=== PATIENT | male | born 1975 | race African-American/Black ===

== ENCOUNTER 2021-07-28 16:55 | Emergency (ER) | payer MEDICAID, SELFPAY ==
--- NOTE | ~2021-07-28 | XR_ITS ---
XR toe 1st LT min 2V 07/28/2021 20:22 Indication: Left first toe pain. Patient is diabetic. Missing toenail. Procedure: 3 views left first toe Comparison: No prior studies for comparison. Findings: There is moderate soft tissue swelling of the left first toe. There are erosive changes at the tuft. There is soft tissue gas overlying the tuft. No acute fracture is identified. There is mild osteoarthritis of the first MTP and IP joints. Impression: 1: Erosive changes of the tuft of the left first distal phalanx with overlying soft tissue swelling w ith gas. Findings suspicious for osteomyelitis. Reviewed, dictated and finalized at location A. Impression: 1: Erosive changes of the tuft of the left first distal phalanx with overlying soft tissue swelling with gas. Findings suspicious for osteomyelitis.
--- NOTE | ~2021-07-28 | CT_ITS ---
EXAMINATION: CT cervical spine wo con DATE: 07/28/2021 20:07 INDICATION: Neck pain after trauma TECHNIQUE: Computed tomography (CT) of the cervical spine was performed without intravenous contrast. The dose-length product was 322 mGy-cm. Automated exposure control and iterative reconstruction tech nique were employed. COMPARISON: None FINDINGS: Odontoid process within normal limits. Lateral masses are normally aligned. There is degene rative disc disease at C4-5, C5-6 and C6-7 with prominent dorsal osteophytes at C5-6 and C6-7. There is straightening of cervical lordosis, likely due to muscle spasm or patient positioning. There is mu ltilevel uncinate and facet hypertrophy. There is emphysema of the lung apices. No paraspinal soft ti ssue abnormality. IMPRESSION: 1. No acute abnormality of the cervical spine. 2: Moderate cervical spondylosis. Reviewed, dictated and finalized at location A.
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
--- NOTE | ~2021-07-28 | CT_ITS ---
EXAMINATION: CT BRAIN W/O DATE: 07/28/2021 20:06 INDICATION: Headache after trauma TECHNIQUE: Computed tomography (CT) of the head was performed without intravenous contrast. The dose- length product was 605.33 mGy-cm. Automated exposure control and iterative reconstruction technique w ere employed. COMPARISON: No prior studies for comparison. FINDINGS: Normal brain parenchymal volume for age. Normal frankel-white differentiation. No acute intrac ranial hemorrhage, infarction, mass or mass effect. No ventriculomegaly or midline shift. Midline sagittal images demonstrate a normal corpus callosum, c raniovertebral junction and sella turcica. Basilar cisterns are patent. No depressed skull fractures. There is mild mucosal thickening of the frontal sinus. IMPRESSION: 1. No acute intracranial abnormality. Reviewed, dictated and finalized at location A.
[2021-07-28 18:53] VITALS: BP 154/80; PULSE 100; RESP 20; TEMP 36.9; O2SAT 100
--- NOTE | 2021-07-28 20:00 | ED.FALL ---
HPI - Fall General Chief Complaint: Fall Stated Complaint: left side body pain Time Seen by Provider: 07/28/21 19:03 History of Present Illness HPI Narrative: Patient is a 46-year-old male who presents ER status post fall 1 day ago. Reports he believes he fell down 10 stairs. He has been able to ambulate since then. He reports significant pain to his left shoulder where there is swelling. Does not want to perform range of motion with the arm at the shoulder. He is able to perform range of motion at the elbow/wrist and fingers. No numbness or tingling. Patient also has some chronic issues with his left toe and believes he struck his toe when he fell as well. He is not on blood thinners. He has not been taking pain medication at home. Patient has diabetic. He is concerned his sugar may have been low when he fell. Related Data Allergies Allergy/AdvReac Type Severity Reaction Status Date / Time No Known Allergies Allergy Verified 07/28/21 20:26 Review of Systems Review of Systems: All systems reviewed & are unremarkable except as noted in HPI and below Constitutional: Constitutional: Denies chills, Denies fever(s) and Denies weakness ENT: Denies nasal congestion and Denies sore throat Cardiovascular: Cardiovascular: Denies chest pain, Denies rapid heart rate and Denies radiating jaw, neck or arm pain Respiratory: Respiratory: Denies cough and Denies dyspnea Musculoskeletal: Musculoskeletal: Reports arthralgias, Reports joint swelling and Denies muscle cramps Integumentary/Breasts: Skin/Breast: Reports erythema Neurologic: Reports syncope, Denies headache(s), Denies focal weakness and Denies numbness PMFSH Past Medical History Medical History (Updated 07/28/21 @ 23:45 by Cayetano Lozano MD) Diabetes Surgical History Surgical History (Updated 07/28/21 @ 23:41 by Cayetano Lozano MD) No pertinent past surgical history Social History Social History (Updated 07/28/21 @ 23:41 by Cayetano Lozano MD) Substance use: never Exam Narrative: GENERAL: Well-appearing, well-nourished, and in no acute distress. HEAD: Normocephalic, atraumatic. EYES: PERRL and EOMI. NECK: Supple. No midline tenderness of the cervical spine. CHEST: Clear to auscultation. No respiratory distress. HEART: Regular rate and rhythm. Normal peripheral pulses. ABDOMEN: Soft, nontender, nondistended. EXTREMITIES: Left upper extremity at the shoulder appears swollen with decreased range of motion due to pain. Normal range of motion at the elbow/wrist/hand. Left lower extremity the great toe is thickened and callused over the plantar aspect, the toenail is ill-defined and there is some slight redness. There is a lot of cotton from the sock stuck to the toe as well.. No frequent discharge. No foul odor. Normal strength. The great toe is slightly pink compared to the other toes. No crepitus of the left foot or leg. SKIN: Warm, dry, no rash. NEURO: Alert and oriented x3. PSYCH: Normal mood and affect. Course Course Emergency Course: Patient informed of lab and imaging results. I discussed with him the importance of hospitalization and prolonged IV antibiotics. Patient reports he does not want to stay in the hospital and he will come back first thing in the morning to be admitted. I discussed with him the risks of not receiving care which includes loss of life/limb/permanent disability. He is verbalized understanding of this and assures me he will be back in the morning. Discussed patient I have serious concerns since he does not have a PCP and he takes no medications for his diabetes. This is not convinced him to stay. Vital Signs Vital signs: Vital Signs Temperature 98.5 F 07/28/21 18:53 Pulse Rate 100 07/28/21 18:53 Respiratory Rate 20 07/28/21 18:53 Blood Pressure 154/80 H 07/28/21 18:53 Pulse Oximetry 100 07/28/21 18:53 Temperature 98.5 F 07/28/21 18:53 Pulse Rate 100 07/28/21 18:53 Respirato
[2021-07-28] MEDS: MORPHINE SULFATE (*CRX) 4 MG/ML INJ IV PUSH (20:28)
[2021-07-28 21:49] LABS: Basophils Absolute Auto 0.1 K/mm3 (0.0-0.1); Basophils Percent Auto 0.3 % (0.2-1.2); Eosinophils Percent Auto 0.1 % (0-4.4); Hematocrit 42.7 % (42.0-52.0); Hemoglobin 14.5 g/dL (14.0-18.0); Immature Granulocyte Absolute 0.12 K/mm3 (0.00-0.031); Immature Granulocyte Percent A 0.6 % (0-0.5); Lymphocytes Absolute Auto 1.01 K/mm3 (0.9-3.2); Lymphocytes Percent Auto 5.2 % (18.3-44.2); Mean Corpuscular Hemoglobin 28.4 pg (26-34); Mean Corpuscular Volume 83.7 fl (80-100); Mean Platelet Volume 11.5 fl (7.4-10.4); Monocytes Absolute Auto 2.6 K/mm3 (0.1-0.6); Monocytes Percent Auto 13.1 % (2.6-8.5); Neutrophils Absolute Auto 15.7 K/mm3 (1.3-6.7); Neutrophils Percent Auto 80.7 % (45.5-73.1); Platelet Count Result 274 k/mm3 (150-375); Red Cell Distribution Width 13.3 % (11.5-14.5); White Blood Count 19.5 K/mm3 (4.5-10.0)
[2021-07-28 22:20] LABS: Erythrocyte Sedimentation Rate 18 mm/hr (0-20)
[2021-07-28 22:40] LABS: Anion Gap 11 mmol/L (8-16); Blood Urea Nitrogen 27 mg/dL (9-20); CRP 8.6 mg/dL (<1.0); Carbon Dioxide 23 mmol/L (22-30); Chloride 96 mmol/L (98-107); Estimated CRCL calculation 114 ml/min; Estimated Glomerular Filt Rate > 60; Glucose 495 mg/dL (65-110); Potassium 4.9 mmol/L (3.4-5.0); Sodium 130 mmol/L (137-145)
--- NOTE | 2021-07-28 23:15 | PC.NURSE ---
Assuming care of pt.
--- NOTE | 2021-07-28 23:47 | PC.NURSE ---
Pt signing out AMA states he will be back in the morning he doesn't want to stay tonight. PT given risk of refusal such as , worsening condition, loss of limb or disability.
== END 2021-07-28 23:50 | disposition left against medical advice (07) ==
PROVIDERS: Emergency Provider Emergency Medicine
DX: M86.9 Osteomyelitis, unspecified (principal); E11.9 Type 2 diabetes mellitus without complications; M47.812 Spondylosis without myelopathy or radiculopathy, cervical region
CPT/HCPCS: 36415; 70450; 72125; 73030; 73660; 80048; 85025; 85652; 86140; 96374; 99284; J2270

== ENCOUNTER 2021-07-29 12:17 | Inpatient (IN) | payer OTHER, MEDICAID, SELFPAY ==
[2021-07-29] VITALS (13 sets, daily range): BP systolic 123–157; BP diastolic 70–89; PULSE 91–99; RESP 18–21; TEMP 36.4–37.1; O2SAT 93–100; BMI 22.5
--- NOTE | ~2021-07-29 | XR_ITS ---
EXAMINATION: XR lg joint inject/asp w image EXAM DATE: 07/30/2021 13:51 INDICATION: Large joint effusion and bacteremia. Abnormal CT scan, suspected septic arthritis. TECHNIQUE: This procedure was performed by Dr. Abilio Reyes, radiologist. I discussed procedure inclu ding the risks, benefits and alternatives with the patient. Risks discussed included bleeding and inf ection. The patient understood the risks and agreed to proceed. A time-out was performed to verify the patient's name, date of , and procedure. The skin over lying the left shoulder joint was prepped and draped in usual sterile fashion. Anesthetic was admini stered with 3 milliliters 1% lidocaine subcutaneously. A 20 G lumbar puncture needle was advanced un krishna fluoroscopic guidance into the joint. A total of 27 mL of purulent fluid was able to be aspirated from the left shoulder joint. The needle was removed and the entry site was cleaned and dressed. Th ere were no immediate complications. Pulsed dose reduction fluoroscopy was used with fluoroscopic ti me of less than 0.1 minutes. The DAP for this procedure was 0.02 Gycm2. A total of 3 images obtaine d for the exam. The procedure was performed on 07/30/2021. FINDINGS: Real-time fluoroscopy demonstrates the needle in the left shoulder joint. Some metallic shr apnel overlying the scapula. IMPRESSION: Status post left shoulder joint aspiration with removal of 27 mL purulent fluid, sent to lab for analysis. Reviewed, dictated and finalized at location A. IMPRESSION: Status post left shoulder joint aspiration with removal of 27 mL pu rulent fluid, sent to lab for analysis.
--- NOTE | ~2021-07-29 | XR_ITS ---
EXAMINATION: XR foot RT min 3V EXAM DATE: 07/29/2021 13:51 INDICATION: Ulcer Rt Plantar Mid Ball Of Foot/Approx Base Of 2nd Toe . TECHNIQUE: Right foot dorsoplantar, lateral and oblique projections obtained and reviewed. There is no prior study for comparison. FINDINGS: Right metatarsal bones unremarkable. Small calcaneal spur inferiorly. There are no acute fractures or dislocations identified. There is no subcutaneous gas. There is lucency which could co rrespond to the soft tissue ulceration along the volar aspect of the 2nd metatarsal head. There are n o bony erosions identified. There are no radiopaque foreign bodies. There is mild to moderate rig ht 1st MTP primary osteoarthritis. IMPRESSION: 1. Probable soft tissue ulceration. 2. No evidence of right foot osteomyelitis. Reviewed, dictated and finalized at location A.
--- NOTE | ~2021-07-29 | US_ITS ---
EXAMINATION: US right upper quadrant DATE: 08/03/2021 14:23 INDICATION: Elevated liver enzymes TECHNIQUE: Multiple grayscale and Doppler ultrasound images of the abdomen were obtained. COMPARISON: None FINDINGS: The pancreatic bodies normal in appearance. The pancreatic tail is not visualized in the region of t he head of the pancreas is obscured by shadowing gas in the stomach and proximal duodenum. Liver has normal echogenicity and contour, with a smooth surface. No liver lesion identified. No intrahepatic b iliary duct dilation suspected. Portal venous flow was seen in the hepatopetal, normal direction and has normal Doppler waveform. The visualized proximal to mid inferior vena cava is normal. The gallbla dder is normal in appearance. There is no cholelithiasis. The common bile duct measures 3 mm, which is normal. Sonographic Wadsworth sign was reported as negative by the household worker.Right kidney demonstra wil normal contour and axis is seen measuring 14.1 x 5.8 x 5.5 cm with no hydronephrosis. The proxima l aorta measures 2.7 cm in AP diameter. There is dilation of the proximal main portal vein which rica ures up to 18 mm proximal to the liver, tapering to 11 mm in the chris hepatis which is nonspecific b ut could be seen with portal venous hypertension. IMPRESSION: 1. Increased diameter of the main portal vein which is nonspecific but which can be seen with portal venous hypertension. Otherwise normal right upper quadrant ultrasound. Reviewed, dictated and finalized at location A. IMPRESSION: 1. Increased diameter of the main portal vein which is nonspecific but which ca n be seen with portal venous hypertension. Otherwise normal right upper quadran t ultrasound.
--- NOTE | ~2021-07-29 | CT_ITS ---
EXAMINATION: CT shoulder LT w con EXAM DATE: 07/30/2021 11:57 INDICATION: Shoulder injury, fall, bacteremia. TECHNIQUE: Spiral CT shoulder LT w con was performed following intravenous injection of 100 mL Omnipa que 350. Axial, coronal and sagittal images were reviewed. The dose-length product (DLP) for this e xamination was 264.12 mGy-cm. The exposure was tailored according to patient size (auto mA exposure control), and iterative reconstruction (ASIR) was used as additional dose reduction technique. Correl ation is made to shoulder x-ray from 07/28. FINDINGS: There is a large left shoulder joint effusion with distention of the subcoracoid bursa, flu id tracking to the anterior aspect of the scapula. There are multiple foci of gas inside and the join t capsule is enhancing. Appearance is consistent with shoulder joint septic arthritis. There is exten sive edema within the subcutaneous fat of the shoulder and obscuring the fat planes between the muscl es. No erosion of the glenoid or humeral head. There is mild primary osteoarthritis. IMPRESSION: Large left shoulder joint effusion with enhancing capsule and foci of gas, likely septic arthritis. I discussed these findings with Cookie Pineda PA-C at 07/30/2021 12:11 CDT. Diagnostic aspiration in order. Reviewed, dictated and finalized at location A.
[2021-07-29 12:58] LABS: Basophils Absolute Auto 0.1 K/mm3 (0.0-0.1); Basophils Percent Auto 0.2 % (0.2-1.2); Hematocrit 39.3 % (42.0-52.0); Hemoglobin 13.3 g/dL (14.0-18.0); Immature Granulocyte Absolute 0.16 K/mm3 (0.00-0.031); Immature Granulocyte Percent A 0.7 % (0-0.5); Lymphocytes Absolute Auto 1.15 K/mm3 (0.9-3.2); Lymphocytes Percent Auto 5.2 % (18.3-44.2); Mean Corpuscular HGB Conc 33.8 g/dl (32-36); Mean Corpuscular Hemoglobin 28.2 pg (26-34); Mean Corpuscular Volume 83.4 fl (80-100); Mean Platelet Volume 11.3 fl (7.4-10.4); Monocytes Absolute Auto 2.9 K/mm3 (0.1-0.6); Monocytes Percent Auto 13.2 % (2.6-8.5); Neutrophils Percent Auto 80.7 % (45.5-73.1); Platelet Count Result 245 k/mm3 (150-375); Red Blood Count 4.71 M/mm3 (4.6-6.20); Red Cell Distribution Width 13.4 % (11.5-14.5); White Blood Count 22.3 K/mm3 (4.5-10.0)
[2021-07-29 13:13] LABS: Anion Gap 8 mmol/L (8-16); Blood Urea Nitrogen 22 mg/dL (9-20); CRP 8.8 mg/dL (<1.0); Calcium 8.4 mg/dL (8.4-10.2); Carbon Dioxide 26 mmol/L (22-30); Chloride 94 mmol/L (98-107); Estimated CRCL calculation 104 ml/min; Estimated Glomerular Filt Rate > 60; Glucose 551 mg/dL (65-110); Potassium 4.8 mmol/L (3.4-5.0); Sodium 128 mmol/L (137-145)
[2021-07-29 13:25] LABS: Erythrocyte Sedimentation Rate 22 mm/hr (0-20)
[2021-07-29] MEDS: LACTATED RINGERS 1,000 ML 999 ML IV CONT (14:01)
[2021-07-29] MEDS: INSULIN HUMAN REGULAR (*BKC) 100 UNITS/ML IV PUSH (14:39)
--- NOTE | 2021-07-29 15:30 | PM.IMHP ---
H&P: HPI History of Present Illness Date/Time: 07/29/21 15:30 Chief Complaint: Left toe wound. Narrative: This is a 46-year-old male smoker with type 2 diabetes mellitus and diabetic peripheral neuropathy who presented to the emergency department earlier today from home for evaluation of a left toe wound. The patient was seen in the emergency department last evening, 24 hours after he took a fall down approximately 10 steps. At that time he had several imaging studies including an x-ray of his left 1st toe, found to have erosive changes of the tuft of the distal phalanx suspicious for osteomyelitis. Initially the patient was going to be admitted for IV antibiotics however he apparently had some things he needed to take care of and he returned today for admission. On exam he was also noted to have an ulcer on the plantar aspect of the right foot which he states has been there for quite some time. It is occasionally uncomfortable with weight-bearing and typically drains serosanguineous fluid. He has no significant pain in the left 1st toe. He reports occasional cold and hot sweats but he has not felt feverish. No nausea or vomiting. No history of MRSA. Review of Systems Review of Systems: Twelve systems were reviewed. Two nights ago he fell down approximately 10 steps and told me he woke up at the bottom of the staircase, thinking perhaps that he blacked out in the fall. He actually thought that perhaps his glucose had been low, causing him to block out though he does not have a glucometer at home and could not checked. He was seen emergency department last evening and CT of the head and neck were unremarkable. His main complaint is of pain in his left shoulder and x-ray done last evening showed no acute fracture. He continues to have pain in this shoulder with only a small amount of movement. Random glucose today was over 500 and the patient admits that he has not taken his metformin for well over 6 months if not longer. He does not check his glucose at home. Endorses occasional blurry vision, polydipsia, and polyuria. He denies ever having signs or symptoms of alcohol withdrawal. Except as documented, all other systems were reviewed and are negative. FORMERLY [facility], [facility] Past Medical History Medical History (Updated 07/29/21 @ 18:20 by Doris Zhong PA-C) Diabetic peripheral neuropathy Tobacco dependence Type 2 diabetes mellitus Surgical History Surgical History No history of previous surgery Family History Family History Father Diabetes mellitus Social History Social History (Updated 07/29/21 @ 18:18 by Doris Zhong PA-C) Social History: Surrogate decision maker: Silver Fairbanks, friend. CODE STATUS: Full code. Smoking packs per day: 1 Smoking cigarettes per day: 20.0 Years smoked: 20 Smoking pack-years: 20.00 Smoking status: Current every day smoker Tobacco type: cigarettes Alcohol intake: current Drinks per week: 14 Alcohol use details: Two cans of beer a night. Substance use: current Substance use type: marijuana Additional living arrangements comments: The patient lives in [place]. The mother of his child lives in this area and he frequently stays with her. Additional occupation/education comments: Currently unemployed. Meds Home Medications and Allergies Home Medications Medication Instructions Recorded Confirmed Type No Home Medications 07/29/21 07/29/21 History Allergies Allergy/AdvReac Type Severity Reaction Status Date / Time No Known Allergies Allergy Verified 07/29/21 17:51 Vital Signs Vital Signs - 24 hr 07/29/21 12:22 07/29/21 12:26 07/29/21 12:27 Temperature 97.5 F L Pulse Rate 99 Respiratory Rate 20 Blood Pressure 129/78 129/78 Pulse Oximetry 99 100 99 07/29/21 12:30 07/29/21 12:43 07/29/21 12:50 Temperature Pulse
[2021-07-29 16:04] LABS: Glucose Point of Care 409 mg/dl (65-105)
[2021-07-29] MEDS: HYDROcodone/acetaminophen (*CRX) 5-325 MG TABLET 1 TAB PO ×2 (16:39→20:31)
--- NOTE | 2021-07-29 16:45 | ED.SKABFB ---
HPI - Skin/Abscess/Foreign Bdy General Chief complaint: Skin/Abscess/Foreign Body Stated complaint: infection in my bone Time Seen by Provider: 07/29/21 12:37 Source: patient Mode of arrival: ambulatory Limitations: no limitations History of Present Illness HPI narrative: 46-year-old male Here for infected left great toe Basically, see last night's note when he was evaluated in the ED and admission was recommended but the patient left to take care of some things and is now returned for said admission He also had a very high blood sugar last night which is even a little bit higher now He mentions that he has not taken Metformin for at least a week He also notes that he has a large hole in the bottom of his right foot which she did not called anyone's attention yesterday Related Data Home Medications Medication Instructions Recorded Confirmed No Home Medications 07/29/21 07/29/21 Allergies Allergy/AdvReac Type Severity Reaction Status Date / Time No Known Allergies Allergy Verified 07/29/21 12:17 Review of Systems Review of Systems: All systems reviewed & are unremarkable except as noted in HPI and below Constitutional: Constitutional: Reports no additional constitutional complaints, Denies chills, Denies fever(s) and Denies headache(s) ENT: Denies headache(s) and Denies sore throat Cardiovascular: Cardiovascular: Denies chest pain and Denies dyspnea Respiratory: Respiratory: Denies cough and Denies dyspnea Gastrointestinal: Gastrointestinal: Denies diarrhea, Denies nausea and Denies vomiting Musculoskeletal: Musculoskeletal: Reports as per HPI, Denies deformity, Reports arthralgias, Reports joint swelling and Denies numbness Integumentary/Breasts: Skin/Breast: Denies rash and Denies wounds Neurologic: Denies headache(s), Denies focal weakness and Denies numbness PMFSH Past Medical History Medical History Tobacco dependence Type 2 diabetes mellitus Surgical History Surgical History No history of previous surgery Family History Family History Other Diabetes mellitus Social History Social History Social History: The patient lives in [place]. Currently unemployed. He smokes a pack of cigarettes a day. Drinks approximately 2 cans of beer a night. No illicit substance use. He designates his friend, Silver Fairbanks, is his surrogate decision-maker. CODE STATUS: Full code Exam Const: General: cooperative, no acute distress and alert Nutritional Appearance: thin Orientation/consciousness: patient oriented x3 (alert) HENMT: Head: normal to inspection, normocephalic and atraumatic Ears: external ears normal General nose exam: no epistaxis Eyes: Conjunctivae: conjunctivae normal EOM: EOMs intact bilaterally Neck: Neck: normal visual inspection, supple and no JVD Resp: Effort & Inspection: normal respiratory effort and not labored Auscultation: other (BS =) Skin: General skin exam: normal color and no rashes or lesions noted Neuro: General: patient oriented x3 (alert) and moves all extremities Speech: normal speech Extrem: Other: Left great toe and forefoot are tender, swollen, erythematous There is a deep ulcer over probably the second metatarsal head of the right foot 2+ dorsalis pedis pulses bilaterally Psych: Affect: normal affect Course Course Emergency Course: Marked hyperglycemia was treated with fluids and a single dose of insulin Osteo was not suspected in the right foot based upon plain films Discussed with hospitalist for admission for osteo and hyperglycemia Vital Signs Vital signs: Vital Signs Temperature 36.4 C L 07/29/21 12:22 Pulse Rate 99 07/29/21 12:22 Respiratory Rate 20 07/29/21 12:22 Blood Pressure 129/78 07/29/21 12:22
[2021-07-29] MEDS: LACTATED RINGERS 1,000 ML 125 ML IV CONT (17:25)
--- NOTE | 2021-07-29 17:53 | ADMGEN ---
This patient, Celso López, was admitted to Medical Room 344-01. Patient/family oriented to hospital policies and general routines including ID bracelet, bed and alarms, visiting hours, pain management, procedures, bathroom and other care routines, personal items, smoking policy, room service/diet, and visiting hours. Information on how to activate the Rapid Response Team has been discussed. Patient/Family are encouraged to report perceived risks to care and to ask questions if they do not understand what they are told or what they should do.
--- NOTE | 2021-07-29 17:53 | PC.NURSE ---
Patient was previously on 500 mg BID Metformin but has not been on it in around a year
[2021-07-29 18:21] LABS: Lactic Acid Reflex 1.1 mmol/L (0.7-2.1)
[2021-07-29 18:35] LABS: Basophils Absolute Auto 0.1 K/mm3 (0.0-0.1); Basophils Percent Auto 0.2 % (0.2-1.2); Eosinophils Percent Auto 0.1 % (0-4.4); Hemoglobin 12.8 g/dL (14.0-18.0); Immature Granulocyte Percent A 0.9 % (0-0.5); Lymphocytes Absolute Auto 1.52 K/mm3 (0.9-3.2); Lymphocytes Percent Auto 7.2 % (18.3-44.2); Mean Corpuscular HGB Conc 34.6 g/dl (32-36); Mean Corpuscular Hemoglobin 28.1 pg (26-34); Mean Corpuscular Volume 81.3 fl (80-100); Mean Platelet Volume 11.6 fl (7.4-10.4); Monocytes Absolute Auto 2.7 K/mm3 (0.1-0.6); Monocytes Percent Auto 12.9 % (2.6-8.5); Neutrophils Absolute Auto 16.7 K/mm3 (1.3-6.7); Neutrophils Percent Auto 78.7 % (45.5-73.1); Platelet Count Result 268 k/mm3 (150-375); Red Blood Count 4.55 M/mm3 (4.6-6.20); Red Cell Distribution Width 13.4 % (11.5-14.5); White Blood Count 21.2 K/mm3 (4.5-10.0)
[2021-07-29 19:59] LABS: Hemoglobin A1C 10.4 % (<5.7)
[2021-07-29 20:58] LABS: Glucose Point of Care 354 mg/dl (65-105)
[2021-07-30] MEDS: INSULIN GLARGINE (*BKC) 100 UNITS/ML 10 UNITS SUB-Q (00:07)
[2021-07-30] MEDS: HYDROcodone/acetaminophen (*CRX) 5-325 MG TABLET 1 TAB PO ×5 (04:21→23:18)
[2021-07-30 06:00] VITALS: BP 155/83; PULSE 91; RESP 20; TEMP 36.2; O2SAT 99
[2021-07-30 06:31] LABS: Basophils Absolute Auto 0.1 K/mm3 (0.0-0.1); Basophils Percent Auto 0.4 % (0.2-1.2); Eosinophils Percent Auto 0.1 % (0-4.4); Hematocrit 35.8 % (42.0-52.0); Hemoglobin 12.3 g/dL (14.0-18.0); Immature Granulocyte Absolute 0.13 K/mm3 (0.00-0.031); Immature Granulocyte Percent A 0.7 % (0-0.5); Lymphocytes Absolute Auto 1.35 K/mm3 (0.9-3.2); Lymphocytes Percent Auto 7.2 % (18.3-44.2); Mean Corpuscular HGB Conc 34.4 g/dl (32-36); Mean Corpuscular Hemoglobin 28.1 pg (26-34); Mean Corpuscular Volume 81.9 fl (80-100); Mean Platelet Volume 11.7 fl (7.4-10.4); Monocytes Absolute Auto 2.5 K/mm3 (0.1-0.6); Monocytes Percent Auto 13.1 % (2.6-8.5); Neutrophils Absolute Auto 14.8 K/mm3 (1.3-6.7); Neutrophils Percent Auto 78.5 % (45.5-73.1); Platelet Count Result 257 k/mm3 (150-375); Red Blood Count 4.37 M/mm3 (4.6-6.20); Red Cell Distribution Width 13.3 % (11.5-14.5); White Blood Count 18.8 K/mm3 (4.5-10.0)
[2021-07-30 07:46] LABS: Glucose Point of Care 223 mg/dl (65-105)
[2021-07-30] MEDS: ENOXAPARIN 40 MG/0.4 ML SYRINGE SUB-Q (07:58)
[2021-07-30] MEDS: INSULIN ASPART (*BKC) 100 UNITS/ML SUB-Q ×3 (07:59→16:22)
[2021-07-30 09:24] LABS: Anion Gap 6 mmol/L (8-16); Blood Urea Nitrogen 15 mg/dL (9-20); CRP 29.1 mg/dL (<1.0); Calcium 8.6 mg/dL (8.4-10.2); Carbon Dioxide 26 mmol/L (22-30); Chloride 99 mmol/L (98-107); Estimated CRCL calculation 160 ml/min; Estimated Glomerular Filt Rate > 60; Glucose 214 mg/dL (65-110); Potassium 4.2 mmol/L (3.4-5.0); Sodium 131 mmol/L (137-145)
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
[2021-07-30 11:46] LABS: Glucose Point of Care 394 mg/dl (65-105)
[2021-07-30 13:05] LABS: Uric Acid 2.6 mg/dL (3.5-8.5)
[2021-07-30 14:00] VITALS: BP 133/80; PULSE 87; RESP 18; TEMP 37.5; O2SAT 99
--- NOTE | 2021-07-30 14:13 | PM.CNGS ---
Assessment and Plan Assessment and plan (1) Left hallux osteomyelitis: Code(s): M86.9 - Osteomyelitis, unspecified Status: Acute Assessment and Plan: I have reviewed the x-rays and discussed findings with the patient. He does have findings concerning for osteomyelitis of the left 1st toe. I discussed that this may eventually require amputation. Will continue with local wound care at this time and monitor for any improvement in swelling. I discussed that this infection can progress and it might be better to proceed with amputation earlier to avoid any more proximal infection. Will have wound care nurses evaluate patient tomorrow for any other recommendations on local wound care (2) Diabetic ulcer of right foot: Qualifiers: Diabetic foot ulcer location: midfoot Diabetes mellitus type: type 2 Non-pressure ulcer stage: unspecified non-pressure ulcer stage Qualified Code(s): E11.621 - Type 2 diabetes mellitus with foot ulcer; L97.419 - Non-pressure chronic ulcer of right heel and midfoot with unspecified severity Code(s): E11.621 - Type 2 diabetes mellitus with foot ulcer; L97.519 - Non-pressure chronic ulcer of other part of right foot with unspecified severity Status: Acute Assessment and Plan: plantar wound on right foot will likely require some surgical debridement. Will plan for this to be done in the next couple days, but will await decision on left toe treatment. (3) Type 2 diabetes mellitus with hyperglycemia: Qualifiers: Diabetes mellitus assisted insulin use: without assisted use Qualified Code(s): E11.65 - Type 2 diabetes mellitus with hyperglycemia Code(s): E11.65 - Type 2 diabetes mellitus with hyperglycemia Status: Acute Assessment and Plan: discussed the importance of better glucose control to avoid further vascular or infectious complications (4) Tobacco dependence: Code(s): F17.200 - Nicotine dependence, unspecified, uncomplicated Status: Acute (5) Septicemia: Code(s): A41.9 - Sepsis, unspecified organism Status: Acute (6) Effusion of left shoulder joint: Code(s): M25.412 - Effusion, left shoulder Status: Acute History of Present Illness Consult details Consult date: 07/30/21 Reason for consult: other (Left toe right foot diabetic wounds) Requesting physician: Doris Zhong PA-C Narrative: this is a 46-year-old man who presented to the emergency department yesterday with worsening complaints for with foot wounds and shoulder pain from a recent fall. He had actually been to the emergency department on 07/28/2021. He was found to have a very high white blood count and was also noted to have a glucose of 495. A toe x-ray on 07/28 showed erosive changes of the 1st toe consistent with osteomyelitis. He left the emergency department AMA. He then presented back to the emergency department on 07/29 with similar complaints. His white blood count was higher and his glucose was 551. he was then admitted and placed on broad-spectrum IV antibiotics. He is also found to have a large left shoulder joint effusion suspicious for septic arthritis. His blood cultures are coming back positive for Gram-positive cocci in chains. The patient states that his glucose has been poorly controlled lately. He has not been on his normal type 2 diabetes meds. He has also lost a significant amount of weight with the diabetes. He denies any prior history of peripheral vascular disease or claudication. Review of Systems Review of Systems: All systems reviewed & are unremarkable except as noted in HPI and below Constitutional: Constitutional: Denies chills, Denies fever(s) and Reports weight loss Eyes: Eyes: Denies change in vision ENT: Denies hearing loss, Denies neck pain and Denies sore throat Cardiovascular: Cardiovascular: Denies chest pain and Denies dyspnea Respiratory: Respiratory: Denies cough, Denies
[2021-07-30 15:04] LABS: Source Synovial Fluid Synovial fluid
[2021-07-30 15:05] LABS: Appearance Synovial Fluid Turbid (Clear); Color Synovial Fluid Brown (Colorless)
[2021-07-30 15:06] LABS: Lymphocytes Synovial Fluid 1 %; Monocytes Synovial Fluid 2 %; Neutrophils Synovial Fluid 97 % (0-25)
[2021-07-30 15:07] LABS: Crystals Synovial Fluid None Seen (None Seen)
[2021-07-30] MEDS: VANCOMYCIN HCL 1,250 MG in SODIUM CHLORIDE 0.9% IV 250 ML 200 ML IVPB (15:23)
[2021-07-30 16:21] LABS: Glucose Point of Care 394 mg/dl (65-105)
[2021-07-30] MEDS: INSULIN GLARGINE (*BKC) 100 UNITS/ML 15 UNITS SUB-Q (20:13)
[2021-07-30 20:17] LABS: Glucose Point of Care 371 mg/dl (65-105)
[2021-07-30 22:00] VITALS: BP 124/75; PULSE 80; RESP 16; TEMP 37.1; O2SAT 100
[2021-07-31] VITALS (16 sets, daily range): BP systolic 117–190; BP diastolic 72–102; PULSE 75–98; RESP 11–22; TEMP 36.2–37.1; O2SAT 96–100
[2021-07-31] MEDS: HYDROcodone/acetaminophen (*CRX) 5-325 MG TABLET 1 TAB PO ×2 (03:18→07:37)
[2021-07-31] MEDS: VANCOMYCIN HCL 1,250 MG in SODIUM CHLORIDE 0.9% IV 250 ML IVPB (03:19)
[2021-07-31 05:25] LABS: Basophils Absolute Auto 0.1 K/mm3 (0.0-0.1); Basophils Percent Auto 0.5 % (0.2-1.2); Eosinophils Absolute Auto 0.1 K/mm3 (0-0.3); Eosinophils Percent Auto 0.3 % (0-4.4); Hematocrit 35.4 % (42.0-52.0); Immature Granulocyte Absolute 0.13 K/mm3 (0.00-0.031); Immature Granulocyte Percent A 0.9 % (0-0.5); Lymphocytes Absolute Auto 2.02 K/mm3 (0.9-3.2); Lymphocytes Percent Auto 13.3 % (18.3-44.2); Mean Corpuscular HGB Conc 33.9 g/dl (32-36); Mean Corpuscular Hemoglobin 28.5 pg (26-34); Mean Corpuscular Volume 84.1 fl (80-100); Mean Platelet Volume 10.6 fl (7.4-10.4); Monocytes Absolute Auto 2.1 K/mm3 (0.1-0.6); Neutrophils Absolute Auto 10.8 K/mm3 (1.3-6.7); Platelet Count Result 275 k/mm3 (150-375); Red Blood Count 4.21 M/mm3 (4.6-6.20); Red Cell Distribution Width 13.3 % (11.5-14.5); White Blood Count 15.2 K/mm3 (4.5-10.0)
[2021-07-31 06:21] LABS: HIV 1/2 Ab P24 Ag Result Negative (Negative)
[2021-07-31 07:09] LABS: Alanine Aminotransferase 80 U/L (4-50); Albumin Level 3.1 g/dL (3.5-5.1); Alkaline Phosphatase 156 U/L (38-126); Anion Gap 3 mmol/L (8-16); Aspartate Amino Transferase 58 U/L (17-59); Bilirubin,Total 0.8 mg/dL (0.2-1.3); Blood Urea Nitrogen 13 mg/dL (9-20); CRP 29.9 mg/dL (<1.0); Calcium 8.7 mg/dL (8.4-10.2); Carbon Dioxide 32 mmol/L (22-30); Chloride 97 mmol/L (98-107); Estimated CRCL calculation 160 ml/min; Estimated Glomerular Filt Rate > 60; Glucose 217 mg/dL (65-110); Potassium 3.7 mmol/L (3.4-5.0); Sodium 132 mmol/L (137-145)
[2021-07-31 08:08] LABS: Glucose Point of Care 229 mg/dl (65-105)
[2021-07-31] MEDS: INSULIN ASPART (*BKC) 100 UNITS/ML SUB-Q (08:25)
[2021-07-31] MEDS: ENOXAPARIN 40 MG/0.4 ML SYRINGE SUB-Q (08:25)
--- NOTE | 2021-07-31 09:09 | PM.CNOR ---
Assessment and Plan Additional Plan septic left shoulder prob staph aureus as this is growing in his blood 27 cc aspirated by radiology earlier with 67k WBCs cultures on fluid aspirate still pending NPO now - eat bfast at around 7:30. will take to OR this PM for I+D. shoulder ascope and possible placement of drain. History of Present Illness HPI Consult date: 07/31/21 Chief complaint: Left 1st toe osteomyelitis Narrative: 46 yo w/ DM and swollen left shoulder which was aspirated yest and has a presumtive septic shoulder PMFSH Past Medical History Medical History Diabetic peripheral neuropathy Tobacco dependence Type 2 diabetes mellitus Surgical History Surgical History No history of previous surgery Family History Family History Father Diabetes mellitus Social History Social History Social History: Surrogate decision maker: Silver Fairbanks, friend. CODE STATUS: Full code. Smoking packs per day: 1 Smoking cigarettes per day: 20.0 Years smoked: 20 Smoking pack-years: 20.00 Smoking status: Current every day smoker Tobacco type: cigarettes Alcohol intake: current Drinks per week: 14 Alcohol use details: Two cans of beer a night. Substance use: current Substance use type: marijuana Additional living arrangements comments: The patient lives in [place]. The mother of his child lives in this area and he frequently stays with her. Additional occupation/education comments: Currently unemployed. Meds Home Medications and Allergies Home Medications Medication Instructions Recorded Confirmed Type No Home Medications 07/29/21 07/29/21 History Allergies Allergy/AdvReac Type Severity Reaction Status Date / Time No Known Allergies Allergy Verified 07/29/21 17:51 Vital Signs Vital Signs - 24 hr 07/30/21 14:00 07/30/21 22:00 07/31/21 05:29 Temperature 37.5 C 37.1 C 37.1 C Pulse Rate 87 80 80 Respiratory Rate 18 16 16 Blood Pressure 133/80 124/75 117/74 Pulse Oximetry 99 100 98 Exam Extrem: Other: left shoudler swollen and warm to touch pain with any motion NV intact distally aspriation site is C+D Results Labs Result Diagrams: 07/31/21 05:07 07/31/21 05:07 Labs: Abnormal lab results 07/30/21 07/30/21 07/30/21 Range/Units 05:18 11:44 12:34 WBC (4.5-10.0) K/mm3 RBC (4.6-6.20) M/mm3 Hgb (14.0-18.0) g/dL Hct (42.0-52.0) % MPV (7.4-10.4) fl Immature Gran % (Auto) (0-0.5) % Lymph % (Auto) (18.3-44.2) % [place] % (Auto) (2.6-8.5) % [place] # (Auto) (0.1-0.6) K/mm3 Abs Immat Gran (auto) (0.00-0.031) K/mm3 Absolute Neuts (auto) (1.3-6.7) K/mm3 Sodium 131 L (137-145) mmol/L Chloride (98-107) mmol/L Carbon Dioxide (22-30) mmol/L Anion Gap 6 L (8-16) mmol/L Creatinine 0.50 L (0.7-1.3) mg/dL Glucose 214 H (65-110) mg/dL POC Capillary Glucose 394 H (65-105) mg/dl Uric Acid 2.6 L (3.5-8.5) mg/dL ALT (4-50) U/L Alkaline Phosphatase (38-126) U/L C-Reactive Protein 29.1 H (<1.0) mg/dL Albumin (3.5-5.1) g/dL Synovial Appearance (Clear) Synovial RBC (0-0) /uL Synovial Nuc Cells (0-200) /uL Synovial Neutrophils (0-25) % 07/30/21 07/30/21 07/30/21 Range/Units 13:30 16:18 20:09 WBC (4.5-10.0) K/mm3 RBC (4.6-6.20) M/mm3 Hgb (14.0-18.0) g/dL Hct (42.0-52.0) % MPV (7.4-10.4) fl Immature Gran % (Auto) (0-0.5) % Lymph % (Auto) (18.3-44.2) % [place] % (Auto) (2.6-8.5) % [place] # (Auto) (0.1-0.6) K/mm3 Abs Immat Gran (auto) (0.00-0.031) K/mm3 Absolute Neuts (auto) (1.3-6.7) K/mm3 Sodium (137-145) mmol/L Chloride (
[2021-07-31 11:33] LABS: Glucose Point of Care 248 mg/dl (65-105)
--- NOTE | 2021-07-31 12:55 | PC.NURSE ---
To OR per bed, IV LFA. Report given to
--- NOTE | 2021-07-31 13:15 | PM.PNGS ---
Progress Note: A&P Assessment and Plan (1) Left hallux osteomyelitis: Code(s): M86.9 - Osteomyelitis, unspecified Status: Acute Assessment and Plan: Left first toe with findings on x-ray concerning for osteomyelitis. There is no large open wound, but there is a scant amount of purulent drainage that was expressed on the dorsal aspect of the toe today. Discussed treatment options with the patient again today. Could consider proceeding with an I&D of the left great toe prior to considering amputation. He is scheduled to go to the OR today for I&D left shoulder. Continue broad-spectrum IV antibiotics and we will continue with local wound care. If this does not improve over the next few days with more conservative treatment, then we may need to consider amputation sooner. (2) Diabetic ulcer of right foot: Qualifiers: Diabetes mellitus type: type 2 Diabetic foot ulcer location: midfoot Non-pressure ulcer stage: unspecified non-pressure ulcer stage Qualified Code(s): E11.621 - Type 2 diabetes mellitus with foot ulcer; L97.419 - Non-pressure chronic ulcer of right heel and midfoot with unspecified severity Code(s): E11.621 - Type 2 diabetes mellitus with foot ulcer; L97.519 - Non-pressure chronic ulcer of other part of right foot with unspecified severity Status: Acute Assessment and Plan: Plantar wound on the right foot is currently stable. This will likely require some surgical debridement with the large callus around the open wound. Would try to plan for debridement on the right foot ulcer at the time of any surgical intervention to the left foot. See plan above. (3) Septicemia: Code(s): A41.9 - Sepsis, unspecified organism Status: Acute Assessment and Plan: Secondary to osteomyelitis of left great toe versus septic left shoulder. Continue broad-spectrum IV antibiotics. Preliminary blood cx show growth of group B strep. L shoulder aspiration cx pending. See plan above regarding diabetic foot ulcer. (4) Effusion of left shoulder joint: Code(s): M25.412 - Effusion, left shoulder Status: Acute Assessment and Plan: Presumed septic left shoulder. Ortho consulted and recommendations noted. Plan to proceed to the OR for I&D later today. 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 Hgb A1C 10.4. Management per Hospitalist. Additional Plan I have discussed the patient's case and plan of care with Dr. Hanley. Subjective Subjective Date/Time Seen: 07/31/21 10:15 Patient reports: no new complaints and afebrile Interval history: This is a 46 yo uncontrolled diabetic AA male who presented to the hospital with diabetic foot ulcer of the right foot, possible osteomyelitis of the left 1st toe, sepsis, and also found to have a potentially septic left shoulder. He was admitted and started on broad-spectrum IV antibiotics. Blood cultures were drawn and preliminary results show a growth of Group B strep. Chart reviewed. The patient is now seen this morning with the wound care nurse. He has no specific complaints this morning. No acute events overnight. He states he is going to the OR today for surgery on his left shoulder. He reports pain in his left shoulder and feet that is about the same as when he was initially admitted. He cannot recall when he first noticed the wound on his right foot or swelling in his left 1st toe. He feels it has been awhile. He does not have a PCP and denies ever seeing a [employer] Job Retention Specialist in the past. He is currently unemployed. Review of Systems Review of Systems: All systems reviewed & are unremarkable except as noted in HPI
[2021-07-31 13:26] LABS: Glucose Point of Care 238 mg/dl (65-105)
[2021-07-31] MEDS: LACTATED RINGERS 1,000 ML 30 ML IV CONT ×2 (13:33→16:02)
--- NOTE | 2021-07-31 14:02 | WPDANESEPPF ---
Anes - Initial Pre Proc Eval Procedure: Operation Date: 07/31/21 14:00 Proposed Procedures p Incision and Drainage Left Shoulder - Gab Winn MD Date/Time: 07/31/21 14:02 Surgeon: Cookie Pineda PA-C Pre Op Diagnosis: Left 1st toe osteomyelitis Patient Data Age: 46 Gender: M Height: 1.8 m Weight: 73.3 kg Last Vital Signs Temp 37.1 C 07/31/21 13:36 Pulse 76 07/31/21 13:36 Resp 14 07/31/21 13:36 BP 132/81 07/31/21 13:36 Pulse Ox 100 07/31/21 13:36 Allergies Allergy/AdvReac Type Severity Reaction Status Date / Time No Known Allergies Allergy Verified 07/29/21 17:51 Home Medications Medication Instructions Recorded Confirmed Type No Home Medications 07/29/21 07/29/21 History Laboratory Tests 07/30/21 07/30/21 07/30/21 13:30 13:30 16:18 WBC RBC Hgb Hct MCV MCH MCHC RDW Plt Count MPV Immature Gran % (Auto) Neut % (Auto) Lymph % (Auto) [place] % (Auto) Eos % (Auto) Baso % (Auto) Lymph # (Auto) [place] # (Auto) Eos # (Auto) Baso # (Auto) Abs Immat Gran (auto) Absolute Neuts (auto) Absolute Nucleated RBC Nucleated RBC % Sodium Potassium Chloride Carbon Dioxide Anion Gap BUN Creatinine Estim Creat Clear Calc Estimated GFR Glucose POC Capillary Glucose 394 mg/dl H mg/dl (65-105) Calcium Total Bilirubin Direct Bilirubin AST ALT Alkaline Phosphatase C-Reactive Protein Total Protein Albumin Synovial Source Synovial fluid Synovial Color Brown (Colorless) Synovial Appearance Turbid A (Clear) Synovial RBC 25893 /uL H /uL (0-0) Synovial Nuc Cells [id number] /uL H /uL (0-200) Synovial Neutrophils 97 % H % (0-25) Synovial Lymphocytes 1 % % Synovial Monocytes 2 % % Synovial Crystals None seen (None Seen) HIV 1&2 Ab/P24 Ag 4thGn 07/30/21 07/31/21 07/31/21 20:09 05:07 05:07 WBC 15.2 K/mm3 H K/mm3 (4.5-10.0) RBC 4.21 M/mm3 L M/mm3 (4.6-6.20) Hgb 12.0 g/dL L g/dL (14.0-18.0) Hct 35.4 % L % (42.0-52.0) MCV 84.1 fl fl (80-100) MCH 28.5 pg pg (26-34) MCHC 33.9 g/dl g/dl (32-36) RDW 13.3 % % (11.5-14.5) Plt Count 275 k/mm3 k/mm3 (150-375) MPV 10.6 fl H fl (7.4-10.4) Immature Gran % (Auto) 0.9 % H % (0-0.5) Neut % (Auto) 71.0 % % (45.5-73.1) Lymph % (Auto) 13.3 % L % (18.3-44.2) [place] % (Auto) 14.0 % H % (2.6-8.5) Eos % (Auto) 0.3 % % (0-4.4) Baso % (Auto) 0.5 % % (0.2-1.2) Lymph # (Auto) 2.02 K/mm3 K/mm3 (0.9-3.2) [place] # (Auto) 2.1 K/mm3 H K/mm3 (0.1-0.6) Eos # (Auto) 0.1 K/mm3 K/mm3 (0-0.3) Baso # (Auto) 0.1 K/mm3 K/mm3 (0.0-0.1) Abs Immat Gran (auto) 0.13 K/mm3 H K/mm3 (0.00-0.031) Absolute Neuts (auto) 10.8 K/mm3 H K/mm3 (1.3-6.7) Absolute Nucleated RBC 0.0 K/mm3 K/mm3 (0.0-0.012) Nucleated RBC % 0.0 % % (0.0-0.2) Sodium Potassium Chloride Carbon Dioxide Anion Gap BUN Creatinine Estim Creat Clear Calc Estimated GFR Glucose POC Capillary Glucose 371 mg/dl H mg/dl (65-105) Calcium Total Bilirubin Dir
--- NOTE | 2021-07-31 14:02 | WPDHPUPDATE1 ---
History and Physical Update Update Date/Time: 07/31/21 14:02 History and Physical has been reviewed, including an updated exam of the patient. There are NO changes in the patient's condition. Risks, benefits, and alternatives have been discussed and questions answered. Patient agrees to proceed with procedure.
--- NOTE | 2021-07-31 14:06 | WPDINFPN2 ---
Progress Note: A&P Assessment and Plan (1) Septicemia: Code(s): A41.9 - Sepsis, unspecified organism Status: Acute Assessment and Plan: Group B Strep bacteremia with infection, LE source, resulting in septic arthritis L shoulder REC (antibiotic # 3) Amp #1, anticipate ~ 28 days IV therapy. Subjective Date/time seen: 07/31/21 14:06 Objective Data Vital Signs Vital Signs: Vital Signs - 24 hr 07/30/21 22:00 07/31/21 05:29 07/31/21 08:25 Temperature 37.1 C 37.1 C Pulse Rate 80 80 Respiratory Rate 16 16 16 Blood Pressure 124/75 117/74 Pulse Oximetry 100 98 97 07/31/21 13:36 Temperature 37.1 C Pulse Rate 76 Respiratory Rate 14 Blood Pressure 132/81 Pulse Oximetry 100 Intake/Output Intake/Output: Intake & Output 07/28/21 07/29/21 07/30/21 07/31/21 23:59 23:59 23:59 23:59 Intake Total 1350 2180 690 Balance 1350 2180 690 Meds/Results Medications: Active Medications Generic Name Dose Route Start Last Admin Trade Name Freq PRN Reason Stop Dose Admin Acetaminophen 650 mg 07/29/21 16:32 Acetaminophen 325 Mg Tablet PO Q4H PRN Mild Pain (1-3) or Fever Hydrocodone Bitart/Acetaminophen 1 tab 07/29/21 16:32 07/31/21 07:37 Hydrocodone/Acetaminophen (*Crx) 5-325 Mg Tablet PO 1 tab Q4H PRN Administration Moderate Pain (4-6) Dextrose 12.5 gm 07/29/21 22:56 Dextrose 50% 25 Gm/50 Ml Syringe IV PUSH PRN PRN Hypoglycemia Protocol Enoxaparin Sodium 40 mg 07/30/21 09:00 07/31/21 08:25 Enoxaparin 40 Mg/0.4 Ml Syringe SUB-Q 40 mg DAILY FELIPE Administration Fentanyl Citrate 25 mcg 07/31/21 14:03 Fentanyl Citrate Inj (*Crx) 100 Mcg/2 Ml Vial IV PUSH Q2M PRN Pain Glucagon 1 mg 07/29/21 22:56 Glucagon For Inj 1 Mg Vial IM PRN PRN Hypoglycemia Protocol Glucose 15 gm 07/29/21 22:56 Glucose Oral Gel 15 Gm Of Glucse In 37.5 Gm Tube PO PRN PRN Hypoglycemia Protocol Imipenem/Cilastatin Sodium 500 mg in 100 mls @ 300 mls/hr 07/30/21 00:00 07/31/21 12:05 Primaxin 500 Mg/D5w 100 Ml IVPB Infused Q6HR FELIPE Infusion Dextrose 1,000 mls @ 100 mls/hr 07/29/21 22:56 Dextrose 5% 1,000 Ml IVPB PRN PRN Hypoglycemia Protocol Vancomycin HCl 1,250 mg/ 250 mls @ 200 mls/hr 07/30/21 16:00 07/31/21 04:19 Sodium Chloride IVPB Infused Q12H FELIPE Infusion Lactated Ringer's 1,000 mls @ 30 mls/hr 07/31/21 13:30 07/31/21 13:33 Lr - Lactated Ringers Iv IV CONT 30 mls/hr .Q24H FELIPE Administration Lactated Ringer's 1,000 mls @ 30 mls/hr 07/31/21 14:05 Lr - Lactated Ringers Iv IV CONT .Q24H [facility] Insulin Aspart 2 - 5 units 07/30/21 08:00 07/31/21 11:42 Insulin Aspart (*Bkc) 100 Units/Ml SUB-Q Not Given TIDWM [facility] Protocol Insulin Glargine 15 units 07/30/21 21:00 07/30/21 20:13 Insulin Glargine (*Bkc) 100 Units/Ml SUB-Q 15 units HS FELIPE Administration Nicotine 1 patch 07/30/21 09:00 07/31/21 08:26 Nicotine (*Pbkc) 21 Mg Patch TRANSDERM Not Given QAM [facility] Ondansetron HCl 4 mg 07/29/21 16:43 Ondansetron Inj 4 Mg/2 Ml Vial IV PUSH Q4H PRN Nausea Ondansetron HCl 4 mg 07/31/21 14:03 Ondansetron Inj 4 Mg/2 Ml Vial IV PUSH ONCE PRN Nausea Silver Nitrate 1 applic 08/01/21 09:00 Silvergel (Elta) 45 Ml TOPICAL DAILY [facility] Radiology Results: ITS Impressions Foot X-Ray 07/29/21 13:53 IMPRESSION: 1. Probable soft tissue ulceration. 2. No evidence of right foot osteomyelitis. Shoulder CT 07/30/21 12:07 IMPRESSION: Large left shoulder joint effusion with enhancing capsule and foci of gas, likely septic arthritis. I discussed these findings with Cookie Pineda PA-C at 07/30/2021 12:11 CDT. Diagnostic aspiration in order. Joint Aspiration/Injection 07/30/21 14:24 IMPRESSION: Status post left shoulder joint aspiration with removal of 27 mL purulent fluid
[2021-07-31] MEDS: INSULIN HUMAN REGULAR (*BKC) 100 UNITS/ML 6 UNITS SUB-Q (14:11)
[2021-07-31] MEDS: EPINEPHrine HCL INJ 1 MG/ML AMPUL IRRIGATION (15:30)
[2021-07-31] MEDS: ceFAZolin SODIUM 1 GM VIAL 6 GM IRRIGATION (15:40)
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
--- NOTE | 2021-07-31 16:17 | W.PM.PROC2 ---
Procedure Note - Detailed Date of Procedure 07/31/21 Pre-op Diagnosis Left shoulder septic arthritis Post-op Diagnosis same Procedure Performed Left Shoulder Arthroscopy and Irrigation and Debridement Intra-operative cultures Placement of intra-articular drain Surgeon Gab Winn MD Anesthesia general Indications Septic arthritis Findings Purulent shoulder Description of Procedure The patient was identified and brought to the operating room and placed in supine position on the operating room table. This was a beach chair and he was secured in the beach chair all his bony prominences were checked made special concern over the strap that went across his eyebrows that it was not too tight and then he was placed in the beach chair position. He was then sterilely prepped and draped in the usual fashion. The bony landmarks were outlined on the skin. A posterior portal the standard portal was established with an 11 blade scalp L 2 cm inferior and 2 cm long medial to the posterolateral corner of the acromion. The blunt trocar was utilized to place the arthroscopic trocar into the shoulder joint. A diagnostic arthroscopy of the shoulder was performed. A spinal needle was placed into the anterior triangle and then a small incision was made anteriorly and a plastic outflow cannula was placed. The joint was then copiously irrigated with 9 L of lactated Ringer's solution. The last 6 L had Ancef in the irrigation. A surgical time in and time-out had been performed we confirmed this was the correct patient and the correct side the lisa that I had placed in the holding room was present prior to making the incisions. The patient was to receive vancomycin and so this was started and dripped in slowly during the case. His other antibiotics had been delivered up per the routine. Upon entering the shoulder there was about 5-10 cc of purulent fluid that was collected and sent to the lab for pathologic investigation. This was sent for cultures as well. At the end of the procedure a flat Keenan Light drain was placed into the shoulder. This was secured with a 3 0 Prolene stitch. The drain was placed through the anterior portal. Sterile compressive dressings were applied. The posterior portal was closed with a 3-0 simple Prolene stitch. Surgical sling was applied after the dressings had been placed. Patient returned to the recovery room in stable condition. Implants None Estimated Blood Loss 0 Drains Yes Packing No Pathology yes Complications No immediate complications Condition stable Disposition PACU
[2021-07-31] MEDS: fentaNYL CITRATE INJ (*CRX) 100 MCG/2 ML VIAL 25 MCG IV PUSH (16:20)
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
--- NOTE | 2021-07-31 16:32 | SUR.PHASEI ---
1627-UNABLE TO DOCUMENT IN MAR R/T SURGEON IMPROPERLY ADDRESSING ANESTHESIA PACU ORDERS-FENTANYL 25MCG GIVEN IVP AT THIS TIME.
[2021-07-31 17:03] LABS: Glucose Point of Care 159 mg/dl (65-105)
--- NOTE | 2021-07-31 17:03 | SUR.PHASEI ---
1651-FENTANYL 25MCG IVP. 1703-FENTANYL 25MCG IVP.
--- NOTE | 2021-07-31 17:35 | PC.NURSE ---
Returned from OR via bed. Voiding without difficulty.
[2021-07-31] MEDS: AMPICILLIN 2 GM/NS 100 ML 2 GM/100 ML BAG IVPB ×2 (18:01→23:58)
[2021-07-31 18:05] LABS: Glucose Point of Care 168 mg/dl (65-105)
[2021-07-31] MEDS: DOCUSATE SODIUM 100 MG CAPSULE PO (18:21)
[2021-07-31 20:11] LABS: Glucose Point of Care 326 mg/dl (65-105)
[2021-07-31] MEDS: INSULIN GLARGINE (*BKC) 100 UNITS/ML 15 UNITS SUB-Q (20:56)
[2021-08-01] MEDS: HYDROcodone/acetaminophen (*CRX) 5-325 MG TABLET 1 TAB PO (00:01)
[2021-08-01] MEDS: AMPICILLIN 2 GM/NS 100 ML 2 GM/100 ML BAG IVPB ×4 (05:39→23:30)
[2021-08-01 05:41] VITALS: BP 141/74; PULSE 81; RESP 16; TEMP 36.6; O2SAT 98
[2021-08-01 05:49] LABS: Basophils Percent Auto 0.3 % (0.2-1.2); Eosinophils Absolute Auto 0.1 K/mm3 (0-0.3); Eosinophils Percent Auto 0.6 % (0-4.4); Hematocrit 33.5 % (42.0-52.0); Hemoglobin 11.2 g/dL (14.0-18.0); Immature Granulocyte Absolute 0.07 K/mm3 (0.00-0.031); Immature Granulocyte Percent A 0.6 % (0-0.5); Lymphocytes Absolute Auto 1.65 K/mm3 (0.9-3.2); Lymphocytes Percent Auto 13.4 % (18.3-44.2); Mean Corpuscular HGB Conc 33.4 g/dl (32-36); Mean Corpuscular Hemoglobin 28.4 pg (26-34); Mean Platelet Volume 10.7 fl (7.4-10.4); Monocytes Absolute Auto 1.5 K/mm3 (0.1-0.6); Monocytes Percent Auto 12.1 % (2.6-8.5); Platelet Count Result 290 k/mm3 (150-375); Red Blood Count 3.94 M/mm3 (4.6-6.20); Red Cell Distribution Width 13.3 % (11.5-14.5); White Blood Count 12.3 K/mm3 (4.5-10.0)
[2021-08-01 06:06] LABS: Anion Gap 4 mmol/L (8-16); Blood Urea Nitrogen 10 mg/dL (9-20); Calcium 8.3 mg/dL (8.4-10.2); Carbon Dioxide 29 mmol/L (22-30); Chloride 97 mmol/L (98-107); Estimated CRCL calculation 160 ml/min; Estimated Glomerular Filt Rate > 60; Glucose 286 mg/dL (65-110); Magnesium 1.9 mg/dL (1.6-2.3); Potassium 4.4 mmol/L (3.4-5.0); Sodium 130 mmol/L (137-145)
[2021-08-01 07:41] LABS: Glucose Point of Care 216 mg/dl (65-105)
[2021-08-01] MEDS: DOCUSATE SODIUM 100 MG CAPSULE PO (07:41)
[2021-08-01] MEDS: INSULIN ASPART (*BKC) 100 UNITS/ML SUB-Q ×3 (07:41→16:32)
[2021-08-01] MEDS: CELECOXIB 200 MG CAPSULE PO (07:41)
[2021-08-01 08:17] VITALS: BP 134/71; PULSE 86; RESP 16; TEMP 36.8; O2SAT 99
[2021-08-01 08:44] LABS: CRP 24.2 mg/dL (<1.0)
[2021-08-01] MEDS: ENOXAPARIN 40 MG/0.4 ML SYRINGE SUB-Q (10:06)
[2021-08-01] MEDS: SILVERGEL (ELTA) 45 ML 1 APPLIC TOPICAL (11:07)
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
[2021-08-01 11:43] LABS: Glucose Point of Care 302 mg/dl (65-105)
--- NOTE | 2021-08-01 11:51 | PM.PNORT ---
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 issues regarding full thickness cuff tear in the face of infection. will need to defer definitive rx until shoulder is completely cleared of infection. Cont supportive rx will d/c drain tomorrow if drainage diminishes approp. cont OT- spoke with therapist this am sling is prn for comfort Subjective Subjective Date/Time Seen: 08/01/21 11:51 Exam Extrem: Other: Left Shoulder NV intact distally dressing C/D/I Drain with a few cc's now. Serosang. drain total last 24 hours 38cc Moves shoulder with less pain FE to 30 Abd 25 ER 15 IR x body moves arm to manipulate for ADLs without much visible pain Cultures show Group B strep. ID has changed to Ampicillin anticupating 4 weeks IV Objective Data Vital Signs Vital Signs: Vital Signs - 24 hr 07/31/21 13:36 07/31/21 16:02 07/31/21 16:15 Temperature 37.1 C 36.2 C L Pulse Rate 76 88 83 Respiratory Rate 14 22 H 16 Blood Pressure 132/81 167/98 H 172/102 H Pulse Oximetry 100 100 100 07/31/21 16:30 07/31/21 16:45 07/31/21 17:00 Temperature Pulse Rate 75 77 75 Respiratory Rate 12 11 L 12 Blood Pressure 190/99 H 173/93 H 157/97 H Pulse Oximetry 100 98 96 07/31/21 17:15 07/31/21 17:35 07/31/21 18:05 Temperature 36.7 C Pulse Rate 83 82 Respiratory Rate 12 16 18 Blood Pressure 162/90 H 176/87 H Pulse Oximetry 97 99 98 07/31/21 18:07 07/31/21 18:36 07/31/21 19:53 Temperature 37.1 C 36.6 C Pulse Rate 98 87 86 Respiratory Rate 18 18 18 Blood Pressure 180/86 H 170/86 H Pulse Oximetry 98 98 98 07/31/21 19:58 07/31/21 23:57 08/01/21 05:41 Temperature 36.6 C 36.8 C 36.6 C Pulse Rate 92 87 81 Respiratory Rate 18 17 16 Blood Pressure 156/72 H 151/81 H 141/74 H Pulse Oximetry 99 99 98 08/01/21 08:17 Temperature 36.8 C Pulse Rate 86 Respiratory Rate 16 Blood Pressure 134/71 Pulse Oximetry 99 Intake/Output Intake/Output: Intake & Output 07/29/21 07/30/21 07/31/21 08/01/21 23:59 23:59 23:59 23:59 Intake Total 1350 2180 1720 1110 Output Total 20 18 Balance 1350 2180 1700 1092 Meds/Results Medications: Active Medications Generic Name Dose Route Start Last Admin Trade Name Freq PRN Reason Stop Dose Admin Acetaminophen 650 mg 07/29/21 16:32 Acetaminophen 325 Mg Tablet PO Q4H PRN Mild Pain (1-3) or Fever Hydrocodone Bitart/Acetaminophen 1 tab 07/31/21 14:43 08/01/21 00:01 Hydrocodone/Acetaminophen (*Crx) 5-325 Mg Tablet PO 1 tab Q4H PRN Administration Moderate Pain (4-6) Celecoxib 200 mg 08/01/21 08:00 08/01/21 07:41 Celecoxib 200 Mg Capsule PO 200 mg DAILY@0800 [facility] Administration Dextrose 12.5 gm 07/29/21 22:56 Dextrose 50% 25 Gm/50 Ml Syringe IV PUSH PRN PRN Hypoglycemia Protocol Docusate Sodium 100 mg 07/31/21 17:00 08/01/21 07:41 Docusate Sodium 100 Mg Capsule PO 100 mg BID [facility] Administration Enoxaparin Sodium 40 mg 07/30/21 09:00 08/01/21 10:06 Enoxaparin 40 Mg/0.4 Ml Syringe SUB-Q 40 mg DAILY [facility] Administration Glucagon 1 mg 07/29/21 22:56 Glucagon For Inj 1 Mg Vial IM PRN PRN Hypoglycemia Protocol Glucose 15 gm 07/29/21 22:56 Glucose Oral Gel 15 Gm Of Glucse In 37.5 Gm Tube PO PRN PRN Hypoglycemia Protocol Hydralazine HCl 10 mg 07/31/21 18:03 Hydralazine Hcl 20 Mg/Ml Vial IV PUSH Q4H PRN Blood Pressure - High Dextrose 1,000 mls @ 100 mls/hr 07/29/21 22:56 Dextrose 5% 1,000 Ml IVPB PRN PRN Hypoglycemia Protocol Ampicillin Sodium 2 gm in 100 mls @ 200 mls/hr 07/31/21 18:00 08/01/21 11:36 Ampicillin 2 Gm/Ns 100 Ml IVPB Infused Q6HR [facility] Infusion Insulin Aspart 2 - 5 units 07/30/21 08:00 08/01/21 11:44 Insulin Aspart (*Bk) 100 Uni
[2021-08-01 12:17] VITALS: BP 122/67; PULSE 82; RESP 16; TEMP 36.7; O2SAT 100
--- NOTE | 2021-08-01 15:46 | PM.PNGS ---
Progress Note: A&P Assessment and Plan (1) Left hallux osteomyelitis: Code(s): M86.9 - Osteomyelitis, unspecified Status: Acute Assessment and Plan: Left first toe with findings on x-ray concerning for osteomyelitis. No ulceration or significant open wound. We have had multiple conversations with the patient regarding treatment options, and he would like to avoid toe amputation if at all possible. Continue to treat with IV antibiotics per ID. Continue local wound care with silver gel dressing changes. I will add Lac-Hydrin for his dry skin on his feet. WBC is trending down and he is afebrile. Will continue to monitor how he responds to current treatment over the next few days. (2) Diabetic ulcer of right foot: Qualifiers: Diabetes mellitus type: type 2 Diabetic foot ulcer location: midfoot Non-pressure ulcer stage: unspecified non-pressure ulcer stage Qualified Code(s): E11.621 - Type 2 diabetes mellitus with foot ulcer; L97.419 - Non-pressure chronic ulcer of right heel and midfoot with unspecified severity Code(s): E11.621 - Type 2 diabetes mellitus with foot ulcer; L97.519 - Non-pressure chronic ulcer of other part of right foot with unspecified severity Status: Acute Assessment and Plan: Plantar wound on the right foot remains stable. Continue local wound care with silver gel dressing changes for now. If he continues to improve and eventually able to be discharged, then he will need to establish care and follow with a Hotel Security Officer as well as a primary care provider. (3) Septicemia: Code(s): A41.9 - Sepsis, unspecified organism Status: Acute Assessment and Plan: Secondary to above. Continue broad-spectrum IV antibiotics. Preliminary blood cx show growth of group B strep. L shoulder aspiration cx with growth of group B strep. See plan above regarding diabetic foot ulcer. (4) Effusion of left shoulder joint: Code(s): M25.412 - Effusion, left shoulder Status: Acute Assessment and Plan: Septic left shoulder. Ortho following. Underwent left shoulder arthroscopy and irrigation and debridement with intra-operative cultures, and placement of intra-articular drain yesterday. (5) Type 2 diabetes mellitus with hyperglycemia: Qualifiers: Diabetes mellitus shelter insulin use: without terminal worker use Qualified Code(s): E11.65 - Type 2 diabetes mellitus with hyperglycemia Code(s): E11.65 - Type 2 diabetes mellitus with hyperglycemia Status: Acute Assessment and Plan: Glucose improving but still in the 200-300's. Hgb A1C 10.4. Management per Hospitalist. Additional Plan I have discussed the plan of care with Dr. Hanley. Subjective Subjective Date/Time Seen: 08/01/21 14:46 Patient reports: feels better, pain is less (in both the left shoulder and his feet) and afebrile Interval history: Pt seen and examined. Yesterday he had a left shoulder arthroscopy and irrigation and debridement with intra-operative cultures, and placement of intra-articular drain. He reports his pain in the left shoulder and his feet has improved today. He has no new complaints. He is working on discharge planning with care coordination for IV antibiotic course as recommended by ID. Review of Systems Review of Systems: All systems reviewed & are unremarkable except as noted in HPI and below Constitutional: Constitutional: Denies fever(s) Exam Const: General: no acute distress and alert Orientation/consciousness: patient oriented x3 Skin: General skin exam: dry skin and other (Left shoulder dressing clean and dry, drain with serosanguineous drainage) Neuro: General: moves all extremities and no focal motor deficits Extrem: General: capillary refill normal Other: Right plantar foot wound over 2nd to 3rd metatarsal measuring about 1 cm with a thick callus circumferentially around wound. No crepitus. No purulent drainage noted. Exposed wo
[2021-08-01 16:17] VITALS: BP 122/78; PULSE 74; RESP 16; TEMP 36.9; O2SAT 100
[2021-08-01 16:33] LABS: Glucose Point of Care 379 mg/dl (65-105)
[2021-08-01] MEDS: EUCERIN CREAM 120 GM JAR 1 APPLIC TOPICAL (16:33)
[2021-08-01] MEDS: LACTIC ACID 12% LOTION 225 BTL 1 APPLIC TOPICAL (16:33)
[2021-08-01 20:00] VITALS: BP 131/82; PULSE 76; RESP 21; TEMP 36.6; O2SAT 100
[2021-08-01] MEDS: INSULIN GLARGINE (*BKC) 100 UNITS/ML 20 UNITS SUB-Q (20:50)
[2021-08-01 20:55] LABS: Glucose Point of Care 308 mg/dl (65-105)
[2021-08-02] VITALS: BP 156/88; PULSE 78; RESP 21; TEMP 36.4; O2SAT 100
[2021-08-02 04:00] VITALS: BP 131/76; PULSE 75; RESP 21; TEMP 36.2; O2SAT 100
[2021-08-02] MEDS: AMPICILLIN 2 GM/NS 100 ML 2 GM/100 ML BAG IVPB ×4 (05:04→23:49)
[2021-08-02 05:13] LABS: Basophils Absolute Auto 0.1 K/mm3 (0.0-0.1); Basophils Percent Auto 0.4 % (0.2-1.2); Eosinophils Absolute Auto 0.1 K/mm3 (0-0.3); Eosinophils Percent Auto 0.8 % (0-4.4); Hematocrit 32.9 % (42.0-52.0); Immature Granulocyte Percent A 0.8 % (0-0.5); Lymphocytes Absolute Auto 2.04 K/mm3 (0.9-3.2); Mean Corpuscular HGB Conc 33.4 g/dl (32-36); Mean Corpuscular Hemoglobin 27.9 pg (26-34); Mean Corpuscular Volume 83.5 fl (80-100); Mean Platelet Volume 10.3 fl (7.4-10.4); Monocytes Absolute Auto 1.5 K/mm3 (0.1-0.6); Monocytes Percent Auto 12.2 % (2.6-8.5); Neutrophils Absolute Auto 8.2 K/mm3 (1.3-6.7); Neutrophils Percent Auto 68.8 % (45.5-73.1); Platelet Count Result 324 k/mm3 (150-375); Red Blood Count 3.94 M/mm3 (4.6-6.20); Red Cell Distribution Width 13.1 % (11.5-14.5)
[2021-08-02 05:38] LABS: Alanine Aminotransferase 84 U/L (4-50); Alkaline Phosphatase 161 U/L (38-126); Anion Gap 5 mmol/L (8-16); Aspartate Amino Transferase 66 U/L (17-59); Bilirubin,Total 0.6 mg/dL (0.2-1.3); Blood Urea Nitrogen 10 mg/dL (9-20); Calcium 8.5 mg/dL (8.4-10.2); Carbon Dioxide 28 mmol/L (22-30); Chloride 98 mmol/L (98-107); Estimated CRCL calculation 160 ml/min; Estimated Glomerular Filt Rate > 60; Glucose 233 mg/dL (65-110); Magnesium 1.8 mg/dL (1.6-2.3); Potassium 4.3 mmol/L (3.4-5.0); Sodium 131 mmol/L (137-145)
[2021-08-02 07:20] LABS: Hepatitis B Surface Antigen Negative (Negative)
[2021-08-02 07:25] LABS: HAV RESULT Negative (Negative); Hepatitis B Core IgM Result Negative (Negative)
[2021-08-02 07:37] LABS: Hepatitis C Virus Antibody Negative (Negative)
[2021-08-02 08:01] LABS: Glucose Point of Care 264 mg/dl (65-105)
[2021-08-02] MEDS: INSULIN ASPART (*BKC) 100 UNITS/ML SUB-Q ×5 (08:09→17:04)
[2021-08-02] MEDS: ENOXAPARIN 40 MG/0.4 ML SYRINGE SUB-Q (08:14)
[2021-08-02] MEDS: HYDROcodone/acetaminophen (*CRX) 5-325 MG TABLET 1 TAB PO ×3 (08:14→23:49)
[2021-08-02] MEDS: EUCERIN CREAM 120 GM JAR 1 APPLIC TOPICAL ×2 (08:15→08:16)
[2021-08-02] MEDS: CELECOXIB 200 MG CAPSULE PO (08:15)
[2021-08-02] MEDS: LACTIC ACID 12% LOTION 225 BTL 1 APPLIC TOPICAL (08:16)
[2021-08-02] MEDS: SILVERGEL (ELTA) 45 ML 1 APPLIC TOPICAL (08:17)
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
[2021-08-02 11:37] LABS: Glucose Point of Care 314 mg/dl (65-105)
[2021-08-02 14:55] VITALS: BP 113/67; PULSE 66; RESP 18; TEMP 36.1; O2SAT 99
[2021-08-02 16:24] LABS: Glucose Point of Care 211 mg/dl (65-105)
--- NOTE | 2021-08-02 17:51 | PM.PNORT ---
Progress Note: A&P Additional Plan Clincally improving. Drain removed encouraged passive and active ROM will follow clinically response to cont IV ATBs PIC line planned for AM. Subjective Subjective Date/Time Seen: 08/02/21 17:51 Exam Extrem: Other: Left Shoulder NV intact About 15 cc out all day. Pain is diminished but still moderate WBC down No fever, no malaise Nv intact distallly encouraged ROM. mod pain with gentle ROM in bed. Sling for comfort but encouraged ROM of shoulder passive and active. Drain easily d/teresita min serous drainage from renee site. Objective Data Vital Signs Vital Signs: Vital Signs - 24 hr 08/01/21 20:00 08/02/21 00:00 08/02/21 04:00 Temperature 36.6 C 36.4 C 36.2 C L Pulse Rate 76 78 75 Respiratory Rate 21 H 21 H 21 H Blood Pressure 131/82 156/88 H 131/76 Pulse Oximetry 100 100 100 08/02/21 14:55 Temperature 36.1 C L Pulse Rate 66 Respiratory Rate 18 Blood Pressure 113/67 Pulse Oximetry 99 Intake/Output Intake/Output: Intake & Output 07/30/21 07/31/21 08/01/21 08/02/21 23:59 23:59 23:59 23:59 Intake Total 2180 1720 1690 1080 Output Total 20 18 15 Balance 2180 1700 1672 1065 Meds/Results Medications: Active Medications Generic Name Dose Route Start Last Admin Trade Name Freq PRN Reason Stop Dose Admin Acetaminophen 650 mg 07/29/21 16:32 Acetaminophen 325 Mg Tablet PO Q4H PRN Mild Pain (1-3) or Fever Hydrocodone Bitart/Acetaminophen 1 tab 07/31/21 14:43 08/02/21 08:14 Hydrocodone/Acetaminophen (*Crx) 5-325 Mg Tablet PO 1 tab Q4H PRN Administration Moderate Pain (4-6) Celecoxib 200 mg 08/01/21 08:00 08/02/21 08:15 Celecoxib 200 Mg Capsule PO 200 mg DAILY@0800 [facility] Administration Dextrose 12.5 gm 07/29/21 22:56 Dextrose 50% 25 Gm/50 Ml Syringe IV PUSH PRN PRN Hypoglycemia Protocol Docusate Sodium 100 mg 07/31/21 17:00 08/02/21 17:05 Docusate Sodium 100 Mg Capsule PO Not Given BID [facility] Enoxaparin Sodium 40 mg 07/30/21 09:00 08/02/21 08:14 Enoxaparin 40 Mg/0.4 Ml Syringe SUB-Q 40 mg DAILY [facility] Administration Glucagon 1 mg 07/29/21 22:56 Glucagon For Inj 1 Mg Vial IM PRN PRN Hypoglycemia Protocol Glucose 15 gm 07/29/21 22:56 Glucose Oral Gel 15 Gm Of Glucse In 37.5 Gm Tube PO PRN PRN Hypoglycemia Protocol Hydralazine HCl 10 mg 07/31/21 18:03 Hydralazine Hcl 20 Mg/Ml Vial IV PUSH Q4H PRN Blood Pressure - High Dextrose 1,000 mls @ 100 mls/hr 07/29/21 22:56 Dextrose 5% 1,000 Ml IVPB PRN PRN Hypoglycemia Protocol Ampicillin Sodium 2 gm in 100 mls @ 200 mls/hr 07/31/21 18:00 08/02/21 17:05 Ampicillin 2 Gm/Ns 100 Ml IVPB 200 mls/hr Q6HR [facility] Administration Insulin Aspart 4 units 08/02/21 12:00 08/02/21 17:04 Insulin Aspart (*Bkc) 100 Units/Ml SUB-Q 4 units TIDWM [facility]EL[facility] Administration Insulin Aspart 4 - 8 units 08/02/21 12:00 08/02/21 17:04 Insulin Aspart (*Bkc) 100 Units/Ml SUB-Q 4 units TIDWM [facility] Administration Protocol Insulin Glargine 30 units 08/02/21 21:00 Insulin Glargine (*Bkc) 100 Units/Ml SUB-Q HS [facility] Lactic Acid 1 applic 08/01/21 16:05 08/02/21 08:16 Lactic Acid 12% Lotion 225 Btl TOPICAL 1 applic QAM [facility] Administration Lidocaine HCl 5 ml 08/03/21 06:00 Lidocaine Hcl 1% Pf Inj 5 Ml Vial INFILTRATE 08/03/21 06:01 ONCE ONE Magnesium Hydroxide 30 ml 07/31/21 14:31 Magnesium Hydroxide Susp 30 Ml Udc PO BID PRN Constipation Morphine Sulfate 3 mg 07/31/21 14:36 Morphine Sulfate (*Crx) 4 Mg/Ml Inj IV PUSH Q3H PRN Pain Rated 7-10 Multi-Ingred Cream/Lotion/Oil/Oint 1 applic 08/02/21 09:00 08/02/21 08:15 Eucerin Cream 120 Gm Jar TOPICAL 1 applic DAILY [facility] Administration Multi-Ingred Cream/Lotion/Oil/Oint 1 applic 08/01/21 16:05 08/02/21 08:16 Eucerin Cream 120 Gm Jar TOPICA
[2021-08-02 19:51] VITALS: BP 122/77; PULSE 70; RESP 17; TEMP 36.7; O2SAT 100
[2021-08-02 19:56] LABS: Glucose Point of Care 191 mg/dl (65-105)
[2021-08-02 20:06] VITALS: O2SAT 99
[2021-08-02] MEDS: INSULIN GLARGINE (*BKC) 100 UNITS/ML 30 UNITS SUB-Q (20:17)
[2021-08-03 05:35] VITALS: BP 136/70; PULSE 76; RESP 14; TEMP 36.6; O2SAT 100
[2021-08-03] MEDS: AMPICILLIN 2 GM/NS 100 ML 2 GM/100 ML BAG IVPB ×3 (05:36→16:53)
[2021-08-03 06:23] LABS: Basophils Absolute Auto 0.1 K/mm3 (0.0-0.1); Basophils Percent Auto 0.6 % (0.2-1.2); Eosinophils Absolute Auto 0.1 K/mm3 (0-0.3); Eosinophils Percent Auto 0.4 % (0-4.4); Hematocrit 33.7 % (42.0-52.0); Hemoglobin 11.4 g/dL (14.0-18.0); Immature Granulocyte Absolute 0.13 K/mm3 (0.00-0.031); Immature Granulocyte Percent A 0.9 % (0-0.5); Lymphocytes Absolute Auto 2.33 K/mm3 (0.9-3.2); Lymphocytes Percent Auto 16.6 % (18.3-44.2); Mean Corpuscular HGB Conc 33.8 g/dl (32-36); Mean Corpuscular Hemoglobin 28.1 pg (26-34); Mean Platelet Volume 10.7 fl (7.4-10.4); Monocytes Absolute Auto 1.7 K/mm3 (0.1-0.6); Monocytes Percent Auto 12.3 % (2.6-8.5); Neutrophils Absolute Auto 9.7 K/mm3 (1.3-6.7); Neutrophils Percent Auto 69.2 % (45.5-73.1); Platelet Count Result 408 k/mm3 (150-375); Red Blood Count 4.06 M/mm3 (4.6-6.20); Red Cell Distribution Width 13.2 % (11.5-14.5)
[2021-08-03 06:37] LABS: Alanine Aminotransferase 109 U/L (4-50); Albumin Level 2.8 g/dL (3.5-5.1); Alkaline Phosphatase 183 U/L (38-126); Anion Gap 7 mmol/L (8-16); Aspartate Amino Transferase 81 U/L (17-59); Bilirubin,Total 0.4 mg/dL (0.2-1.3); Blood Urea Nitrogen 10 mg/dL (9-20); Calcium 8.8 mg/dL (8.4-10.2); Carbon Dioxide 28 mmol/L (22-30); Chloride 100 mmol/L (98-107); Estimated CRCL calculation 160 ml/min; Estimated Glomerular Filt Rate > 60; Glucose 70 mg/dL (65-110); Magnesium 1.9 mg/dL (1.6-2.3); Potassium 4.3 mmol/L (3.4-5.0); Sodium 135 mmol/L (137-145)
[2021-08-03] MEDS: ENOXAPARIN 40 MG/0.4 ML SYRINGE SUB-Q (08:01)
[2021-08-03] MEDS: CELECOXIB 200 MG CAPSULE PO (08:01)
[2021-08-03] MEDS: INSULIN ASPART (*BKC) 100 UNITS/ML SUB-Q ×3 (08:03→16:51)
[2021-08-03 08:06] LABS: Glucose Point of Care 73 mg/dl (65-105)
--- NOTE | 2021-08-03 08:19 | PM.PNORT ---
Progress Note: A&P Additional Plan Continue IV antibiotics as recommended by Infectious Disease. I should see the patient in my office within 1 week of discharge. continue OT range of motion and gentle strengthening. Subjective Subjective Date/Time Seen: 08/03/21 08:19 Post Op day: 3 Interval history: His left shoulder is less tender today. He is to receive a PICC line this morning. He is anticipating discharge today. Exam Extrem: Other: Left shoulder still minimally warm to palpation. Gentle motion was much less tender today. Neurovascularly intact distally with good capillary refill. His dressing is clean and dry. Minimal drainage from the anterior portal and drain site with just serosanguineous drainage. Objective Data Vital Signs Vital Signs: Vital Signs - 24 hr 08/02/21 14:55 08/02/21 19:51 08/02/21 20:06 Temperature 36.1 C L 36.7 C Pulse Rate 66 70 Respiratory Rate 18 17 Blood Pressure 113/67 122/77 Pulse Oximetry 99 100 99 08/03/21 05:35 Temperature 36.6 C Pulse Rate 76 Respiratory Rate 14 Blood Pressure 136/70 Pulse Oximetry 100 Intake/Output Intake/Output: Intake & Output 07/31/21 08/01/21 08/02/21 08/03/21 23:59 23:59 23:59 23:59 Intake Total 1720 1690 1540 350 Output Total 20 18 15 Balance 1700 1672 1525 350 Meds/Results Medications: Active Medications Generic Name Dose Route Start Last Admin Trade Name Freq PRN Reason Stop Dose Admin Acetaminophen 650 mg 07/29/21 16:32 Acetaminophen 325 Mg Tablet PO Q4H PRN Mild Pain (1-3) or Fever Hydrocodone Bitart/Acetaminophen 1 tab 07/31/21 14:43 08/02/21 23:49 Hydrocodone/Acetaminophen (*Crx) 5-325 Mg Tablet PO 1 tab Q4H PRN Administration Moderate Pain (4-6) Celecoxib 200 mg 08/01/21 08:00 08/03/21 08:01 Celecoxib 200 Mg Capsule PO 200 mg DAILY@0800 [facility] Administration Dextrose 12.5 gm 07/29/21 22:56 Dextrose 50% 25 Gm/50 Ml Syringe IV PUSH PRN PRN Hypoglycemia Protocol Docusate Sodium 100 mg 07/31/21 17:00 08/03/21 08:01 Docusate Sodium 100 Mg Capsule PO Not Given BID [facility] Enoxaparin Sodium 40 mg 07/30/21 09:00 08/03/21 08:01 Enoxaparin 40 Mg/0.4 Ml Syringe SUB-Q 40 mg DAILY [facility] Administration Gabapentin 100 mg 08/03/21 09:00 Gabapentin 100 Mg Capsule PO TID [facility] Glucagon 1 mg 07/29/21 22:56 Glucagon For Inj 1 Mg Vial IM PRN PRN Hypoglycemia Protocol Glucose 15 gm 07/29/21 22:56 Glucose Oral Gel 15 Gm Of Glucse In 37.5 Gm Tube PO PRN PRN Hypoglycemia Protocol Hydralazine HCl 10 mg 07/31/21 18:03 Hydralazine Hcl 20 Mg/Ml Vial IV PUSH Q4H PRN Blood Pressure - High Dextrose 1,000 mls @ 100 mls/hr 07/29/21 22:56 Dextrose 5% 1,000 Ml IVPB PRN PRN Hypoglycemia Protocol Ampicillin Sodium 2 gm in 100 mls @ 200 mls/hr 07/31/21 18:00 08/03/21 06:06 Ampicillin 2 Gm/Ns 100 Ml IVPB Infused Q6HR [facility] Infusion Insulin Aspart 4 units 08/02/21 12:00 08/03/21 08:03 Insulin Aspart (*Bkc) 100 Units/Ml SUB-Q 4 units TIDWM [facility] Administration Insulin Aspart 4 - 8 units 08/02/21 12:00 08/03/21 08:03 Insulin Aspart (*Bkc) 100 Units/Ml SUB-Q Not Given TIDWM [facility] Protocol Insulin Glargine 30 units 08/02/21 21:00 08/02/21 20:17 Insulin Glargine (*Bkc) 100 Units/Ml SUB-Q 30 units HS [facility] Administration Lactic Acid 1 applic 08/01/21 16:05 08/02/21 08:16 Lactic Acid 12% Lotion 225 Btl TOPICAL 1 applic QAM [facility] Administration Magnesium Hydroxide 30 ml 07/31/21 14:31 Magnesium Hydroxide Susp 30 Ml Udc PO BID PRN Constipation Morphine Sulfate 3 mg 07/31/21 14:36 Morphine Sulfate (*Crx) 4 Mg/Ml Inj IV PUSH Q3H PRN Pain Rated 7-10 Multi-Ingred Cream/Lotion/Oil/Oint 1 applic 08/02/21 09:00 08/02/21 08:15 Eucerin Cream 120 Gm Jar TOPICAL 1 applic DAILY [facility] Administ
[2021-08-03] MEDS: LIDOCAINE HCL 1% PF INJ 5 ML VIAL INFILTRATE (08:50)
[2021-08-03 09:29] LABS: CRP 13.3 mg/dL (<1.0)
[2021-08-03] MEDS: GABAPENTIN 100 MG CAPSULE PO ×2 (10:27→16:49)
[2021-08-03] MEDS: EUCERIN CREAM 120 GM JAR 1 APPLIC TOPICAL (10:28)
[2021-08-03] MEDS: SILVERGEL (ELTA) 45 ML 1 APPLIC TOPICAL (10:28)
[2021-08-03] MEDS: LACTIC ACID 12% LOTION 225 BTL 1 APPLIC TOPICAL (10:28)
[2021-08-03 11:47] LABS: Glucose Point of Care 157 mg/dl (65-105)
[2021-08-03] MEDS: CENTRAL LINE FLUSH 10 ML IV PUSH ×2 (12:13→20:38)
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
[2021-08-03] MEDS: glipiZIDE 5 MG TABLET PO (14:33)
[2021-08-03] MEDS: SODIUM CHLORIDE 0.9% IV 1,000 ML 75 ML IV CONT (14:33)
[2021-08-03 15:06] VITALS: BP 158/81; PULSE 71; RESP 16; TEMP 36.1; O2SAT 100
[2021-08-03 16:35] LABS: Glucose Point of Care 224 mg/dl (65-105)
[2021-08-03] MEDS: metFORMIN HCL 500 MG TABLET PO (16:49)
[2021-08-03] MEDS: INSULIN GLARGINE (*BKC) 100 UNITS/ML 30 UNITS SUB-Q (20:35)
[2021-08-03 20:37] VITALS: BP 158/76; PULSE 76; RESP 18; TEMP 36.8; O2SAT 100
[2021-08-03 20:52] LABS: Glucose Point of Care 203 mg/dl (65-105)
[2021-08-03] MEDS: HYDROcodone/acetaminophen (*CRX) 5-325 MG TABLET 1 TAB PO (20:54)
[2021-08-04] MEDS: AMPICILLIN 2 GM/NS 100 ML 2 GM/100 ML BAG IVPB ×3 (00:14→11:16)
[2021-08-04] MEDS: HYDROcodone/acetaminophen (*CRX) 5-325 MG TABLET 1 TAB PO (04:57)
[2021-08-04] MEDS: SODIUM CHLORIDE 0.9% IV 1,000 ML 75 ML IV CONT (04:58)
[2021-08-04] MEDS: CENTRAL LINE FLUSH 10 ML IV PUSH (05:00)
[2021-08-04] MEDS: glipiZIDE 5 MG TABLET PO (05:01)
[2021-08-04 05:13] LABS: Basophils Absolute Auto 0.1 K/mm3 (0.0-0.1); Basophils Percent Auto 0.6 % (0.2-1.2); Eosinophils Absolute Auto 0.1 K/mm3 (0-0.3); Eosinophils Percent Auto 0.9 % (0-4.4); Hematocrit 33.3 % (42.0-52.0); Hemoglobin 10.9 g/dL (14.0-18.0); Immature Granulocyte Absolute 0.16 K/mm3 (0.00-0.031); Immature Granulocyte Percent A 1.4 % (0-0.5); Lymphocytes Absolute Auto 2.02 K/mm3 (0.9-3.2); Lymphocytes Percent Auto 17.2 % (18.3-44.2); Mean Corpuscular HGB Conc 32.7 g/dl (32-36); Mean Corpuscular Hemoglobin 27.9 pg (26-34); Mean Corpuscular Volume 85.2 fl (80-100); Mean Platelet Volume 9.5 fl (7.4-10.4); Monocytes Absolute Auto 1.4 K/mm3 (0.1-0.6); Monocytes Percent Auto 12.3 % (2.6-8.5); Neutrophils Percent Auto 67.6 % (45.5-73.1); Platelet Count Result 396 k/mm3 (150-375); Red Blood Count 3.91 M/mm3 (4.6-6.20); Red Cell Distribution Width 13.5 % (11.5-14.5); White Blood Count 11.7 K/mm3 (4.5-10.0)
[2021-08-04 05:25] LABS: Alanine Aminotransferase 110 U/L (4-50); Alkaline Phosphatase 186 U/L (38-126); Anion Gap 3 mmol/L (8-16); Aspartate Amino Transferase 85 U/L (17-59); Bilirubin,Total 0.4 mg/dL (0.2-1.3); Blood Urea Nitrogen 10 mg/dL (9-20); Calcium 8.5 mg/dL (8.4-10.2); Carbon Dioxide 29 mmol/L (22-30); Chloride 102 mmol/L (98-107); Estimated CRCL calculation 160 ml/min; Estimated Glomerular Filt Rate > 60; Glucose 98 mg/dL (65-110); Magnesium 1.9 mg/dL (1.6-2.3); Sodium 134 mmol/L (137-145)
[2021-08-04 05:26] LABS: Lactic Acid Reflex 0.8 mmol/L (0.7-2.1)
[2021-08-04 05:33] VITALS: BP 150/80; PULSE 76; RESP 17; TEMP 36.3; O2SAT 100
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
[2021-08-04 07:46] LABS: Lactate Dehydrogenase 388 U/L (313-618)
[2021-08-04 07:54] LABS: Glucose Point of Care 92 mg/dl (65-105)
--- NOTE | 2021-08-04 07:54 | PM.PNORT ---
Progress Note: A&P Additional Plan POD# 4 septic arthritis left shoulder s/p I+D OK for D/C to SNF for IV ATBs F/U with [facility] within 10 days of d/c OT/PT to see for continued passive and active ROM adv as tolerated. Subjective Subjective Date/Time Seen: 08/04/21 07:54 Post Op day: 4 Principal diagnosis: Left Shoulder septic arthritis Exam Extrem: Other: Left Shoulder Dressing c/d/i FE with assist to 60 (much Improved) ER to 40 using more naturally Min warmth no redness swelling decreasing NV intact Objective Data Vital Signs Vital Signs: Vital Signs - 24 hr 08/03/21 15:06 08/03/21 20:37 08/04/21 05:33 Temperature 36.1 C L 36.8 C 36.3 C L Pulse Rate 71 76 76 Respiratory Rate 16 18 17 Blood Pressure 158/81 H 158/76 H 150/80 H Pulse Oximetry 100 100 100 Intake/Output Intake/Output: Intake & Output 08/01/21 08/02/21 08/03/21 08/04/21 23:59 23:59 23:59 23:59 Intake Total 1690 1540 1750 1400 Output Total 18 15 900 Balance 1672 1525 1750 500 Meds/Results Medications: Active Medications Generic Name Dose Route Start Last Admin Trade Name Freq PRN Reason Stop Dose Admin Acetaminophen 650 mg 07/29/21 16:32 Acetaminophen 325 Mg Tablet PO Q4H PRN Mild Pain (1-3) or Fever Hydrocodone Bitart/Acetaminophen 1 tab 07/31/21 14:43 08/04/21 04:57 Hydrocodone/Acetaminophen (*Crx) 5-325 Mg Tablet PO 1 tab Q4H PRN Administration Moderate Pain (4-6) Celecoxib 200 mg 08/01/21 08:00 08/03/21 08:01 Celecoxib 200 Mg Capsule PO 200 mg DAILY@0800 FELIPE Administration Dextrose 12.5 gm 07/29/21 22:56 Dextrose 50% 25 Gm/50 Ml Syringe IV PUSH PRN PRN Hypoglycemia Protocol Docusate Sodium 100 mg 07/31/21 17:00 08/03/21 16:50 Docusate Sodium 100 Mg Capsule PO Not Given BID [facility] Enoxaparin Sodium 40 mg 07/30/21 09:00 08/03/21 08:01 Enoxaparin 40 Mg/0.4 Ml Syringe SUB-Q 40 mg DAILY FELIPE Administration Gabapentin 100 mg 08/03/21 09:00 08/03/21 16:49 Gabapentin 100 Mg Capsule PO 100 mg TID FELIPE Administration Glipizide 2.5 mg 08/05/21 06:30 Glipizide 2.5 Mg Tablet PO DAILY@0630 FELIPE Glucagon 1 mg 07/29/21 22:56 Glucagon For Inj 1 Mg Vial IM PRN PRN Hypoglycemia Protocol Glucose 15 gm 07/29/21 22:56 Glucose Oral Gel 15 Gm Of Glucse In 37.5 Gm Tube PO PRN PRN Hypoglycemia Protocol Hydralazine HCl 10 mg 07/31/21 18:03 Hydralazine Hcl 20 Mg/Ml Vial IV PUSH Q4H PRN Blood Pressure - High Dextrose 1,000 mls @ 100 mls/hr 07/29/21 22:56 Dextrose 5% 1,000 Ml IVPB PRN PRN Hypoglycemia Protocol Ampicillin Sodium 2 gm in 100 mls @ 200 mls/hr 07/31/21 18:00 08/04/21 05:00 Ampicillin 2 Gm/Ns 100 Ml IVPB 200 mls/hr Q6HR FELIPE Administration Sodium Chloride 1,000 mls @ 75 mls/hr 08/03/21 13:40 08/04/21 04:58 Normal Saline Iv IV CONT 75 mls/hr .[id number] FELIPE Administration Insulin Aspart 4 units 08/02/21 12:00 08/03/21 16:51 Insulin Aspart (*Bkc) 100 Units/Ml SUB-Q 4 units TIDWM FELIPE Administration Insulin Aspart 4 - 8 units 08/02/21 12:00 08/03/21 16:51 Insulin Aspart (*Bkc) 100 Units/Ml SUB-Q 4 units TIDWM FELIPE Administration Protocol Insulin Glargine 30 units 08/02/21 21:00 08/03/21 20:35 Insulin Glargine (*Bkc) 100 Units/Ml SUB-Q 30 units HS FELIPE Administration Lactic Acid 1 applic 08/01/21 16:05 08/03/21 10:28 Lactic Acid 12% Lotion 225 Btl TOPICAL 1 applic QAM FELIPE Administration Lisinopril 10 mg 08/04/21 09:00 Lisinopril 10 Mg Tablet PO DAILY [facility] Magnesium Hydroxide 30 ml 07/31/21 14:31 Magnesium Hydroxide Susp 30 Ml Udc PO BID PRN Constipation Metformin HCl 500 mg 08/03/21 17:00 08/03/21 16:49 Metformin Hcl 500 Mg Tablet PO 500 mg BIDWM FELIPE Administration Morphine Sulfate 3 mg 07/31/21 14:36 Morphine Sulfate (*Crx) 4 Mg/Ml Inj IV PU
[2021-08-04] MEDS: metFORMIN HCL 500 MG TABLET PO (09:07)
[2021-08-04] MEDS: CELECOXIB 200 MG CAPSULE PO (09:07)
[2021-08-04] MEDS: ENOXAPARIN 40 MG/0.4 ML SYRINGE SUB-Q (09:07)
[2021-08-04] MEDS: GABAPENTIN 100 MG CAPSULE PO (09:08)
[2021-08-04] MEDS: lisinopriL 10 MG TABLET PO (09:08)
[2021-08-04] MEDS: LACTIC ACID 12% LOTION 225 BTL 1 APPLIC TOPICAL (09:11)
[2021-08-04] MEDS: SILVERGEL (ELTA) 45 ML 1 APPLIC TOPICAL (09:11)
[2021-08-04] MEDS: EUCERIN CREAM 120 GM JAR 1 APPLIC TOPICAL ×2 (09:13)
[2021-08-04 11:59] LABS: Glucose Point of Care 152 mg/dl (65-105)
== END 2021-08-04 12:16 | DRG 720 ==
LOC: ANHED 16:51 → ANH3MED 17:05
PROVIDERS: Physician Assistant; Specialist; Admitting Provider Internal Medicine; Emergency Provider Emergency Medicine; Visit Provider Nurse Practitioner
PROC: 0R9 Upper Joints, Drainage (ICD-10-PCS; CPT 29805; principal; 2021-07-31 14:00)
DX: A41.9 Sepsis, unspecified organism (principal); E11.69 Type 2 diabetes mellitus with other specified complication; M86.172 Other acute osteomyelitis, left ankle and foot; B95.1 Streptococcus, group B, as the cause of diseases classified elsewhere; M00.212 Other streptococcal arthritis, left shoulder; E11.65 Type 2 diabetes mellitus with hyperglycemia; E11.621 Type 2 diabetes mellitus with foot ulcer; L97.419 Non-pressure chronic ulcer of right heel and midfoot with unspecified severity; L97.519 Non-pressure chronic ulcer of other part of right foot with unspecified severity; E11.42 Type 2 diabetes mellitus with diabetic polyneuropathy; E87.1 Hypo-osmolality and hyponatremia; I10 Essential (primary) hypertension; W10.8XXA Fall (on) (from) other stairs and steps, initial encounter; F17.210 Nicotine dependence, cigarettes, uncomplicated
CPT/HCPCS: 20610; 36415; 36569; 73201; 73630; 76705; 77002; 80048; 80053; 80074; 80076; 82948; 83036; 83605; 83615; 83735; 84550; 85025; 85652; 86140; 86703; 87040; 87070; 87075; 87077; 87186; 87205; 89051; 89060; 96361; 96374; 97110; 97165; 99285; A4565; A9270; C1751; G0432; J0171; J0290; J0330; J0690; J0743; J1650; J1815; J2250; J2270; J2405; J2704; J3010; J3301; J3370; J7030; J7050; J7120; Q9967

== ENCOUNTER 2021-09-12 15:55 | Emergency (ER) | payer BC, SELFPAY ==
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
--- NOTE | 2021-09-12 15:58 | ECG_ITS ---
Measurements Intervals Ashley Rate: 79 P: 52 VA: 140 QRS: 50 QRSD: 89 T: 57 QT: 356 QTc: 410 Interpretive Statements SINUS RHYTHM ATRIAL PREMATURE COMPLEX BORDERLINE ECG Electronically Signed On 09-12-2021 16:18:35 MANAGER ENROLLMENT by Earl Gallagher D.O.
[2021-09-12 16:00] VITALS: BP 118/82; PULSE 80; RESP 16; TEMP 36.7; O2SAT 100
[2021-09-12 16:24] LABS: Basophils Absolute Auto 0.1 K/mm3 (0.0-0.1); Basophils Percent Auto 0.8 % (0.2-1.2); Eosinophils Absolute Auto 0.1 K/mm3 (0-0.3); Hematocrit 38.7 % (42.0-52.0); Hemoglobin 12.9 g/dL (14.0-18.0); Immature Granulocyte Percent A 0.8 % (0-0.5); Lymphocytes Absolute Auto 3.49 K/mm3 (0.9-3.2); Lymphocytes Percent Auto 29.5 % (18.3-44.2); Mean Corpuscular HGB Conc 33.3 g/dl (32-36); Mean Corpuscular Hemoglobin 27.4 pg (26-34); Mean Corpuscular Volume 82.2 fl (80-100); Mean Platelet Volume 10.8 fl (7.4-10.4); Monocytes Absolute Auto 1.1 K/mm3 (0.1-0.6); Neutrophils Percent Auto 58.9 % (45.5-73.1); Platelet Count Result 300 k/mm3 (150-375); Red Blood Count 4.71 M/mm3 (4.6-6.20); Red Cell Distribution Width 13.5 % (11.5-14.5); White Blood Count 11.8 K/mm3 (4.5-10.0)
[2021-09-12 16:35] LABS: Alanine Aminotransferase 14 U/L (4-50); Albumin Level 4.2 g/dL (3.5-5.1); Alkaline Phosphatase 119 U/L (38-126); Anion Gap 7 mmol/L (8-16); Aspartate Amino Transferase 17 U/L (17-59); Bilirubin,Total 0.3 mg/dL (0.2-1.3); Blood Urea Nitrogen 9 mg/dL (9-20); Calcium 9.2 mg/dL (8.4-10.2); Carbon Dioxide 27 mmol/L (22-30); Chloride 102 mmol/L (98-107); Estimated CRCL calculation 139 ml/min; Estimated Glomerular Filt Rate > 60; Glucose 176 mg/dL (65-110); Lipase 41 U/L (23-300); Potassium 3.9 mmol/L (3.4-5.0); Sodium 136 mmol/L (137-145)
[2021-09-12 16:36] LABS: INR 0.9
[2021-09-12 16:37] LABS: Partial Thromboplastin Time 26.5 SECONDS (22.3-36.8)
[2021-09-12 16:46] LABS: Troponin I < 0.012 ng/mL (0.000-0.034)
[2021-09-12 18:08] VITALS: BP 128/81; PULSE 72; PULSE 75; RESP 16; O2SAT 99
[2021-09-12] MEDS: ASPIRIN 81 MG CHEWABLE TABLET 324 MG PO (18:25)
[2021-09-12 18:44] VITALS: BP 130/85; PULSE 76; RESP 23; O2SAT 100
[2021-09-12 19:21] LABS: Troponin I < 0.012 ng/mL (0.000-0.034)
[2021-09-12 19:27] LABS: CRP < 0.5 mg/dL (<1.0)
--- NOTE | 2021-09-12 19:48 | ED.GENADULT ---
HPI - General Adult General Chief complaint: Chest Pain Stated complaint: chest pain Time Seen by Provider: 09/12/21 18:07 Source: patient Mode of arrival: ambulatory Limitations: no limitations History of Present Illness HPI narrative: 46-year-old male Here for several reasons He was recently hospitalized here and then went to assisted living for an additional 24 days of IV antibiotics for treatment of a diabetic foot ulcer and a left shoulder joint infection Completed this treatment a bit over 10 days ago Patient notes that he continues to have pain in the shoulder and in his feet In addition since the PICC line was removed he complains that he has had some discomfort in his arm and occasional chest pains Pains are not triggered by exertion nor the accompanied by any other associated symptoms and are generally brief in duration No cough or fever He was supposed to be followed up by Ortho 10 days after the conclusion of his treatment but has not been yet, and also it looks like he was supposed to follow-up with podiatry but does not necessarily look like he was given the name of a glass tinter to see Related Data Allergies Allergy/AdvReac Type Severity Reaction Status Date / Time No Known Allergies Allergy Verified 08/03/21 11:52 Review of Systems Review of Systems: All systems reviewed & are unremarkable except as noted in HPI and below Constitutional: Constitutional: Reports no additional constitutional complaints, Denies chills, Denies fever(s) and Denies headache(s) Eyes: Eyes: Reports no additional eye complaints and Denies change in vision ENT: Denies headache(s) and Denies sore throat Cardiovascular: Cardiovascular: Reports chest pain, Denies rapid heart rate, Denies radiating jaw, neck or arm pain and Denies dyspnea Respiratory: Respiratory: Denies cough and Denies dyspnea Gastrointestinal: Gastrointestinal: Denies abdominal pain, Denies diarrhea, Denies nausea and Denies vomiting Genitourinary: Genitourinary: Denies dysuria and Denies urinary frequency Musculoskeletal: Musculoskeletal: Reports myalgias, Denies deformity, Reports arthralgias, Denies joint swelling and Denies numbness Integumentary/Breasts: Skin/Breast: Denies erythema, Denies rash and Denies wounds Neurologic: Denies headache(s), Denies focal weakness and Denies numbness Psychiatric: Psychiatric: Reports no additional psychiatric complaints Endocrine: Endocrine: Reports no additional endocrine complaints Hematologic/Lymphatic: Hematologic/Lymphatic: Reports no additional hematologic/lymphatic complaints Allergic/Immunologic: Allergic/Immunologic: Reports no additional allergic/immunologic complaints PMFSH Past Medical History Medical History Diabetic peripheral neuropathy Tobacco dependence Type 2 diabetes mellitus Surgical History Surgical History No history of previous surgery Family History Family History Father Diabetes mellitus Social History Social History Social History: Surrogate decision maker: Silver Magdi, friend. CODE STATUS: Full code. Smoking packs per day: 1 Smoking cigarettes per day: 20.0 Years smoked: 20 Smoking pack-years: 20.00 Smoking status: Current every day smoker Tobacco type: cigarettes Alcohol intake: current Drinks per week: 14 Alcohol use details: Two cans of beer a night. Substance use: current Substance use type: marijuana Additional living arrangements comments: The patient lives in [place]. The mother of his child lives in this area and he frequently stays with her. Additional occupation/education comments: Currently unemployed. Exam Const: General: cooperative, no acute distress and alert Orientation/consciousness: patient lilly
[2021-09-12 19:49] LABS: Erythrocyte Sedimentation Rate 23 mm/hr (0-20)
[2021-09-12 20:09] VITALS: BP 138/86; PULSE 70; RESP 18; O2SAT 100
== END 2021-09-12 20:11 | disposition home or self-care (01) ==
PROVIDERS: Emergency Medicine; Emergency Provider Emergency Medicine; PCP Emergency Medicine
DX: M19.012 Primary osteoarthritis, left shoulder (principal); R07.9 Chest pain, unspecified; L84 Corns and callosities
CPT/HCPCS: 36415; 71046; 80053; 83690; 84484; 85025; 85610; 85652; 85730; 86140; 93005; 99284; A9270

== ENCOUNTER 2022-02-26 23:20 | Inpatient (IN) | payer MEDICAID, SELFPAY ==
--- NOTE | ~2022-02-26 | MR_ITS ---
EXAMINATION: MR foot RT wo/w con DATE: 02/27/2022 13:45 INDICATION: Right foot diabetic infection. TECHNIQUE: Magnetic resonance imaging (MRI) of the right foot was performed without and with 14 mL Mu ltiHance intravenous contrast. COMPARISON: CT 02/27/2022, radiographs 02/27/2022 FINDINGS: There is dorsiflexion of the second-fifth metatarsophalangeal joints and flexion of the int erphalangeal joints. There is soft tissue swelling and soft tissue gas dorsal to the fourth and fifth metatarsals. There is nonenhancement of the soft tissues in this area measuring 5.6 x 1.1 x 8.3 cm. There is bone marrow edema characterized by increased T2-weighted signal intensity and decreased T1-w eighted signal intensity involving the head and diaphysis of fifth middle tarsal and fifth proximal p halanx. There is an old united fracture of anterior process of calcaneus. There is mild osteoarthriti s of first metatarsophalangeal joint and many of the midfoot joints. Lisfranc ligament is normal. The musculature demonstrates widespread mild fatty atrophy and increased T2-weighted signal intensity, c onsistent with subacute on chronic degeneration. IMPRESSION: 1. Osteomyelitis involving the fifth metatarsal and fifth proximal phalanx. 2. Soft tissue necrosis in the dorsal lateral forefoot measuring 5.6 x 1.1 x 8.3 cm. Reviewed, dictated and finalized at location A. IMPRESSION: 1. Osteomyelitis involving the fifth metatarsal and fifth proximal phalanx. 2. Soft tissue necrosis in the dorsal lateral forefoot measuring 5.6 x 1.1 x 8. 3 cm.
--- NOTE | ~2022-02-26 | XR_ITS ---
XR foot RT min 3V 02/27/2022 00:26 Indication: Right foot pain. Diabetic foot ulcer. Procedure: 4 views right foot Comparison: 07/29/2021 Findings: There is soft tissue gas overlying the fourth and fifth metatarsals. No focal erosive mcknight e is identified no acute fracture or traumatic malalignment. Lisfranc joint intact. There is mild seema yarticular osteoarthritis of the first metatarsal phalangeal joint. Impression: 1: No acute bone or joint abnormality. 2: Moderate soft tissue gas overlying the fourth and fifth metatarsals. If there is concern for under lying osteomyelitis, consider correlation with MRI. Reviewed, dictated and finalized at location A. Impression: 1: No acute bone or joint abnormality. 2: Moderate soft tissue gas overlying the fourth and fifth metatarsals. If ther e is concern for underlying osteomyelitis, consider correlation with MRI.
--- NOTE | ~2022-02-26 | CT_ITS ---
EXAMINATION: CT foot RT wo con DATE: 02/27/2022 01:26 INDICATION: Evaluate for osteomyelitis. Diabetic foot ulcer. TECHNIQUE: Computed tomography (CT) of the right foot was performed without intravenous contrast. The dose-length product was 708.47 mGy-cm. Automated exposure control and iterative reconstruction techn ique were employed. COMPARISON: None FINDINGS: No focal osteolytic or blastic lesions are identified in the right foot. No significant per iosteal reaction. There is prominent soft tissue emphysema along the anterior and lateral aspects of the foot, consistent with cellulitis. There is moderate soft tissue swelling associated with the emph ysema. No acute fracture or traumatic malalignment. IMPRESSION: 1. Moderate soft tissue swelling with associated emphysema involving the anterior lateral foot, consi stent with cellulitis. No evidence for osteomyelitis. Consider correlation with MRI with contrast. Reviewed, dictated and finalized at location A. IMPRESSION: 1. Moderate soft tissue swelling with associated emphysema involving the anteri or lateral foot, consistent with cellulitis. No evidence for osteomyelitis. 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
[2022-02-26 23:22] VITALS: BP 143/66; PULSE 105; RESP 18; TEMP 37.4; O2SAT 99
--- NOTE | 2022-02-26 23:38 | ED.WOUNDLAC ---
HPI - Wound/Laceration General Chief Complaint: Wound/Laceration Stated Complaint: diabetic foot wound Time Seen by Provider: 02/26/22 23:26 History of Present Illness HPI narrative: 46-year-old male presents to the emergency room for evaluation of the right foot pain. Patient states he noticed his right foot becoming red and swollen and painful over the course of the last week. Patient also states a malodorous draining wound to the outside of his foot at the base of his fifth toe. Patient states that he is a diabetic, but is not under the care of any physician. Patient states that he has been taking metformin that was prescribed to him over 6 months ago. Patient does have a history of osteomyelitis and diabetic foot. Related Data Allergies Allergy/AdvReac Type Severity Reaction Status Date / Time No Known Allergies Allergy Verified 08/03/21 11:52 Review of Systems Review of Systems: CONSTITUTIONAL: Denies fever, chills, or sweats. EYES: Denies visual changes, redness, or discharge. ENT: Denies rhinorrhea, congestion, sore throat, or otalgia. CARDIOVASCULAR: Denies chest pain, palpitations, or edema. RESPIRATORY: Denies cough or dyspnea. GASTROINTESTINAL: Denies abdominal pain, nausea, vomiting, or diarrhea. GENITOURINARY: Denies dysuria or hematuria. SKIN: Reports open wound to the right foot MUSCULOSKELETAL: Reports right foot pain NEUROLOGIC: Denies headache, numbness, dizziness, or weakness. PSYCHIATRIC: Denies anxiety or depression. [facility] Past Medical History Medical History Diabetic peripheral neuropathy Tobacco dependence Type 2 diabetes mellitus Surgical History Surgical History No history of previous surgery Family History Family History Father Diabetes mellitus Social History Social History Social History: Surrogate decision maker: Silver Fairbanks, friend. CODE STATUS: Full code. Smoking packs per day: 1 Smoking cigarettes per day: 20.0 Years smoked: 20 Smoking pack-years: 20.00 Smoking status: Current every day smoker Tobacco type: cigarettes Alcohol intake: current Drinks per week: 14 Alcohol use details: Two cans of beer a night. Substance use: current Substance use type: marijuana Additional living arrangements comments: The patient lives in [place]. The mother of his child lives in this area and he frequently stays with her. Additional occupation/education comments: Currently unemployed. Exam Narrative: GENERAL: Well-appearing, well-nourished, and in no acute distress. HEAD: Normocephalic, atraumatic. EYES: PERRLA and EOMI. ENT: Nares clear, no rhinorrhea or epistaxis. Mucous membranes moist. Oropharynx without tonsillar hypertrophy exudate or other lesions. Bilateral TMs pearly frankel nonbulging NECK: Supple. No adenopathy or masses. No carotid bruits or JVD CHEST: Clear to auscultation. No respiratory distress. No wheezes rales or rhonchi HEART: Regular rate and rhythm. No murmur heard. Normal peripheral pulses. ABDOMEN: Soft, nontender, nondistended, normal active bowel sounds. EXTREMITIES: Normal range of motion. No edema. SKIN: Right foot: Erythema and soft tissue swelling to the dorsum of the foot. Open wound to the lateral aspect of the fifth digit, with purulent drainage that extends into the subcutaneous tissue. No bone is grossly visible or palpable with a cotton tip probe NEURO: No focal deficits. Alert and oriented x3. PSYCH: Normal mood and affect. Course Vital Signs Vital signs: Vital Signs Temperature 37.4 C 02/26/22 23:22 Pulse Rate 105 H 02/26/22 23:22 Respiratory Rate 18 02/26/22 23:22 Blood Pressure 143/66 H 02/26/22 23:22 Pulse Oximetry 99 02/26/22 23:22 Oxygen Delivery Room Air 02/26/22 23:2
[2022-02-27] VITALS (24 sets, daily range): BP systolic 108–156; BP diastolic 57–86; PULSE 69–88; RESP 12–20; TEMP 36–36.6; O2SAT 96–100
[2022-02-27] MEDS: SODIUM CHLORIDE 0.9% IV 1,000 ML 150 ML IV CONT (00:04)
[2022-02-27] MEDS: ONDANSETRON INJ 4 MG/2 ML VIAL IV PUSH (00:04)
[2022-02-27] MEDS: MORPHINE SULFATE (*CRX) 4 MG/ML INJ IV PUSH ×3 (00:05→10:30)
[2022-02-27 00:27] LABS: INR 1.1; Prothrombin Time 13.5 Seconds (11.1-14.7)
[2022-02-27 00:27] LABS: Basophils Absolute Auto 0.1 K/mm3 (0.0-0.1); Basophils Percent Auto 0.4 % (0.2-1.2); Hematocrit 36.3 % (42.0-52.0); Immature Granulocyte Absolute 0.26 K/mm3 (0.00-0.031); Immature Granulocyte Percent A 1.3 % (0-0.5); Lymphocytes Absolute Auto 1.63 K/mm3 (0.9-3.2); Lymphocytes Percent Auto 7.9 % (18.3-44.2); Mean Corpuscular HGB Conc 33.1 g/dl (32-36); Mean Corpuscular Hemoglobin 27.9 pg (26-34); Mean Corpuscular Volume 84.4 fl (80-100); Mean Platelet Volume 11.2 fl (7.4-10.4); Monocytes Absolute Auto 2.2 K/mm3 (0.1-0.6); Monocytes Percent Auto 10.5 % (2.6-8.5); Neutrophils Absolute Auto 16.6 K/mm3 (1.3-6.7); Neutrophils Percent Auto 79.9 % (45.5-73.1); Platelet Count Result 254 k/mm3 (150-375); Red Cell Distribution Width 13.2 % (11.5-14.5); White Blood Count 20.7 K/mm3 (4.5-10.0)
[2022-02-27 00:28] LABS: Partial Thromboplastin Time 38.6 SECONDS (22.3-36.8)
[2022-02-27 00:30] LABS: Lactic Acid Reflex 1.3 mmol/L (0.7-2.0)
[2022-02-27 00:32] LABS: Hemoglobin A1C 9.5 % (<5.7)
[2022-02-27 00:33] LABS: Alanine Aminotransferase 18 U/L (6-50); Albumin Level 3.6 g/dL (3.5-5.1); Alkaline Phosphatase 143 U/L (38-126); Anion Gap 10 mmol/L (8-16); Aspartate Amino Transferase 28 U/L (17-59); Bilirubin,Total 1.1 mg/dL (0.2-1.3); Blood Urea Nitrogen 14 mg/dL (9-20); CRP 8.9 mg/dL (<1.0); Calcium 8.3 mg/dL (8.4-10.2); Carbon Dioxide 23 mmol/L (22-30); Chloride 97 mmol/L (98-107); Estimated CRCL calculation 102 ml/min; Estimated Glomerular Filt Rate > 60; Glucose 239 mg/dL (65-110); Sodium 130 mmol/L (137-145)
[2022-02-27 00:55] LABS: Erythrocyte Sedimentation Rate 55 mm/hr (0-20)
--- NOTE | 2022-02-27 01:23 | PC.NURSE ---
IVF previously running at 150cc/hr opened wide for fluid bolus per order.
--- NOTE | 2022-02-27 02:03 | PC.NURSE ---
Awaiting pharmacy to acknowledge antibiotics prior to administration. Msg left with pharmacy
[2022-02-27 02:09] LABS: SARS-CoV-2 RNA PCR Negative
[2022-02-27 02:38] LABS: Appearance Urine Clear (Clear); Bilirubin Urine 1+ (Negative); Blood Urine Negative (Negative); Color Urine Yellow (Yellow); Glucose Urine UA 3+ mg/dL (Negative); Ketones Urine 3+ mg/dL (Negative); Leukocyte Esterase Ur Negative LEU/UL (Negative); Nitrate Urine Negative (Negative); Protein Urine 2+ mg/dL (Negative); Specific Grav Ur 1.025 (1.001-1.035)
[2022-02-27 02:41] LABS: Bacteria Urine Trace /hpf; Mucus Urine Rare /lpf; Squamous Epithelial Cell Urine Few /hpf (Few)
[2022-02-27 02:45] LABS: Add Urine Microscopic? YES
[2022-02-27] MEDS: SODIUM CHLORIDE 0.9% IV 1,000 ML 125 ML IV CONT ×3 (03:09→17:35)
--- NOTE | 2022-02-27 03:55 | ADMGEN ---
This patient, Celso López, was admitted to Medical Room 346-01. Patient/family oriented to hospital policies and general routines including ID bracelet, bed and alarms, visiting hours, pain management, procedures, bathroom and other care routines, personal items, smoking policy, room service/diet, and visiting hours. Information on how to activate the Rapid Response Team has been discussed. Patient/Family are encouraged to report perceived risks to care and to ask questions if they do not understand what they are told or what they should do.
[2022-02-27 07:42] LABS: Glucose Point of Care 251 mg/dl (65-105)
[2022-02-27] MEDS: INSULIN ASPART (*BKC) 100 UNITS/ML SUB-Q ×2 (08:31→17:35)
--- NOTE | 2022-02-27 09:04 | PM.IMHP ---
H&P: HPI History of Present Illness Date/Time: 02/27/22 09:04 Patient is a 46-year-old male with past medical history of diabetes and osteomyelitis, not currently under the care of the primary care physician, who presents to our care for right foot pain. Admission labs were notable for WBC of 20.7, CRP 8.9, glucose of 239, hemoglobin A1c of 9.5, and UA with protein, glucose ketones. Blood, urine, and wound cultures were all collected in the ER. Right foot CT showed cellulitis with no evidence for osteomyelitis. Patient started on Primaxin and vancomycin in the ER. Patient reports he does not follow with podiatry. He has a history of osteomyelitis of the left great toe, which does not have any concern for recurrence at this time. Patient does deny chest pain, shortness a breath, fevers, chills, calf pain, claudication. He states the right foot pain became worse over the course several days. 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 He did not believe he had insurance or would be able to afford diabetic medications, however, care coordination found he does have [place] medicaid. <Melanie Salas PA-C - Last Filed: 02/27/22 14:45> Chief Complaint: Right foot pain <Melanie Salas PA-C - Last Filed: 02/27/22 14:45> Review of Systems Review of Systems: All systems reviewed & are unremarkable except as noted in HPI and below <Melanie Salas PA-C - Last Filed: 02/27/22 14:45> [facility] Past Medical History Medical History: Medical History Diabetic peripheral neuropathy History of osteomyelitis Left hallux osteomyelitis in July 2021 treated with IV antibiotics Tobacco dependence Type 2 diabetes mellitus <Melanie Salas PA-C - Last Filed: 02/27/22 14:45> Surgical History Surgical History: Surgical History History of shoulder surgery Septic shoulder in July 2021 <Melanie Salas PA-C - Last Filed: 02/27/22 14:45> Family History Family History: Family History Father Diabetes mellitus Mother Diabetes mellitus <eMlanie Salas PA-C - Last Filed: 02/27/22 14:45> Social History Social History: Social History Social History: Surrogate decision maker: Silver Fairbanks, friend. CODE STATUS: Full code. Smoking packs per day: 1 Smoking cigarettes per day: 20.0 Years smoked: 20 Smoking pack-years: 20.00 Smoking status: Current every day smoker Tobacco type: cigarettes Alcohol intake: current Drinks per week: 4 Alcohol use details: Two cans of beer a night. Substance use: current Substance use type: marijuana Additional living arrangements comments: The patient lives in [place]. The mother of his child lives in this area and he frequently stays with her. Additional occupation/education comments: Currently unemployed. Spiritual care concerns: No <Melanie Salas PA-C - Last Filed: 02/27/22 14:45> Comments Patient has [place] medicaid but was unaware that he had any health insurance. <Melanie Salas PA-C - Last Filed: 02/27/22 14:45> Meds Home Medications and Allergies Home medications: Home Medications Medication Instructions Recorded Confirmed Type glipizide 5 mg tablet 2.5 mg PO DAILY@0630 30 days #15 08/04/21 02/27/22 Rx tabs metformin 500 mg tablet 1,000 mg PO BIDWMEAL 02/27/22 02/27/22 History <Melanie Salas PA-C - Last Filed: 02/27/22 14:45> Allergies/Adverse reactions: Allergies Allergy/AdvReac Type Severity Reaction Status Date / Time No Known Allergies Allergy Verified 02/27/22 15:24 <Melanie Salas PA-C - Last Filed: 02/27/22 14:45> Vital Signs Vital Signs - 24 hr 02/26/22 23:22 02/27/22 00:16 02/27/22 00:17 Temperature 99.3 F Pul
[2022-02-27 09:42] LABS: Basophils Absolute Auto 0.1 K/mm3 (0.0-0.1); Basophils Percent Auto 0.4 % (0.2-1.2); Eosinophils Absolute Auto 0.1 K/mm3 (0-0.3); Eosinophils Percent Auto 0.3 % (0-4.4); Immature Granulocyte Absolute 0.15 K/mm3 (0.00-0.031); Immature Granulocyte Percent A 0.8 % (0-0.5); Lymphocytes Absolute Auto 1.56 K/mm3 (0.9-3.2); Lymphocytes Percent Auto 8.3 % (18.3-44.2); Mean Corpuscular HGB Conc 32.4 g/dl (32-36); Mean Corpuscular Hemoglobin 27.6 pg (26-34); Mean Corpuscular Volume 85.4 fl (80-100); Mean Platelet Volume 10.6 fl (7.4-10.4); Monocytes Absolute Auto 2.1 K/mm3 (0.1-0.6); Monocytes Percent Auto 11.3 % (2.6-8.5); Neutrophils Absolute Auto 14.9 K/mm3 (1.3-6.7); Neutrophils Percent Auto 78.9 % (45.5-73.1); Platelet Count Result 240 k/mm3 (150-375); Red Blood Count 3.98 M/mm3 (4.6-6.20); Red Cell Distribution Width 13.2 % (11.5-14.5); White Blood Count 18.8 K/mm3 (4.5-10.0)
--- NOTE | 2022-02-27 09:56 | PM.CNGS ---
Assessment and Plan Assessment and plan (1) Diabetic infection of right foot: Code(s): E11.628 - Type 2 diabetes mellitus with other skin complications; L08.9 - Local infection of the skin and subcutaneous tissue, unspecified Status: Acute Assessment and Plan: The patient presents with an infected diabetic foot ulcer on the lateral aspect of the right foot extending over at least the 4th and 5th metatarsal. Plain films and CT do not show any evidence of osteomyelitis. Wound cultures pending. Will order an MRI with contrast of the right foot to further evaluate for possible osteomyelitis. I will also make him NPO for now in case of the need for surgery later today. If there is no evidence of osteomyelitis on MRI, then he will at least need surgical debridement of the right foot ulcer. If there is evidence of osteomyelitis on MRI, then we may need to consider other surgical options, such as an amputation. Continue the IV Primaxin and Vancomycin. Will await MRI results. (2) Leukocytosis: Code(s): D72.829 - Elevated white blood cell count, unspecified Status: Acute Assessment and Plan: Likely secondary to above. Continue IV antibiotics, monitor labs, see plan above regarding the right foot infection. (3) Uncontrolled type II diabetes mellitus: Code(s): E11.65 - Type 2 diabetes mellitus with hyperglycemia Status: Acute Assessment and Plan: Glucose in the 200's on admission and hemoglobin A1C 9.5. Management per Hospitalist. (4) Diabetic peripheral neuropathy: Code(s): E11.42 - Type 2 diabetes mellitus with diabetic polyneuropathy Status: Acute (5) Tobacco dependence: Code(s): F17.200 - Nicotine dependence, unspecified, uncomplicated Status: Acute Assessment and Plan: Encouraged cessation. Additional Plan I have discussed the patient's case and plan of care with Dr. Hanley. Thank you for allowing us to see the patient in consultation and we will continue to follow along with you. History of Present Illness Consult details Consult date: 02/27/22 Reason for consult: other (Right diabetic foot infection) Requesting physician: David Elder APRN Narrative: This is a 46-year-old male with a history of type 2 diabetes mellitus and peripheral neuropathy, who presented to the ER with complaints of right foot swelling, pain, and redness. The patient was previously seen by our service in July of 2021 for left hallux osteomyelitis and sepsis. He was discharged to a [facility] facility in [place] and reportedly completed 6 weeks of IV antibiotics. He states he improved and was back to baseline after the antibiotics, and was sent back home where he lives alone. He reports that the left foot and right foot wounds healed and are now callused. He now reports noticing an open right foot wound on the lateral aspect of his foot for the past week. He reports that he then developed redness, swelling, and pain of the right foot over the past few days. The open wound also began draining over the past few days. He denies fever or chills. 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 He was concerned he could have been exposed to some chemicals at work that went into his shoes causing the changes in his foot, and decided to come in for further evaluation to the ER. He was found to have a right diabetic foot infection. His labs showed a WBC count of 20,700, CRP 8.9, glucose 239, and hemoglobin A1C 9.5. Right foot x-ray showed moderate soft tissue gas overlying the 4th and 5th metatarsals, but no bone or joint abnormality. Right foot CT showed moderate soft tissue swelling with associated emphysema involving the anterior lateral foot, consistent with cellulitis. No evidence of osteomyelitis. Recommended MRI with contrast. Wound and blood cultures were obtained. The patient was admitted to the [facility]
[2022-02-27 09:58] LABS: Alanine Aminotransferase 15 U/L (6-50); Albumin Level 3.1 g/dL (3.5-5.1); Alkaline Phosphatase 110 U/L (38-126); Anion Gap 3 mmol/L (8-16); Aspartate Amino Transferase 20 U/L (17-59); Bilirubin,Total 0.9 mg/dL (0.2-1.3); Blood Urea Nitrogen 11 mg/dL (9-20); Calcium 8.1 mg/dL (8.4-10.2); Carbon Dioxide 27 mmol/L (22-30); Chloride 102 mmol/L (98-107); Estimated CRCL calculation 102 ml/min; Estimated Glomerular Filt Rate > 60; Glucose 349 mg/dL (65-110); Potassium 4.2 mmol/L (3.4-5.0); Sodium 132 mmol/L (137-145)
[2022-02-27 11:48] LABS: Glucose Point of Care 269 mg/dl (65-105)
--- NOTE | 2022-02-27 15:00 | WPDHPUPDATE1 ---
History and Physical Update Update Date/Time: 02/27/22 15:00 History and Physical has been reviewed, including an updated exam of the patient. There are NO changes in the patient's condition. Risks, benefits, and alternatives have been discussed and questions answered. Patient agrees to proceed with procedure.
--- NOTE | 2022-02-27 15:19 | WPDANESEPPF ---
Anes - Initial Pre Proc Eval Procedure: Operation Date: 02/27/22 15:00 Proposed Procedures p Incision and Drainage Right Foot Wound - Ciro Hanley DO Date/Time: 02/27/22 15:19 Surgeon: Melanie Salas PA-C Pre Op Diagnosis: diabetic wound infection Patient Data Age: 46 Gender: M Height: 1.8 m Weight: 72 kg Last Vital Signs Temp 36.2 C L 02/27/22 14:00 Pulse 75 02/27/22 14:00 Resp 18 02/27/22 14:00 BP 150/77 H 02/27/22 14:00 Pulse Ox 100 02/27/22 14:00 O2 Del Method Room Air 02/26/22 23:22 Allergies Allergy/AdvReac Type Severity Reaction Status Date / Time No Known Allergies Allergy Verified 08/03/21 11:52 Home Medications Medication Instructions Recorded Confirmed Type glipizide 5 mg tablet 2.5 mg PO DAILY@0630 30 days #15 08/04/21 02/27/22 Rx tabs metformin 500 mg tablet 1,000 mg PO BIDWMEAL 02/27/22 02/27/22 History Laboratory Tests 02/26/22 02/26/22 02/26/22 23:54 23:54 23:54 WBC 20.7 K/mm3 H K/mm3 (4.5-10.0) RBC 4.30 M/mm3 L M/mm3 (4.6-6.20) Hgb 12.0 g/dL L g/dL (14.0-18.0) Hct 36.3 % L % (42.0-52.0) MCV 84.4 fl fl (80-100) MCH 27.9 pg pg (26-34) MCHC 33.1 g/dl g/dl (32-36) RDW 13.2 % % (11.5-14.5) Plt Count 254 k/mm3 k/mm3 (150-375) MPV 11.2 fl H fl (7.4-10.4) Immature Gran % (Auto) 1.3 % H % (0-0.5) Neut % (Auto) 79.9 % H % (45.5-73.1) Lymph % (Auto) 7.9 % L % (18.3-44.2) Isabela % (Auto) 10.5 % H % (2.6-8.5) Eos % (Auto) 0.0 % % (0-4.4) Baso % (Auto) 0.4 % % (0.2-1.2) Lymph # (Auto) 1.63 K/mm3 K/mm3 (0.9-3.2) Isabela # (Auto) 2.2 K/mm3 H K/mm3 (0.1-0.6) Eos # (Auto) 0.0 K/mm3 K/mm3 (0-0.3) Baso # (Auto) 0.1 K/mm3 K/mm3 (0.0-0.1) Abs Immat Gran (auto) 0.26 K/mm3 H K/mm3 (0.00-0.031) Absolute Neuts (auto) 16.6 K/mm3 H K/mm3 (1.3-6.7) Absolute Nucleated RBC 0.0 K/mm3 K/mm3 (0.0-0.012) Nucleated RBC % 0.0 % % (0.0-0.2) ESR PT INR APTT Sodium 130 mmol/L L mmol/L (137-145) Potassium 4.0 mmol/L mmol/L (3.4-5.0) Chloride 97 mmol/L L mmol/L (98-107) Carbon Dioxide 23 mmol/L mmol/L (22-30) Anion Gap 10 mmol/L mmol/L (8-16) BUN 14 mg/dL D mg/dL (9-20) Creatinine 0.80 mg/dL mg/dL (0.7-1.3) Estim Creat Clear Calc 102 ml/min ml/min Estimated GFR > 60 (59 - ) Glucose 239 mg/dL H mg/dL (65-110) POC Capillary Glucose Hemoglobin A1c 9.5 % H % (<5.7) Lactic Acid Calcium 8.3 mg/dL L mg/dL (8.4-10.2) Total Bilirubin 1.1 mg/dL mg/dL (0.2-1.3) AST 28 U/L U/L (17-59) ALT 18 U/L U/L (6-50) Alkaline Phosphatase 143 U/L H U/L (38-126) C-Reactive Protein 8.9 mg/dL H mg/dL (<1.0) Total Protein 7.0 g/dL g/dL (6.3-8.2) Albumin 3.6 g/dL g/dL (3.5-5.1) Urine Color Urine Appearance Urine pH Ur Specific [place] Urine Protein Urine Glucose (UA) Urine Ketones Ur Blood (Man) Urine Nitrate Urine Bilirubin Urine Urobilinogen Leukocyte Esterase Rfl Urine RBC Urine WBC Ur Squamous Epith Cells Urine Bacteria Urine Mucus SARS-CoV-2 RNA (RT-PCR) 02/26/22 02/26/22 02/26/22 23:54 23:55 23:55 WBC RBC Hgb Hct MCV MCH MCHC RDW Plt Count MPV Immature Gran % (Auto) N
[2022-02-27] MEDS: LACTATED RINGERS 1,000 ML 30 ML IV CONT (15:25)
--- NOTE | 2022-02-27 15:55 | P.OP_ITS ---
Procedure Note - Detailed Date of Procedure 02/27/22 Pre-op Diagnosis diabetic right foot infection Post-op Diagnosis Same Procedure Performed 1. Incision and drainage of right foot abscess 2. Sharp excisional debridement of right foot necrotizing soft tissue infection including skin, subcutaneous fat, and muscle measuring 4 cm x 5 cm Surgeon Ciro Hanley, DO Anesthesia General and Local (0.5% bupivacaine) Indications This is a 46-year-old man who presented with a right foot infection. He is a poorly controlled diabetic and has had previous foot wounds and infections. He has had a wound on the lateral aspect of his right foot that started several days ago and has extended onto the dorsal surface more medially. There is foul- smelling purulence drainage coming from an opening on the wound. Discussions were made with the patient about treatment options and decision was made to proceed with incision and drainage of right foot wound. Findings Incision and drainage was performed. Upon opening the wound there was a significant amount of purulence fluid tunneling under the skin from the right 5th metatarsal head medially to about the 3rd metatarsal head. The skin overlying this area appeared necrotic. The skin was excised using a 15 blade scalpel back to healthy appearing tissue. There was also some necrotic tissue underlying the skin including subcutaneous fat and muscle. All the necrotic tissue was debrided away. There did appear to be visible tendon within the wound bed, but no exposed bone was identified. The wound was then cultured with a culture swab and then irrigated with sterile saline. The wound was packed with Betadine-soaked Kerlix gauze followed by sterile dressing. Description of Procedure Procedure as well as risks, benefits, and alternatives were discussed with the patient. Written consent was obtained and placed in chart prior to procedure. Patient was brought back to surgical suite. He was placed supine on operating table. Time-out was done to confirm patient and procedure. He was then intubated by anesthesia department. His right foot area was prepped and draped in sterile fashion using Betadine prep. 0.5% bupivacaine was infiltrated locally around the foot wound. A 15 blade scalpel was then used to make an incision directly over the open wound on the lateral aspect of the right 5th metatarsal head. The incision was then carried medially where the infection was tracking. The skin overlying the surface appeared necrotic and required excision. The necrotic tissue was debrided back to healthy appearing tissue. The total debridement area measured about 4 cm x 5 cm and included skin, subcutaneous fat, and muscle. The underlying tendon appeared intact. The wound was then cultured with a culture swab. The wound was irrigated with sterile saline. A Betadine-soaked 3 in Kerlix gauze was packed within the wound followed by fluffed gauze, ABD pad, and a 4 in Kerlix wrap. The patient was then awakened from anesthesia, extubated, and transferred to recovery. Estimated Blood Loss 5 Packing Yes (3 in Betadine-soaked Kerlix gauze) Complications No immediate complications Condition Stable Disposition Floor [facility] Billing Surgery - Charge Forward: Surgery Billing
[2022-02-27 16:23] LABS: Glucose Point of Care 228 mg/dl (65-105)
--- NOTE | 2022-02-27 16:23 | SUR.PHASEI ---
1623- Call to Dr. Parada patient's blood glucose 228 at 1620 check. No new orders at this time.
[2022-02-27 17:22] LABS: Glucose Point of Care 269 mg/dl (65-105)
[2022-02-27] MEDS: HYDROcodone/acetaminophen (*CRX) 7.5-325 MG TABLET 1 TAB PO (20:20)
[2022-02-27] MEDS: INSULIN GLARGINE (*BKC) 100 UNITS/ML 11 UNITS SUB-Q (21:01)
[2022-02-27 21:02] LABS: Glucose Point of Care 291 mg/dl (65-105)
[2022-02-28] MEDS: SODIUM CHLORIDE 0.9% IV 1,000 ML 125 ML IV CONT ×2 (01:34→09:03)
[2022-02-28] MEDS: HYDROcodone/acetaminophen (*CRX) 7.5-325 MG TABLET 1 TAB PO ×3 (02:13→19:04)
[2022-02-28 02:28] VITALS: BP 121/73; PULSE 72; RESP 18; TEMP 37.2; O2SAT 99
[2022-02-28 05:53] LABS: Basophils Absolute Auto 0.1 K/mm3 (0.0-0.1); Basophils Percent Auto 0.5 % (0.2-1.2); Eosinophils Absolute Auto 0.1 K/mm3 (0-0.3); Eosinophils Percent Auto 0.7 % (0-4.4); Hematocrit 31.9 % (42.0-52.0); Hemoglobin 10.5 g/dL (14.0-18.0); Immature Granulocyte Absolute 0.11 K/mm3 (0.00-0.031); Immature Granulocyte Percent A 0.8 % (0-0.5); Lymphocytes Absolute Auto 1.84 K/mm3 (0.9-3.2); Lymphocytes Percent Auto 14.1 % (18.3-44.2); Mean Corpuscular HGB Conc 32.9 g/dl (32-36); Mean Corpuscular Hemoglobin 27.9 pg (26-34); Mean Corpuscular Volume 84.6 fl (80-100); Mean Platelet Volume 10.7 fl (7.4-10.4); Monocytes Absolute Auto 1.5 K/mm3 (0.1-0.6); Monocytes Percent Auto 11.2 % (2.6-8.5); Neutrophils Absolute Auto 9.5 K/mm3 (1.3-6.7); Neutrophils Percent Auto 72.7 % (45.5-73.1); Platelet Count Result 257 k/mm3 (150-375); Red Blood Count 3.77 M/mm3 (4.6-6.20); Red Cell Distribution Width 13.3 % (11.5-14.5)
[2022-02-28 06:01] VITALS: BP 124/64; PULSE 64; RESP 18; TEMP 36.8; O2SAT 100
[2022-02-28 06:11] LABS: Alanine Aminotransferase 19 U/L (6-50); Alkaline Phosphatase 119 U/L (38-126); Anion Gap 2 mmol/L (8-16); Aspartate Amino Transferase 35 U/L (17-59); Bilirubin,Total 0.3 mg/dL (0.2-1.3); Blood Urea Nitrogen 11 mg/dL (9-20); Calcium 8.1 mg/dL (8.4-10.2); Carbon Dioxide 27 mmol/L (22-30); Chloride 104 mmol/L (98-107); Estimated CRCL calculation 116 ml/min; Estimated Glomerular Filt Rate > 60; Glucose 274 mg/dL (65-110); Potassium 4.3 mmol/L (3.4-5.0); Sodium 133 mmol/L (137-145)
[2022-02-28 07:50] LABS: Glucose Point of Care 234 mg/dl (65-105)
[2022-02-28] MEDS: INSULIN ASPART (*BKC) 100 UNITS/ML SUB-Q ×4 (09:11→18:54)
--- NOTE | 2022-02-28 11:00 | PM.IMPN ---
Progress Note: A&P Assessment and Plan (1) Osteomyelitis of foot, right, acute: Code(s): M86.171 - Other acute osteomyelitis, right ankle and foot Status: Acute Assessment and Plan: CT showing cellulitis of the right foot without osteomyelitis surgery has been consulted wound Care will be consulted wound cultures pending, prior cultures showed Group B Strep. Diabetic control Pain control. MRI of foot showed osteomyelitis of the 5th metatarsal and 5th proximal phalanx Patient made NPO Surgery is recommending patient getting amputation, which is R BKA Continue IV antibiotics. 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 (2) Diabetic ulcer of right foot: Qualifiers: Diabetes mellitus type: type 2 Diabetic foot ulcer location: midfoot Non-pressure ulcer stage: unspecified non-pressure ulcer stage Qualified Code(s): E11.621 - Type 2 diabetes mellitus with foot ulcer; L97.419 - Non-pressure chronic ulcer of right heel and midfoot with unspecified severity Code(s): E11.621 - Type 2 diabetes mellitus with foot ulcer; L97.519 - Non-pressure chronic ulcer of other part of right foot with unspecified severity Status: Deleted Assessment and Plan: WBC [address] showing cellulitis of the right foot without osteomyelitis surgery has been consulted wound Care will be consulted wound cultures pending, prior cultures showed Group B Strep. Diabetic control Pain control. MRI of foot showed osteomyelitis of the 5th metatarsal and 5th proximal phalanx Patient made NPO. Surgery is recommending patient getting amputation Continue IV antibiotics. (3) Leukocytosis: Code(s): D72.829 - Elevated white blood cell count, unspecified Status: Acute Assessment and Plan: Diabetic foot ulcer likely source. ESR/CRP elevated. Lactic acid 1.4. Vital signs stable at this time. Urine, blood, wound cultures taken, pending. Empiric vancomycin & Primaxin started, will continue pending culture and sensitivities. Repeat a.m. labs. Continue IVF at this time. (4) Uncontrolled type II diabetes mellitus: Code(s): E11.65 - Type 2 diabetes mellitus with hyperglycemia Status: Acute Assessment and Plan: Current glucose 274 A1c on admission is 9.5. Hold patient's home medications, likely these are in appropriate dosages as patient is not being actively managed. Increase basal insulin 15 units moderate dose sliding scale insulin Accu-Cheks, diabetic diet. Added 5 units with meals (5) Hyponatremia: Code(s): E87.1 - Hypo-osmolality and hyponatremia Status: Acute Assessment and Plan: Current Na 133 seems to be stable Continue gentle IV fluid resuscitation, continue to trend. Patient asymptomatic at this time. (6) Tobacco dependence: Code(s): F17.200 - Nicotine dependence, unspecified, uncomplicated Status: Acute Assessment and Plan: Encouraged smoking cessation. Will offer nicotine patch during his stay. Time Spent With Patient Time with patient: Greater than 35 minutes Subjective Date/time seen: 02/28/22 11:00 Interval history: 02/28/22 1100 Patient was lying in bed his foot was draining a purulent drainage. Patient rates his pain about a 7/10. Patient stated that he is very frustrated because he has been doing everything that he needs to do and does understand why he is having this infection issue. 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 He denies any chest pain, shortness of breath, nausea, vomiting, diarrhea, constipation, weakness or fatigue. Talked to the patient about the prosthodontist/educator which I said that he probably needs to see. Start patient on Lantus for further control. 02/27/22? 09:04 Patient is a 46-year-old male with past medical history of diabetes and osteomyelitis, not currently
--- NOTE | 2022-02-28 11:00 | P.PNIM_ITS ---
Progress Note: A&P Assessment and Plan (1) Osteomyelitis of foot, right, acute: Code(s): M86.171 - Other acute osteomyelitis, right ankle and foot Status: Acute Assessment and Plan: * CT showing cellulitis of the right foot without osteomyelitis * surgery has been consulted * wound Care will be consulted * wound cultures pending, prior cultures showed Group B Strep. * Diabetic control * Pain control. * MRI of foot showed osteomyelitis of the 5th metatarsal and 5th proximal phalanx * Patient made NPO * Surgery is recommending patient getting amputation, which is R BKA * Continue IV antibiotics. * Will need probable intermediate accountant antibiotics (2) Diabetic ulcer of right foot: Qualifiers: Diabetes mellitus type: type 2 Diabetic foot ulcer location: midfoot Non-pressure ulcer stage: unspecified non-pressure ulcer stage Qualified Code(s): E11.621 - Type 2 diabetes mellitus with foot ulcer; L97.419 - Non- pressure chronic ulcer of right heel and midfoot with unspecified severity Code(s): E11.621 - Type 2 diabetes mellitus with foot ulcer; L97.519 - Non-pressure chronic ulcer of other part of right foot with unspecified severity Status: Deleted Assessment and Plan: * WBC 20 on admission * CT showing cellulitis of the right foot without osteomyelitis * surgery has been consulted * wound Care will be consulted * wound cultures pending, prior cultures showed Group B Strep. * Diabetic control * Pain control. * MRI of foot showed osteomyelitis of the 5th metatarsal and 5th proximal phalanx * Patient made NPO. * Surgery is recommending patient getting amputation * Continue IV antibiotics. (3) Leukocytosis: Code(s): D72.829 - Elevated white blood cell count, unspecified Status: Acute Assessment and Plan: Diabetic foot ulcer likely source. ESR/CRP elevated. Lactic acid 1.4. Vital signs stable at this time. Urine, blood, wound cultures taken, pending. Empiric vancomycin & Primaxin started, will continue pending culture and sensiti vities. Repeat a.m. labs. Continue IVF at this time. (4) Uncontrolled type II diabetes mellitus: Code(s): E11.65 - Type 2 diabetes mellitus with hyperglycemia Status: Acute Assessment and Plan: * Current glucose 274 * A1c on admission is 9.5. * Hold patient's home medications, likely these are in appropriate dosages as patient is not being actively managed. * Increase basal insulin 15 units * moderate dose sliding scale insulin * Accu-Cheks, diabetic diet. * Added 5 units with meals (5) Hyponatremia: Code(s): E87.1 - Hypo-osmolality and hyponatremia Status: Acute Assessment and Plan: * Current Na 133 * seems to be stable * Continue gentle IV fluid resuscitation, continue to trend. Patient asymptomatic at this time. (6) Tobacco dependence: Code(s): F17.200 - Nicotine dependence, unspecified, uncomplicated Status: Acute Assessment and Plan: * Encouraged smoking cessation. Will offer nicotine patch during his stay. Time Spent With Patient Time with patient: Greater than 35 minutes Subjective Date/time seen: 02/28/22 11:00 Interval history: 02/28/22 1100 Patient was lying in bed his foot was draining a purulent drainage. Patient rates his pain about a 7/10. Patient stated that he is very frustrated because he has been doing everything that he needs to do and does understand why he is having thi
[2022-02-28 11:38] LABS: Glucose Point of Care 323 mg/dl (65-105)
[2022-02-28 11:39] VITALS: BP 128/67; PULSE 68; RESP 18; TEMP 37.2; O2SAT 100
--- NOTE | 2022-02-28 14:23 | PM.PNGS ---
Progress Note: A&P Assessment and Plan (1) Diabetic infection of right foot: Code(s): E11.628 - Type 2 diabetes mellitus with other skin complications; L08.9 - Local infection of the skin and subcutaneous tissue, unspecified Status: Acute Assessment and Plan: wound was assessed today, and infection continues along the proximal forefoot. This appears to be an aggressive soft tissue infection extending to at least the right 5th metatarsal bone. MRI confirms osteomyelitis involved. I had an extensive discussion with patient about the severity of this infection and the difficulty of healing long-term. This does not appear to be treatable with local wound care or even a transmetatarsal amputation. Below-knee amputation appears the only reasonable option to help control this infection and allow for healing. Especially with his poorly controlled diabetes and history of prior foot infections, any attempt at limb salvage will likely result in future infections and ultimately require amputation. I have recommended proceeding with right below-knee amputation. This will allow adequate healing for patient to eventually proceed with rehab and below-knee prosthesis. He still needs better control of his glucose to allow for healing. Will consult primary special educator to help with long-term treatment of his diabetes. Have continued to reiterate the importance of glucose control and smoking cessation. (2) Osteomyelitis of foot, right, acute: Code(s): M86.171 - Other acute osteomyelitis, right ankle and foot Status: Acute (3) Uncontrolled type II diabetes mellitus: Code(s): E11.65 - Type 2 diabetes mellitus with hyperglycemia Status: Acute (4) Tobacco dependence: Code(s): F17.200 - Nicotine dependence, unspecified, uncomplicated Status: Acute Subjective Subjective Date/Time Seen: 02/28/22 14:23 Interval history: Patient seen and at bedside with wound care nurse. Dressing removed, and wound carefully inspected. Patient's pain is controlled. Denies fevers. Swelling is somewhat improved. Exam Extrem: Other: Right foot wound with continued purulence drainage and proximal spread. Necrotic tissue remains within the wound bed. Involved skin includes dorsum of foot across distal 3 metatarsals and also extending along lateral 5th metatarsal and plantar surface. Objective Data Vital Signs Vital Signs: Vital Signs - 24 hr 02/27/22 15:26 02/27/22 15:53 02/27/22 16:05 Temperature 36.6 C 36.1 C L Pulse Rate 69 75 88 Respiratory Rate 18 12 14 Blood Pressure 156/86 H 134/84 118/72 Pulse Oximetry 99 100 100 Oxygen Delivery Room Air Simple Face Mask Simple Face Mask Oxygen Flow Rate 8 8 02/27/22 16:10 02/27/22 16:15 02/27/22 16:25 Temperature 36.4 C L Pulse Rate 83 80 78 Respiratory Rate 18 18 18 Blood Pressure 134/86 133/81 129/83 Pulse Oximetry 100 100 99 Oxygen Delivery Simple Face Mask Room Air Room Air Oxygen Flow Rate 8 02/27/22 16:35 02/27/22 16:50 02/27/22 18:23 Temperature Pulse Rate 75 69 Respiratory Rate 19 18 Blood Pressure 130/82 119/75 Pulse Oximetry 99 99 100 Oxygen Delivery Room Air Room Air Room Air Oxygen Flow Rate 02/27/22 17:05 02/27/22 17:20 02/27/22 17:50 Temperature 36.4 C L 36.4 C 36.6 C Pulse Rate 78 71 74 Respiratory Rate 20 20 18 Blood Pressure 137/84 129/79 132/78 Pulse Oximetry 99 100 100 Oxygen Delivery Oxygen Flow Rate 02/27/22 18:50 02/27/22 20:21 02/27/22 22:01 Temperature 36.6 C 36.5 C Pulse Rate 71 78 Respiratory Rate 20 18 Blood Pressure 136/82 114/69 Pulse Oximetry 100 100 96 Oxygen Delivery Room Air Oxygen Flow Rate 02/28/22 02:28 02/28/22 06:01 02/28/22 11:12 Temperature 37.2 C 36.8 C Pulse Rate 72 64 Respiratory Rate 18 18 Blood Pressure 121/73 124/64 Pulse Oximetry 99 100 Oxygen Delivery Room Air Oxygen Flow Rate 02/28/22 11:39 Temperature 37.2 C Pulse Rate 68
[2022-02-28 15:47] LABS: Vancomycin Trough 5.3 ug/mL (10.0-20.0)
[2022-02-28 16:37] LABS: Glucose Point of Care 287 mg/dl (65-105)
[2022-02-28 20:28] VITALS: BP 128/77; PULSE 83; RESP 18; TEMP 36.6; O2SAT 100
[2022-02-28] MEDS: SODIUM CHLORIDE 0.9% IV 1,000 ML 75 ML IV CONT (20:34)
[2022-02-28] MEDS: INSULIN GLARGINE (*BKC) 100 UNITS/ML 15 UNITS SUB-Q (20:41)
[2022-02-28 20:52] LABS: Glucose Point of Care 162 mg/dl (65-105)
[2022-03-01] VITALS (18 sets, daily range): BP systolic 135–199; BP diastolic 80–107; PULSE 68–96; RESP 12–18; TEMP 36.4–37.8; O2SAT 96–100
[2022-03-01] MEDS: HYDROcodone/acetaminophen (*CRX) 7.5-325 MG TABLET 1 TAB PO (05:11)
[2022-03-01 06:00] LABS: Basophils Absolute Auto 0.1 K/mm3 (0.0-0.1); Basophils Percent Auto 0.7 % (0.2-1.2); Eosinophils Absolute Auto 0.1 K/mm3 (0-0.3); Eosinophils Percent Auto 0.8 % (0-4.4); Hematocrit 33.3 % (42.0-52.0); Immature Granulocyte Absolute 0.11 K/mm3 (0.00-0.031); Immature Granulocyte Percent A 0.9 % (0-0.5); Lymphocytes Absolute Auto 2.08 K/mm3 (0.9-3.2); Lymphocytes Percent Auto 17.6 % (18.3-44.2); Mean Corpuscular Hemoglobin 27.6 pg (26-34); Mean Corpuscular Volume 83.7 fl (80-100); Mean Platelet Volume 10.9 fl (7.4-10.4); Monocytes Absolute Auto 1.3 K/mm3 (0.1-0.6); Monocytes Percent Auto 11.2 % (2.6-8.5); Neutrophils Absolute Auto 8.2 K/mm3 (1.3-6.7); Neutrophils Percent Auto 68.8 % (45.5-73.1); Platelet Count Result 287 k/mm3 (150-375); Red Blood Count 3.98 M/mm3 (4.6-6.20); Red Cell Distribution Width 13.2 % (11.5-14.5); White Blood Count 11.9 K/mm3 (4.5-10.0)
[2022-03-01 06:27] LABS: Alanine Aminotransferase 27 U/L (6-50); Albumin Level 2.9 g/dL (3.5-5.1); Alkaline Phosphatase 121 U/L (38-126); Anion Gap 4 mmol/L (8-16); Aspartate Amino Transferase 34 U/L (17-59); Bilirubin,Total 0.2 mg/dL (0.2-1.3); Blood Urea Nitrogen 9 mg/dL (9-20); Carbon Dioxide 27 mmol/L (22-30); Chloride 101 mmol/L (98-107); Estimated CRCL calculation 157 ml/min; Estimated Glomerular Filt Rate > 60; Glucose 231 mg/dL (65-110); Potassium 3.9 mmol/L (3.4-5.0); Sodium 132 mmol/L (137-145)
[2022-03-01 07:21] LABS: Glucose Point of Care 250 mg/dl (65-105)
--- NOTE | 2022-03-01 08:15 | P.PNIM_ITS ---
Progress Note: A&P Assessment and Plan (1) Osteomyelitis of foot, right, acute: Code(s): M86.171 - Other acute osteomyelitis, right ankle and foot Status: Acute Assessment and Plan: * CT showing cellulitis of the right foot without osteomyelitis * surgery has been consulted * wound Care will be consulted * wound cultures pending, prior cultures showed Group B Strep. * Diabetic control * Pain control. * MRI of foot showed osteomyelitis of the 5th metatarsal and 5th proximal phalanx * Patient made NPO * BKA scheduled for today of the right lower extremity * Continue IV antibiotics. * Will need probable [facility] antibiotics (2) Diabetic ulcer of right foot: Qualifiers: Diabetes mellitus type: type 2 Diabetic foot ulcer location: midfoot Non-pressure ulcer stage: unspecified non-pressure ulcer stage Qualified Code(s): E11.621 - Type 2 diabetes mellitus with foot ulcer; L97.419 - Non- pressure chronic ulcer of right heel and midfoot with unspecified severity Code(s): E11.621 - Type 2 diabetes mellitus with foot ulcer; L97.519 - Non-pressure chronic ulcer of other part of right foot with unspecified severity Status: Deleted Assessment and Plan: * WBC 20 on admission, WBC trending down and is currently 11.9 * CT showing cellulitis of the right foot without osteomyelitis * surgery has been consulted * wound Care will be consulted * wound cultures pending, prior cultures showed Group B Strep. * Diabetic control * Pain control. * MRI of foot showed osteomyelitis of the 5th metatarsal and 5th proximal phalanx * Patient made NPO. * BKA scheduled for today * Continue IV antibiotics. (3) Leukocytosis: Code(s): D72.829 - Elevated white blood cell count, unspecified Status: Acute Assessment and Plan: * Diabetic foot ulcer likely source. * ESR/CRP elevated. * Lactic acid 1.4. * Vital signs stable at this time. * Urine no growth, blood NGTD, * wound cultures grew group B strept * Continue vancomycin & Primaxin * Repeat a.m. labs * Continue IVF at this time. (4) Uncontrolled type II diabetes mellitus: Code(s): E11.65 - Type 2 diabetes mellitus with hyperglycemia Status: Acute Assessment and Plan: * Current glucose 231 * A1c on admission is 9.5. * Hold patient's home medications, likely these are in appropriate dosages as patient is not being actively managed. * Increase basal insulin 15 units and to BID * moderate dose sliding scale insulin * Accu-Cheks, diabetic diet. * Added 5 units with meals * special educator consulted (5) Hyponatremia: Code(s): E87.1 - Hypo-osmolality and hyponatremia Status: Acute Assessment and Plan: * Current Na 132 * seems to be stable * Continue gentle IV fluid resuscitation, continue to trend (6) Tobacco dependence: Code(s): F17.200 - Nicotine dependence, unspecified, uncomplicated Status: Acute Assessment and Plan: * Encouraged smoking cessation. Will offer nicotine patch during his stay. Time Spent With Patient Time with patient: Greater than 35 minutes Subjective Date/time seen: 03/01/22 08:15 Interval history: 03/01/22 0815 Patient was not all the way awake today. He stated that he is feeling ok and has no complaints. He was mostly concerned about getting a diet post procedure. He also denies any chest pain, shortness of breath, n
--- NOTE | 2022-03-01 08:15 | PM.IMPN ---
Progress Note: A&P Assessment and Plan (1) Osteomyelitis of foot, right, acute: Code(s): M86.171 - Other acute osteomyelitis, right ankle and foot Status: Acute Assessment and Plan: CT showing cellulitis of the right foot without osteomyelitis surgery has been consulted wound Care will be consulted wound cultures pending, prior cultures showed Group B Strep. Diabetic control Pain control. MRI of foot showed osteomyelitis of the 5th metatarsal and 5th proximal phalanx Patient made NPO BKA scheduled for today of the right lower extremity Continue IV antibiotics. Will need probable terminal supervisor antibiotics (2) Diabetic ulcer of right foot: Qualifiers: Diabetes mellitus type: type 2 Diabetic foot ulcer location: midfoot Non-pressure ulcer stage: unspecified non-pressure ulcer stage Qualified Code(s): E11.621 - Type 2 diabetes mellitus with foot ulcer; L97.419 - Non-pressure chronic ulcer of right heel and midfoot with unspecified severity Code(s): E11.621 - Type 2 diabetes mellitus with foot ulcer; L97.519 - Non-pressure chronic ulcer of other part of right foot with unspecified severity Status: Deleted Assessment and Plan: WBC 20 on admission, WBC trending down and is currently 11.9 CT showing cellulitis of the right foot without osteomyelitis surgery has been consulted wound Care will be consulted wound cultures pending, prior cultures showed Group B Strep. Diabetic control Pain control. MRI of foot showed osteomyelitis of the 5th metatarsal and 5th proximal phalanx Patient made NPO. BKA scheduled for today Continue IV antibiotics. (3) Leukocytosis: Code(s): D72.829 - Elevated white blood cell count, unspecified Status: Acute Assessment and Plan: Diabetic foot ulcer likely source. ESR/CRP elevated. Lactic acid 1.4. Vital signs stable at this time. Urine no growth, blood NGTD, wound cultures grew group B strept Continue vancomycin & Primaxin Repeat a.m. labs Continue IVF at this time. (4) Uncontrolled type II diabetes mellitus: Code(s): E11.65 - Type 2 diabetes mellitus with hyperglycemia Status: Acute Assessment and Plan: Current glucose 231 A1c on admission is 9.5. Hold patient's home medications, likely these are in appropriate dosages as patient is not being actively managed. Increase basal insulin 15 units and to BID moderate dose sliding scale insulin Accu-Cheks, diabetic diet. Added 5 units with meals clinical systems educator consulted (5) Hyponatremia: Code(s): E87.1 - Hypo-osmolality and hyponatremia Status: Acute Assessment and Plan: Current Na 132 seems to be stable Continue gentle IV fluid resuscitation, continue to trend (6) Tobacco dependence: Code(s): F17.200 - Nicotine dependence, unspecified, uncomplicated Status: Acute Assessment and Plan: Encouraged smoking cessation. Will offer nicotine patch during his stay. Time Spent With Patient Time with patient: Greater than 35 minutes Subjective Date/time seen: 03/01/22 08:15 Interval history: 03/01/22 0815 Patient was not all the way awake today. He stated that he is feeling ok and has no complaints. He was mostly concerned about getting a diet post procedure. He also denies any chest pain, shortness of breath, nausea, vomiting, diarrhea, constipation, weakness or fatigue. His foot has pain, however, he did state that it is well controlled with pain medications. Not sure if he is mentally prepared for this change. He stated that he was going to do what he had to do. Glucose is still relatively elevated. increased Lantus to BID. 02/28/22 1100 Patient was lying in bed his foot was draining a purulent drainage. Patient rates his pain about a 7/10. Patient stated that he is very frustrated because he has been doing ev
[2022-03-01 09:57] LABS: Glucose Point of Care 214 mg/dl (65-105)
--- NOTE | 2022-03-01 10:01 | P.PNAN_ITS ---
Anes - Eval Final PreProcedure Day of Procedure 03/01/22 10:01 Patient weight: normal Heart: regular rate and rhythm Lungs: clear to auscultation Airway: Mallampati scale class II Neurological: alert and oriented Last oral intake: >/= 8 hours ASA classification: III Emergent: no Anesthetic plan: proceed Anesthesia type and monitoring: general ETT and standard monitoring Results Review: All pre-operative results and documents have been reviewed as part of the pre- operative evaluation. Informed Consent: The patient's anesthetic plan and its attendant risks and benefits were discussed with the patient/family/POA. Questions were solicited and answers provided to the satisfaction of the patient/family/POA.
--- NOTE | 2022-03-01 10:19 | WPDHPUPDATE1 ---
History and Physical Update Update Date/Time: 03/01/22 10:19 History and Physical has been reviewed, including an updated exam of the patient. There are NO changes in the patient's condition. Risks, benefits, and alternatives have been discussed and questions answered. Patient agrees to proceed with procedure.
[2022-03-01] MEDS: LACTATED RINGERS 1,000 ML 30 ML IV CONT (12:12)
--- NOTE | 2022-03-01 12:14 | W.PM.PROC2 ---
Procedure Note - Detailed Date of Procedure 03/01/22 Pre-op Diagnosis Right foot diabetic wound infection, right foot osteomyelitis Post-op Diagnosis Same Procedure Performed Right below-knee amputation Surgeon Ciro Hanley DO Child Development Consultant Radha Rivera NP Anesthesia General Indications This is a 46-year-old man who presented with a right foot infection. He has a history of poorly controlled diabetes and had noticed a foot wound over the past several days. He was found to have an aggressive soft tissue necrotizing infection and was also found to have evidence of osteomyelitis. This was extending proximally on his foot including the metatarsals and skin proximally toward the ankle. There did not appear to be any way to perform just a partial amputation and have any chance of healing, therefore discussions were made with the patient about proceeding with below-knee amputation. Findings Right below-knee amputation was performed. The right foot appeared to have a necrotizing soft tissue infection and evidence of osteomyelitis on MRI. Description of Procedure Procedure as well as risks, benefits, and alternatives were discussed with the patient. Written consent was obtained and placed in chart prior to procedure. Patient was brought back to surgical suite. He was placed supine on operating table. Time-out was done to confirm patient and procedure. He was then intubated by the anesthesia department. His right leg was prepped and draped in sterile fashion using Betadine prep around the foot and chlorhexidine prep around the remainder of the lower leg. Tourniquet was used to help limit blood loss. Once the tourniquet was inflated, I then proceeded with the incision on the right leg. The incision was carried down through the skin and fascia all the way down to the muscle and periosteum. The periosteum of the tibia was cleared and the tibia was cleared from the muscle in surrounding attachments for about 3 cm proximal to the skin incision. The tibia was then transected using a bone saw. The front edge of the tibia was then also angled to prevent pressure necrosis on the stump. I then cleared the attachments in periosteum around the fibula and the fibula was cut with a bone saw about 1 cm proximal to the tibial transection point. The remaining muscle and fascia attachments were the transected using a 10 blade scalpel and the below-knee amputation was completely removed and sent to the lab for pathology. The vessels were then ligated using 0 Vicryl [id number] sutures. The tourniquet was then deflated and any other bleeding vessels were identified and ligated with 0 Vicryl [id number] sutures or with electrocautery. Hemostasis appeared adequate. The fascia was then reapproximated over the muscle using 0 Vicryl simple interrupted sutures. This appeared to adequately approximate the fascia and muscle over the stump. The skin edges were then reapproximated using 3-0 Prolene vertical mattress interrupted sutures. Bacitracin ointment was applied followed by Xeroform gauze, fluff gauze, ABD pad, Kerlix wrap, and double Oc wrap. A knee immobilizer was then also placed. The patient was then awakened from anesthesia, extubated, and transferred to recovery. Estimated Blood Loss 50 Urine Output 450 Pathology Yes (Right below-knee amputation) Condition Stable Disposition Floor [facility] Billing Surgery - Charge Forward: Surgery Billing
[2022-03-01] MEDS: HYDROmorphone HCL INJ (*CRX) 1 MG/ML SYR 0.25 MG IV PUSH ×13 (12:22→13:35)
[2022-03-01 12:32] LABS: Glucose Point of Care 188 mg/dl (65-105)
[2022-03-01] MEDS: LABETALOL HCL INJ 100 MG/20 ML VIAL 10 MG IV PUSH ×2 (12:46→13:03)
--- NOTE | 2022-03-01 13:44 | SUR.PHASEI ---
1340 DR LANIER AWARE OF BP 179/102 & HR 70- NO ADDITIONAL ORDERS TO TREAT AT THIS TIME. STATES PT CAN BE DISCHARGED FROM PACU & RETURN TO RM 346.
--- NOTE | 2022-03-01 14:10 | PC.NURSE ---
Patient returned from OR per bed 03/01/22 1410.
[2022-03-01] MEDS: oxyCODONE/ACETAMINOPHEN (*CRX) 5-325 MG TABLET 2 TABLET PO ×2 (14:29→20:46)
[2022-03-01 14:42] LABS: Glucose Point of Care 216 mg/dl (65-105)
[2022-03-01] MEDS: hydrALAZINE HCL 20 MG/ML VIAL 10 MG IV PUSH (16:27)
[2022-03-01] MEDS: HYDROmorphone HCL INJ (*CRX) 1 MG/ML SYR IV PUSH ×2 (16:28→23:08)
[2022-03-01 16:36] LABS: Glucose Point of Care 207 mg/dl (65-105)
[2022-03-01] MEDS: INSULIN ASPART (*BKC) 100 UNITS/ML SUB-Q ×2 (17:37→17:38)
[2022-03-01] MEDS: INSULIN GLARGINE (*BKC) 100 UNITS/ML 15 UNITS SUB-Q (17:42)
[2022-03-01] MEDS: HYDROmorphone HCL INJ (*CRX) 1 MG/ML SYR 2 MG IV PUSH (18:52)
[2022-03-01 20:27] LABS: Glucose Point of Care 163 mg/dl (65-105)
[2022-03-01] MEDS: SODIUM CHLORIDE 0.9% IV 1,000 ML 75 ML IV CONT (20:47)
[2022-03-02 00:11] VITALS: BP 166/86; PULSE 100; RESP 16; TEMP 36.9; O2SAT 100
[2022-03-02 04:11] VITALS: BP 158/86; PULSE 86; RESP 16; TEMP 36.6; O2SAT 97
[2022-03-02 04:25] LABS: Basophils Absolute Auto 0.1 K/mm3 (0.0-0.1); Basophils Percent Auto 0.6 % (0.2-1.2); Eosinophils Percent Auto 0.1 % (0-4.4); Hematocrit 38.3 % (42.0-52.0); Hemoglobin 13.3 g/dL (14.0-18.0); Immature Granulocyte Absolute 0.12 K/mm3 (0.00-0.031); Immature Granulocyte Percent A 0.7 % (0-0.5); Lymphocytes Absolute Auto 1.38 K/mm3 (0.9-3.2); Lymphocytes Percent Auto 7.8 % (18.3-44.2); Mean Corpuscular HGB Conc 34.7 g/dl (32-36); Mean Corpuscular Volume 80.6 fl (80-100); Mean Platelet Volume 10.2 fl (7.4-10.4); Monocytes Absolute Auto 1.8 K/mm3 (0.1-0.6); Monocytes Percent Auto 10.1 % (2.6-8.5); Neutrophils Absolute Auto 14.3 K/mm3 (1.3-6.7); Neutrophils Percent Auto 80.7 % (45.5-73.1); Platelet Count Result 379 k/mm3 (150-375); Red Blood Count 4.75 M/mm3 (4.6-6.20); Red Cell Distribution Width 12.8 % (11.5-14.5); White Blood Count 17.7 K/mm3 (4.5-10.0)
[2022-03-02 04:39] LABS: Alanine Aminotransferase 29 U/L (6-50); Albumin Level 3.4 g/dL (3.5-5.1); Alkaline Phosphatase 151 U/L (38-126); Anion Gap 6 mmol/L (8-16); Aspartate Amino Transferase 41 U/L (17-59); Bilirubin,Total 0.5 mg/dL (0.2-1.3); Blood Urea Nitrogen 4 mg/dL (9-20); Calcium 8.6 mg/dL (8.4-10.2); Carbon Dioxide 29 mmol/L (22-30); Chloride 96 mmol/L (98-107); Estimated CRCL calculation 157 ml/min; Estimated Glomerular Filt Rate > 60; Glucose 220 mg/dL (65-110); Potassium 4.1 mmol/L (3.4-5.0); Sodium 131 mmol/L (137-145)
[2022-03-02] MEDS: oxyCODONE/ACETAMINOPHEN (*CRX) 5-325 MG TABLET 2 TABLET PO ×4 (06:24→23:05)
[2022-03-02 07:43] LABS: Glucose Point of Care 269 mg/dl (65-105)
[2022-03-02 07:50] VITALS: BP 163/88; PULSE 80; RESP 18; TEMP 36.7; O2SAT 99
--- NOTE | 2022-03-02 08:15 | P.PNIM_ITS ---
Progress Note: A&P Assessment and Plan (1) Osteomyelitis of foot, right, acute: Code(s): M86.171 - Other acute osteomyelitis, right ankle and foot Status: Acute Assessment and Plan: * CT showing cellulitis of the right foot without osteomyelitis * surgery has been consulted * wound Care will be consulted * wound cultures pending, prior cultures showed Group B Strep. * Diabetic control * Pain control. * MRI of foot showed osteomyelitis of the 5th metatarsal and 5th proximal phalanx * Patient made NPO * BKA performed 03/01/22 * Continue IV antibiotics. * Will need probable intermediate manager antibiotics * Continue pain control (2) Leukocytosis: Code(s): D72.829 - Elevated white blood cell count, unspecified Status: Acute Assessment and Plan: * Diabetic foot ulcer likely source. * Currently 17.7 which is likely reactive to the BKA * ESR/CRP elevated. * Lactic acid 1.4. * Vital signs stable at this time. * Urine no growth, blood NGTD, * wound cultures grew group B strept and Prevotella species * Continue vancomycin & Primaxin * Repeat a.m. labs * Continue IVF at this time. (3) Uncontrolled type II diabetes mellitus: Code(s): E11.65 - Type 2 diabetes mellitus with hyperglycemia Status: Acute Assessment and Plan: * Current glucose 220 * A1c on admission is 9.5. * Hold patient's home medications, likely these are in appropriate dosages as patient is not being actively managed. * Increase basal insulin 25 units and to BID * moderate dose sliding scale insulin * Accu-Cheks, diabetic diet. * Increase 8 units with meals * primary special educator consulted (4) Hypertension: Code(s): I10 - Essential (primary) hypertension Status: Acute Assessment and Plan: * BP is running a bit high 163/88 * Most likely related to pain * Pain medications on board * Continue to trend BP * Adjust therapy as indicated * Added hydralazine 10mg IV Q8 with parameters (5) Hyponatremia: Code(s): E87.1 - Hypo-osmolality and hyponatremia Status: Acute Assessment and Plan: * Current Na 131 * seems to be stable * Continue gentle IV fluid resuscitation, continue to trend (6) Tobacco dependence: Code(s): F17.200 - Nicotine dependence, unspecified, uncomplicated Status: Acute Assessment and Plan: * Encouraged smoking cessation. Will offer nicotine patch during his stay. Time Spent With Patient Time with patient: Greater than 35 minutes Subjective Date/time seen: 03/02/22 08:15 Interval history: 03/01/22 0815 Patient was not all the way awake today. He stated that he is feeling ok and has no complaints. He was mostly concerned about getting a diet post procedure. He also denies any chest pain, shortness of breath, nausea, vomiting, diarrhea, constipation, weakness or fatigue. His foot has pain, however, he did state that it is well controlled with pain medications. Not sure if he is mentally prepared for this change. He stated that he was going to do what he had to do. Glucose is still relatively elevated. increased Lantus to BID. 02/28/22 1100 Patient was lying in bed his foot was draining a purulent drainage. Patient ra wil his pain about a 7/10. Patient stated that he is very frustrated because he has been doing everything that he needs to do and does understand why he is having this infection issue. Patient does wo
--- NOTE | 2022-03-02 08:15 | PM.IMPN ---
Progress Note: A&P Assessment and Plan (1) Osteomyelitis of foot, right, acute: Code(s): M86.171 - Other acute osteomyelitis, right ankle and foot Status: Acute Assessment and Plan: CT showing cellulitis of the right foot without osteomyelitis surgery has been consulted wound Care will be consulted wound cultures pending, prior cultures showed Group B Strep. Diabetic control Pain control. MRI of foot showed osteomyelitis of the 5th metatarsal and 5th proximal phalanx Patient made NPO BKA performed 03/01/22 Continue IV antibiotics. Will need probable group home antibiotics Continue pain control (2) Leukocytosis: Code(s): D72.829 - Elevated white blood cell count, unspecified Status: Acute Assessment and Plan: Diabetic foot ulcer likely source. Currently 17.7 which is likely reactive to the BKA ESR/CRP elevated. Lactic acid 1.4. Vital signs stable at this time. Urine no growth, blood NGTD, wound cultures grew group B strept and Prevotella species Continue vancomycin & Primaxin Repeat a.m. labs Continue IVF at this time. (3) Uncontrolled type II diabetes mellitus: Code(s): E11.65 - Type 2 diabetes mellitus with hyperglycemia Status: Acute Assessment and Plan: Current glucose 220 A1c on admission is 9.5. Hold patient's home medications, likely these are in appropriate dosages as patient is not being actively managed. Increase basal insulin 25 units and to BID moderate dose sliding scale insulin Accu-Cheks, diabetic diet. Increase 8 units with meals puppy walker consulted (4) Hypertension: Code(s): I10 - Essential (primary) hypertension Status: Acute Assessment and Plan: BP is running a bit high 163/88 Most likely related to pain Pain medications on board Continue to trend BP Adjust therapy as indicated Added hydralazine 10mg IV Q8 with parameters (5) Hyponatremia: Code(s): E87.1 - Hypo-osmolality and hyponatremia Status: Acute Assessment and Plan: Current Na 131 seems to be stable Continue gentle IV fluid resuscitation, continue to trend (6) Tobacco dependence: Code(s): F17.200 - Nicotine dependence, unspecified, uncomplicated Status: Acute Assessment and Plan: Encouraged smoking cessation. Will offer nicotine patch during his stay. Time Spent With Patient Time with patient: Greater than 35 minutes Subjective Date/time seen: 03/02/22 08:15 Interval history: 03/01/22 0815 Patient was not all the way awake today. He stated that he is feeling ok and has no complaints. He was mostly concerned about getting a diet post procedure. He also denies any chest pain, shortness of breath, nausea, vomiting, diarrhea, constipation, weakness or fatigue. His foot has pain, however, he did state that it is well controlled with pain medications. Not sure if he is mentally prepared for this change. He stated that he was going to do what he had to do. Glucose is still relatively elevated. increased Lantus to BID. 02/28/22 1100 Patient was lying in bed his foot was draining a purulent drainage. Patient rates his pain about a 7/10. Patient stated that he is very frustrated because he has been doing everything that he needs to do and does understand why he is having this infection issue. 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 He denies any chest pain, shortness of breath, nausea, vomiting, diarrhea, constipation, weakness or fatigue. Talked to the patient about the sub prior which I said that he probably needs to see. Start patient on Lantus for further control. 02/27/22? 09:04 Patient is a 46-year-old male with past medical history of diabetes and osteomyelitis, not currently under the care of the primary care physician, who presents to our care
[2022-03-02] MEDS: HYDROmorphone HCL INJ (*CRX) 1 MG/ML SYR IV PUSH (08:52)
[2022-03-02] MEDS: INSULIN ASPART (*BKC) 100 UNITS/ML SUB-Q ×3 (08:53→12:07)
[2022-03-02] MEDS: ENOXAPARIN 40 MG/0.4 ML SYRINGE SUB-Q (08:58)
[2022-03-02] MEDS: INSULIN GLARGINE (*BKC) 100 UNITS/ML 15 UNITS SUB-Q (08:58)
--- NOTE | 2022-03-02 09:11 | WPDANESPN ---
Anes - Prog Note Post-Op Date/Time: 03/02/22 09:11 Vital Signs: Last Vital Signs Temp 36.6 C 03/02/22 04:11 Pulse 86 03/02/22 04:11 Resp 16 03/02/22 04:11 BP 158/86 H 03/02/22 04:11 Pulse Ox 97 03/02/22 04:11 O2 Del Method Room Air 03/01/22 23:10 O2 Flow Rate 6 03/01/22 12:40 Pain Score (VAS): 0 I/O: Intake & Output 03/01/22 03/02/22 03/02/22 23:59 07:59 15:59 Intake Total 1540 450 Output Total 550 2550 Balance 990 -2100 Laboratory Tests 03/02/22 04:14 03/02/22 04:14 03/01/22 03/01/22 03/01/22 09:55 12:28 14:34 WBC RBC Hgb Hct MCV MCH MCHC RDW Plt Count MPV Immature Gran % (Auto) Neut % (Auto) Lymph % (Auto) [place] % (Auto) Eos % (Auto) Baso % (Auto) Lymph # (Auto) [place] # (Auto) Eos # (Auto) Baso # (Auto) Abs Immat Gran (auto) Absolute Neuts (auto) Absolute Nucleated RBC Nucleated RBC % Sodium Potassium Chloride Carbon Dioxide Anion Gap BUN Creatinine Estim Creat Clear Calc Estimated GFR Glucose POC Capillary Glucose 214 H 188 H 216 H Calcium Total Bilirubin AST ALT Alkaline Phosphatase Total Protein Albumin Vancomycin Trough 03/01/22 03/01/22 03/02/22 16:31 20:03 04:14 WBC 17.7 H RBC 4.75 Hgb 13.3 L Hct 38.3 L MCV 80.6 MCH 28.0 MCHC 34.7 RDW 12.8 Plt Count 379 H MPV 10.2 Immature Gran % (Auto) 0.7 H Neut % (Auto) 80.7 H Lymph % (Auto) 7.8 L [place] % (Auto) 10.1 H Eos % (Auto) 0.1 Baso % (Auto) 0.6 Lymph # (Auto) 1.38 [place] # (Auto) 1.8 H Eos # (Auto) 0.0 Baso # (Auto) 0.1 Abs Immat Gran (auto) 0.12 H Absolute Neuts (auto) 14.3 H Absolute Nucleated RBC 0.0 Nucleated RBC % 0.0 Sodium Potassium Chloride Carbon Dioxide Anion Gap BUN Creatinine Estim Creat Clear Calc Estimated GFR Glucose POC Capillary Glucose 207 H 163 H Calcium Total Bilirubin AST ALT Alkaline Phosphatase Total Protein Albumin Vancomycin Trough 03/02/22 03/02/22 03/02/22 04:14 04:14 07:38 WBC RBC Hgb Hct MCV MCH MCHC RDW Plt Count MPV Immature Gran % (Auto) Neut % (Auto) Lymph % (Auto) [place] % (Auto) Eos % (Auto) Baso % (Auto) Lymph # (Auto) [place] # (Auto) Eos # (Auto) Baso # (Auto) Abs Immat Gran (auto) Absolute Neuts (auto) Absolute Nucleated RBC Nucleated RBC % Sodium 131 L Potassium 4.1 Chloride 96 L Carbon Dioxide 29 Anion Gap 6 L BUN 4 L D Creatinine 0.50 L Estim Creat Clear Calc 157 Estimated GFR > 60 Glucose 220 H POC Capillary Glucose 269 H Calcium 8.6 Total Bilirubin 0.5 AST 41 ALT 29 Alkaline Phosphatase 151 H Total Protein 8.0 Albumin 3.4 L Vancomycin Trough 7.0 L Microbiology 02/27/22 15:47 Foot Right Anaerobic Culture - Preliminary 02/27/22 15:47 Foot Right Aerobic Culture - Preliminary Group B Streptococcus isolated 02/26/22 23:54 Foot Right Wound Culture - Final Group B Streptococcus isolated Patient Feedback: Patient satisfied with anesthetic care.
[2022-03-02 11:32] LABS: Glucose Point of Care 230 mg/dl (65-105)
--- NOTE | 2022-03-02 11:49 | PM.PNGS ---
Progress Note: A&P Assessment and Plan (1) Diabetic infection of right foot: Code(s): E11.628 - Type 2 diabetes mellitus with other skin complications; L08.9 - Local infection of the skin and subcutaneous tissue, unspecified Status: Acute Assessment and Plan: s/p Right BKA 03/01/22 Continue working on pain control and PT/OT Will plan to remove dressing in 1-2 days to look at incision Elevate RLE while in bed Home once surgically/medically stable and discharge therapy arrangements have been made. (2) Osteomyelitis of foot, right, acute: Code(s): M86.171 - Other acute osteomyelitis, right ankle and foot Status: Acute (3) Uncontrolled type II diabetes mellitus: Code(s): E11.65 - Type 2 diabetes mellitus with hyperglycemia Status: Acute (4) Tobacco dependence: Code(s): F17.200 - Nicotine dependence, unspecified, uncomplicated Status: Acute Subjective Subjective Date/Time Seen: 03/02/22 11:49 Interval history: Patient had a lot of pain overnight but says it's a little better today. No other complaints. Exam Extrem: Other: Right BKA dressing dry. Leg in knee immobilizer. Objective Data Vital Signs Vital Signs: Vital Signs - 24 hr 03/01/22 12:12 03/01/22 12:25 03/01/22 12:46 Temperature 36.4 C L Pulse Rate 96 90 79 Respiratory Rate 14 14 Blood Pressure 184/106 H 194/107 H Pulse Oximetry 100 100 Oxygen Delivery Simple Face Mask Simple Face Mask Oxygen Flow Rate 6 6 03/01/22 12:55 03/01/22 13:10 03/01/22 12:40 Temperature Pulse Rate 72 72 79 Respiratory Rate 14 12 14 Blood Pressure 192/103 H 188/104 H 194/104 H Pulse Oximetry 100 96 100 Oxygen Delivery Room Air Room Air Simple Face Mask Oxygen Flow Rate 6 03/01/22 13:25 03/01/22 13:40 03/01/22 13:55 Temperature Pulse Rate 75 69 70 Respiratory Rate 14 12 12 Blood Pressure 167/98 H 177/99 H 168/96 H Pulse Oximetry 98 97 98 Oxygen Delivery Room Air Room Air Room Air Oxygen Flow Rate 03/01/22 14:10 03/01/22 14:25 03/01/22 14:55 Temperature 36.9 C 37.8 C H 36.9 C Pulse Rate 71 70 68 Respiratory Rate 16 16 16 Blood Pressure 188/100 H 190/101 H 191/101 H Pulse Oximetry 100 100 100 Oxygen Delivery Oxygen Flow Rate 03/01/22 15:59 03/01/22 17:34 03/01/22 20:00 Temperature 36.9 C 37.1 C Pulse Rate 68 85 Respiratory Rate 16 18 Blood Pressure 199/104 H 182/97 H 158/93 H Pulse Oximetry 100 100 Oxygen Delivery Oxygen Flow Rate 03/02/22 00:11 03/02/22 04:11 03/01/22 23:10 Temperature 36.9 C 36.6 C Pulse Rate 100 86 Respiratory Rate 16 16 Blood Pressure 166/86 H 158/86 H Pulse Oximetry 100 97 97 Oxygen Delivery Room Air Oxygen Flow Rate 03/02/22 07:50 Temperature 36.7 C Pulse Rate 80 Respiratory Rate 18 Blood Pressure 163/88 H Pulse Oximetry 99 Oxygen Delivery Oxygen Flow Rate Intake/Output Intake/Output: Intake & Output 02/27/22 02/28/22 03/01/22 03/02/22 23:59 23:59 23:59 23:59 Intake Total 4520 5410 3740 450 Output Total 600 2450 2550 Balance 4520 4810 1290 -2100 Meds/Results Medications: Active Medications Generic Name Dose Route Start Last Admin Trade Name Humphreyq PRN Reason Stop Dose Admin Acetaminophen 650 mg 02/27/22 16:56 Acetaminophen 325 Mg Tablet PO Q6H PRN Mild Pain (1-3) or Fever Dextrose 12.5 gm 02/27/22 02:48 Dextrose 50% 25 Gm/50 Ml Syringe IV PUSH PRN PRN Hypoglycemia Protocol Enoxaparin Sodium 40 mg 03/02/22 09:00 03/02/22 08:58 Enoxaparin 40 Mg/0.4 Ml Syringe SUB-Q 40 mg DAILY FELIPE Administration Glucagon 1 mg 02/27/22 02:48 Glucagon For Inj 1 Mg Vial IM PRN PRN Hypoglycemia Protocol Glucose 15 gm 02/27/22 02:48 Glucose Oral Gel 15 Gm Of Glucse In 37.5 Gm Tube PO PRN PRN Hypoglycemia Protocol Hydralazine HCl 10 mg 03/01/22 14:26 03/01/22 16:27 Hydralazine Hcl 20 Mg/Ml Vial IV PUSH
[2022-03-02 11:50] VITALS: BP 159/89; PULSE 86; RESP 18; TEMP 36.8; O2SAT 99
[2022-03-02] MEDS: INSULIN ASPART (*BKC) 100 UNITS/ML 8 UNITS SUB-Q (12:06)
[2022-03-02] MEDS: SODIUM CHLORIDE 0.9% IV 1,000 ML 75 ML IV CONT (12:11)
--- NOTE | 2022-03-02 14:52 | PCOTNOTE ---
Attempted OT evaluation. Patient refused any/all activity at this time, stating he is in pain and doesn't feel like it. Will continue to attempt.
[2022-03-02 15:50] VITALS: BP 148/74; PULSE 86; RESP 16; TEMP 36.6; O2SAT 100
[2022-03-02 16:22] LABS: Glucose Point of Care 72 mg/dl (65-105)
[2022-03-02 20:10] VITALS: BP 159/93; PULSE 80; RESP 18; TEMP 37.2; O2SAT 100
[2022-03-02 20:24] LABS: Glucose Point of Care 237 mg/dl (65-105)
[2022-03-02] MEDS: INSULIN GLARGINE (*BKC) 100 UNITS/ML 25 UNITS SUB-Q (20:59)
[2022-03-03] MEDS: SODIUM CHLORIDE 0.9% IV 1,000 ML 75 ML IV CONT (01:44)
[2022-03-03] MEDS: oxyCODONE/ACETAMINOPHEN (*CRX) 5-325 MG TABLET 2 TABLET PO ×5 (04:19→23:29)
[2022-03-03 05:23] LABS: Basophils Absolute Auto 0.1 K/mm3 (0.0-0.1); Basophils Percent Auto 0.5 % (0.2-1.2); Eosinophils Absolute Auto 0.1 K/mm3 (0-0.3); Eosinophils Percent Auto 0.6 % (0-4.4); Hematocrit 37.7 % (42.0-52.0); Hemoglobin 12.3 g/dL (14.0-18.0); Immature Granulocyte Absolute 0.16 K/mm3 (0.00-0.031); Immature Granulocyte Percent A 1.1 % (0-0.5); Lymphocytes Absolute Auto 2.01 K/mm3 (0.9-3.2); Lymphocytes Percent Auto 13.7 % (18.3-44.2); Mean Corpuscular HGB Conc 32.6 g/dl (32-36); Mean Corpuscular Hemoglobin 27.3 pg (26-34); Mean Corpuscular Volume 83.6 fl (80-100); Mean Platelet Volume 9.9 fl (7.4-10.4); Monocytes Percent Auto 13.8 % (2.6-8.5); Neutrophils Absolute Auto 10.3 K/mm3 (1.3-6.7); Neutrophils Percent Auto 70.3 % (45.5-73.1); Platelet Count Result 367 k/mm3 (150-375); Red Blood Count 4.51 M/mm3 (4.6-6.20); Red Cell Distribution Width 13.2 % (11.5-14.5); White Blood Count 14.7 K/mm3 (4.5-10.0)
[2022-03-03 05:36] VITALS: BP 162/89; PULSE 72; RESP 18; O2SAT 100
[2022-03-03 05:37] LABS: Alanine Aminotransferase 26 U/L (6-50); Albumin Level 3.1 g/dL (3.5-5.1); Alkaline Phosphatase 168 U/L (38-126); Anion Gap 5 mmol/L (8-16); Aspartate Amino Transferase 50 U/L (17-59); Bilirubin,Total 0.4 mg/dL (0.2-1.3); Blood Urea Nitrogen 6 mg/dL (9-20); Calcium 8.2 mg/dL (8.4-10.2); Carbon Dioxide 28 mmol/L (22-30); Chloride 99 mmol/L (98-107); Estimated CRCL calculation 133 ml/min; Estimated Glomerular Filt Rate > 60; Glucose 207 mg/dL (65-110); Potassium 4.4 mmol/L (3.4-5.0); Sodium 132 mmol/L (137-145)
[2022-03-03 05:41] VITALS: TEMP 37.1
[2022-03-03] MEDS: hydrALAZINE HCL 20 MG/ML VIAL 10 MG IV PUSH (05:41)
[2022-03-03 07:35] LABS: Glucose Point of Care 253 mg/dl (65-105)
[2022-03-03] MEDS: INSULIN ASPART (*BKC) 100 UNITS/ML 8 UNITS SUB-Q ×2 (08:53→12:04)
[2022-03-03] MEDS: INSULIN GLARGINE (*BKC) 100 UNITS/ML 25 UNITS SUB-Q ×2 (08:56→21:11)
[2022-03-03] MEDS: ENOXAPARIN 40 MG/0.4 ML SYRINGE SUB-Q (08:56)
--- NOTE | 2022-03-03 09:00 | P.PNIM_ITS ---
Progress Note: A&P Assessment and Plan (1) Osteomyelitis of foot, right, acute: Code(s): M86.171 - Other acute osteomyelitis, right ankle and foot Status: Acute Assessment and Plan: * CT showing cellulitis of the right foot without osteomyelitis * surgery is on the case * wound Care will be consulted * wound cultures grew prevotella species and Group B streptococcus * Diabetic control * Pain control. * MRI of foot showed osteomyelitis of the 5th metatarsal and 5th proximal phalanx * Diet advanced * BKA performed 03/01/22 * IV antibiotics continued pramaxin and vancomycin * Will need probable buttermilk drier operator IV antibiotics * Continue pain control (2) Uncontrolled type II diabetes mellitus: Code(s): E11.65 - Type 2 diabetes mellitus with hyperglycemia Status: Acute Assessment and Plan: * Current glucose 207 * A1c on admission is 9.5. * Hold patient's home medications, likely these are in appropriate dosages as patient is not being actively managed. * Increase basal insulin 25 units and to BID * moderate dose sliding scale insulin, change to high dose sliding scale * Accu-Cheks, diabetic diet. * Increase 8 units with meals * consumer educator consulted (3) Hypertension: Code(s): I10 - Essential (primary) hypertension Status: Acute Assessment and Plan: * BP is running a bit high 162/89 * Add amlodipine 5mg PO daily * Most likely related to pain * Pain medications on board * Continue to trend BP * Adjust therapy as indicated * Added hydralazine 10mg IV Q8 with parameters (4) Hyponatremia: Code(s): E87.1 - Hypo-osmolality and hyponatremia Status: Acute Assessment and Plan: * Current Na 132 * seems to be stable * Continue gentle IV fluid resuscitation, continue to trend (5) Tobacco dependence: Code(s): F17.200 - Nicotine dependence, unspecified, uncomplicated Status: Acute Assessment and Plan: * Encouraged smoking cessation. Will offer nicotine patch during his stay. Time Spent With Patient Time with patient: Greater than 35 minutes Subjective Date/time seen: 03/03/22 09:00 Interval history: 03/03/22 09 Patient stated that he is doing okay today. His big complaint is pain. He says his pain is up there about a 9/10 however he does state the pain medicine is effective in working. He denies any chest pain, shortness is breath, nausea, vomiting, diarrhea, constipation, weakness or fatigue. 03/02/22 0815 patient seems to be doing okay today.? He does have a lot of pain however he denies any chest pain, shortness of breath, nausea, vomiting, diarrhea, constipation, weakness or fatigue.? He did say that the pain medicine is working.? I think most of his hypertension is from the pain. 03/01/22 0815 Patient was not all the way awake today. He stated that he is feeling ok and has no complaints. He was mostly concerned about getting a diet post procedure. He also denies any chest pain, shortness of breath, nausea, vomiting, diarrhea, constipation, weakness or fatigue. His foot has pain, however, he did state that it is well controlled with pain medications. Not sure if he is mentally prepared for this change. He stated that he was going to do what he had to do. Glucose is still relatively elevated. increased Lantus to BID. 02/28/22 1100 Patient was lying in bed his foot was draining a purulent drainage. Patient rates his pain about a 7
--- NOTE | 2022-03-03 09:00 | PM.IMPN ---
Progress Note: A&P Assessment and Plan (1) Osteomyelitis of foot, right, acute: Code(s): M86.171 - Other acute osteomyelitis, right ankle and foot Status: Acute Assessment and Plan: CT showing cellulitis of the right foot without osteomyelitis surgery is on the case wound Care will be consulted wound cultures grew prevotella species and Group B streptococcus Diabetic control Pain control. MRI of foot showed osteomyelitis of the 5th metatarsal and 5th proximal phalanx Diet advanced BKA performed 03/01/22 IV antibiotics continued pramaxin and vancomycin Will need probable termite helper IV antibiotics Continue pain control (2) Uncontrolled type II diabetes mellitus: Code(s): E11.65 - Type 2 diabetes mellitus with hyperglycemia Status: Acute Assessment and Plan: Current glucose 207 A1c on admission is 9.5. Hold patient's home medications, likely these are in appropriate dosages as patient is not being actively managed. Increase basal insulin 25 units and to BID moderate dose sliding scale insulin, change to high dose sliding scale Accu-Cheks, diabetic diet. Increase 8 units with meals coding educator consulted (3) Hypertension: Code(s): I10 - Essential (primary) hypertension Status: Acute Assessment and Plan: BP is running a bit high 162/89 Add amlodipine 5mg PO daily Most likely related to pain Pain medications on board Continue to trend BP Adjust therapy as indicated Added hydralazine 10mg IV Q8 with parameters (4) Hyponatremia: Code(s): E87.1 - Hypo-osmolality and hyponatremia Status: Acute Assessment and Plan: Current Na 132 seems to be stable Continue gentle IV fluid resuscitation, continue to trend (5) Tobacco dependence: Code(s): F17.200 - Nicotine dependence, unspecified, uncomplicated Status: Acute Assessment and Plan: Encouraged smoking cessation. Will offer nicotine patch during his stay. Time Spent With Patient Time with patient: Greater than 35 minutes Subjective Date/time seen: 03/03/22 09:00 Interval history: 03/03/22 0900 Patient stated that he is doing okay today. His big complaint is pain. He says his pain is up there about a 9/10 however he does state the pain medicine is effective in working. He denies any chest pain, shortness is breath, nausea, vomiting, diarrhea, constipation, weakness or fatigue. 03/02/22 0815 patient seems to be doing okay today.? He does have a lot of pain however he denies any chest pain, shortness of breath, nausea, vomiting, diarrhea, constipation, weakness or fatigue.? He did say that the pain medicine is working.? I think most of his hypertension is from the pain. 03/01/22 0815 Patient was not all the way awake today. He stated that he is feeling ok and has no complaints. He was mostly concerned about getting a diet post procedure. He also denies any chest pain, shortness of breath, nausea, vomiting, diarrhea, constipation, weakness or fatigue. His foot has pain, however, he did state that it is well controlled with pain medications. Not sure if he is mentally prepared for this change. He stated that he was going to do what he had to do. Glucose is still relatively elevated. increased Lantus to BID. 02/28/22 1100 Patient was lying in bed his foot was draining a purulent drainage. Patient rates his pain about a 7/10. Patient stated that he is very frustrated because he has been doing everything that he needs to do and does understand why he is having this infection issue. 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 He denies any chest pain, shortness of breath, nausea, vomiting, diarrhea, constipation, weakness or fatigue. Talked to the patient about the breastfeeding educator which I said that he probably needs to see. Start patient on Lantus f
[2022-03-03] MEDS: amLODIPine BESYLATE 5 MG TABLET PO (09:39)
--- NOTE | 2022-03-03 11:04 | PM.PNGS ---
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 work with case management for short stay at rehab hospital versus outpatient rehab. (2) Osteomyelitis of foot, right, acute: Code(s): M86.171 - Other acute osteomyelitis, right ankle and foot Status: Acute Assessment and Plan: Now status post BKA amputation on the right. Doing well postop day 2 (3) Uncontrolled type II diabetes mellitus: Code(s): E11.65 - Type 2 diabetes mellitus with hyperglycemia Status: Acute Assessment and Plan: as per hospitalist. (4) Tobacco dependence: Code(s): F17.200 - Nicotine dependence, unspecified, uncomplicated Status: Acute Assessment and Plan: Will reinforce smoking cessation. Subjective Subjective Date/Time Seen: 03/03/22 11:04 Post Op day: 2 ( Doing well with pain control.) Interval history: patient in bed with right leg and stump elevated. States he is periodically taking pain medication usually oral that is occasionally supplemented by IV medication for breakthrough pain. Review of Systems Review of Systems: All systems reviewed & are unremarkable except as noted in HPI and below Constitutional: Constitutional: Reports as per HPI, Denies chills and Denies fever(s) Cardiovascular: Cardiovascular: Denies chest pain and Denies dyspnea Respiratory: Respiratory: Reports no additional respiratory complaints and Denies dyspnea Gastrointestinal: Gastrointestinal: Reports as per HPI and Denies bloating Musculoskeletal: Musculoskeletal: Reports no additional musculoskeletal complaints Neurologic: Denies memory loss Psychiatric: Psychiatric: Denies anxiety and Denies memory loss Exam Const: General: cooperative, comfortable, alert and awake Orientation/consciousness: patient oriented x3 HENMT: Head: normal to inspection Mouth: Yes moist mucous membranes Eyes: Sclera: sclerae normal Pupils: Equal, round and reactive pupils present Neck: Neck: normal visual inspection and no JVD Chest: Chest palpation & inspection: normal inspection of the chest Resp: Effort & Inspection: normal respiratory effort Neuro: General: patient oriented x3 Cranial nerves: Yes Equal, round and reactive pupils present Extrem: Right lower extremity: normal to inspection ( No significant edema) Other: patient's BK stump unwrap today and rewrapped. There was dried bloody drainage along the incision and on the dressing. All dressings were removed and a new dressing of Xeroform, 4x4s, Kerlix roll, and Oc wrap was applied. Incision looks healthy and there are no signs of infection. Objective Data Vital Signs Vital Signs: Vital Signs - 24 hr 03/02/22 11:50 03/02/22 15:50 03/02/22 20:10 Temperature 36.8 C 36.6 C 37.2 C Pulse Rate 86 86 80 Respiratory Rate 18 16 18 Blood Pressure 159/89 H 148/74 H 159/93 H Pulse Oximetry 99 100 100 Oxygen Delivery 03/02/22 20:00 03/03/22 05:36 03/03/22 05:41 Temperature 37.1 C Pulse Rate 72 Respiratory Rate 18 Blood Pressure 162/89 H Pulse Oximetry 100 Oxygen Delivery Room Air 03/03/22 08:00 Temperature Pulse Rate Respiratory Rate Blood Pressure Pulse Oximetry Oxygen Delivery Room Air Intake/Output Intake/Output: Intake & Output 02/28/22 03/01/22 03/02/22 03/03/22 23:59 23:59 23:59 23:59 Intake Total 5410 3740 3670 1340 Output Total 600 2450 4200 400 Balance 4810 1290 -530 940 Meds/Results Medications: Active Medicatio
[2022-03-03 11:31] LABS: Glucose Point of Care 201 mg/dl (65-105)
[2022-03-03] MEDS: INSULIN ASPART (*BKC) 100 UNITS/ML SUB-Q (12:03)
[2022-03-03 14:00] VITALS: BP 130/77; PULSE 71; RESP 16; TEMP 36.8; O2SAT 100
[2022-03-03 16:50] LABS: Glucose Point of Care 80 mg/dl (65-105)
[2022-03-03 18:43] LABS: Vancomycin Trough 8.5 ug/mL (10.0-20.0)
[2022-03-03 20:31] VITALS: O2SAT 98
[2022-03-03 21:15] LABS: Glucose Point of Care 313 mg/dl (65-105)
[2022-03-03 22:00] VITALS: BP 133/70; PULSE 81; RESP 16; TEMP 37.2; O2SAT 100
[2022-03-04] MEDS: oxyCODONE/ACETAMINOPHEN (*CRX) 5-325 MG TABLET 2 TABLET PO ×4 (03:25→21:37)
[2022-03-04 06:00] VITALS: BP 136/75; PULSE 64; RESP 16; TEMP 36.5; O2SAT 100
[2022-03-04 06:14] LABS: Basophils Absolute Auto 0.1 K/mm3 (0.0-0.1); Basophils Percent Auto 0.7 % (0.2-1.2); Eosinophils Absolute Auto 0.1 K/mm3 (0-0.3); Eosinophils Percent Auto 0.9 % (0-4.4); Hematocrit 35.2 % (42.0-52.0); Hemoglobin 12.1 g/dL (14.0-18.0); Immature Granulocyte Absolute 0.17 K/mm3 (0.00-0.031); Immature Granulocyte Percent A 1.4 % (0-0.5); Lymphocytes Absolute Auto 2.54 K/mm3 (0.9-3.2); Lymphocytes Percent Auto 20.5 % (18.3-44.2); Mean Corpuscular HGB Conc 34.4 g/dl (32-36); Mean Corpuscular Hemoglobin 28.3 pg (26-34); Mean Corpuscular Volume 82.2 fl (80-100); Monocytes Absolute Auto 1.5 K/mm3 (0.1-0.6); Monocytes Percent Auto 12.2 % (2.6-8.5); Neutrophils Percent Auto 64.3 % (45.5-73.1); Platelet Count Result 402 k/mm3 (150-375); Red Blood Count 4.28 M/mm3 (4.6-6.20); Red Cell Distribution Width 13.2 % (11.5-14.5); White Blood Count 12.4 K/mm3 (4.5-10.0)
[2022-03-04 06:24] LABS: Alanine Aminotransferase 22 U/L (6-50); Albumin Level 3.2 g/dL (3.5-5.1); Alkaline Phosphatase 136 U/L (38-126); Anion Gap 3 mmol/L (8-16); Aspartate Amino Transferase 30 U/L (17-59); Bilirubin,Total 0.1 mg/dL (0.2-1.3); Blood Urea Nitrogen 10 mg/dL (9-20); Calcium 8.1 mg/dL (8.4-10.2); Carbon Dioxide 27 mmol/L (22-30); Chloride 102 mmol/L (98-107); Estimated CRCL calculation 133 ml/min; Estimated Glomerular Filt Rate > 60; Glucose 110 mg/dL (65-110); Potassium 3.8 mmol/L (3.4-5.0); Sodium 132 mmol/L (137-145)
[2022-03-04 07:32] LABS: Glucose Point of Care 82 mg/dl (65-105)
[2022-03-04] MEDS: amLODIPine BESYLATE 5 MG TABLET PO (08:33)
[2022-03-04] MEDS: ENOXAPARIN 40 MG/0.4 ML SYRINGE SUB-Q (08:33)
--- NOTE | 2022-03-04 11:30 | PM.IMPN ---
Progress Note: A&P Assessment and Plan (1) Osteomyelitis of foot, right, acute: Code(s): M86.171 - Other acute osteomyelitis, right ankle and foot Status: Acute Assessment and Plan: CT showing cellulitis of the right foot without osteomyelitis surgery is on the case wound Care will be consulted wound cultures grew prevotella species and Group B streptococcus Diabetic control Pain control, seems to be appropiate MRI of foot showed osteomyelitis of the 5th metatarsal and 5th proximal phalanx Diet advanced BKA performed 03/01/22 IV antibiotics continued Primaxin and vancomycin Will need probable taxonomist IV antibiotics Continue pain control Seems pain is the problem at this time, adjust therapy as indicated (2) Uncontrolled type II diabetes mellitus: Code(s): E11.65 - Type 2 diabetes mellitus with hyperglycemia Status: Acute Assessment and Plan: Current glucose 110 A1c on admission is 9.5. Hold patient's home medications, likely these are in appropriate dosages as patient is not being actively managed. Increase basal insulin 25 units and to BID moderate dose sliding scale insulin, change to high dose sliding scale Accu-Cheks, diabetic diet. Increase 8 units with meals family living educator consulted (3) Hypertension: Code(s): I10 - Essential (primary) hypertension Status: Acute Assessment and Plan: BP is running a bit high 136/75 Add amlodipine 5mg PO daily Most likely related to pain Pain medications on board Continue to trend BP Adjust therapy as indicated Added hydralazine 10mg IV Q8 with parameters (4) Hyponatremia: Code(s): E87.1 - Hypo-osmolality and hyponatremia Status: Acute Assessment and Plan: Current Na 132 seems to be stable (5) Tobacco dependence: Code(s): F17.200 - Nicotine dependence, unspecified, uncomplicated Status: Acute Assessment and Plan: Encouraged smoking cessation. Will offer nicotine patch during his stay. Time Spent With Patient Time with patient: Greater than 35 minutes Subjective Date/time seen: 03/04/22 11:30 Interval history: 03/04/22 11:30 Patient seems to be doing well today. He was up playing on his phone. Patient does seem very depressed and withdrawn. He did state that he was still have an pain which he rates about an 8 today. He denies any chest pain, shortness of breath, nausea, vomiting, diarrhea, constipation, weakness or fatigue. He did state that he was eating. 03/03/22 0900 Patient stated that he is doing okay today. His big complaint is pain. He says his pain is up there about a 9/10 however he does state the pain medicine is effective in working. He denies any chest pain, shortness is breath, nausea, vomiting, diarrhea, constipation, weakness or fatigue. 03/02/22 0815 patient seems to be doing okay today.? He does have a lot of pain however he denies any chest pain, shortness of breath, nausea, vomiting, diarrhea, constipation, weakness or fatigue.? He did say that the pain medicine is working.? I think most of his hypertension is from the pain. 03/01/22 0815 Patient was not all the way awake today. He stated that he is feeling ok and has no complaints. He was mostly concerned about getting a diet post procedure. He also denies any chest pain, shortness of breath, nausea, vomiting, diarrhea, constipation, weakness or fatigue. His foot has pain, however, he did state that it is well controlled with pain medications. Not sure if he is mentally prepared for this change. He stated that he was going to do what he had to do. Glucose is still relatively elevated. increased Lantus to BID. 02/28/22 1100 Patient was lying in bed his foot was draining a purulent drainage. Patient rates his pain about a 7/10. Patient stated that he is very frustrated because he has been doing everything that
--- NOTE | 2022-03-04 11:30 | P.PNIM_ITS ---
Progress Note: A&P Assessment and Plan (1) Osteomyelitis of foot, right, acute: Code(s): M86.171 - Other acute osteomyelitis, right ankle and foot Status: Acute Assessment and Plan: * CT showing cellulitis of the right foot without osteomyelitis * surgery is on the case * wound Care will be consulted * wound cultures grew prevotella species and Group B streptococcus * Diabetic control * Pain control, seems to be appropiate * MRI of foot showed osteomyelitis of the 5th metatarsal and 5th proximal phalanx * Diet advanced * BKA performed 03/01/22 * IV antibiotics continued Primaxin and vancomycin * Will need probable filler leaf cutter long IV antibiotics * Continue pain control * Seems pain is the problem at this time, adjust therapy as indicated (2) Uncontrolled type II diabetes mellitus: Code(s): E11.65 - Type 2 diabetes mellitus with hyperglycemia Status: Acute Assessment and Plan: * Current glucose 110 * A1c on admission is 9.5. * Hold patient's home medications, likely these are in appropriate dosages as patient is not being actively managed. * Increase basal insulin 25 units and to BID * moderate dose sliding scale insulin, change to high dose sliding scale * Accu-Cheks, diabetic diet. * Increase 8 units with meals * medical educator consulted (3) Hypertension: Code(s): I10 - Essential (primary) hypertension Status: Acute Assessment and Plan: * BP is running a bit high 136/75 * Add amlodipine 5mg PO daily * Most likely related to pain * Pain medications on board * Continue to trend BP * Adjust therapy as indicated * Added hydralazine 10mg IV Q8 with parameters (4) Hyponatremia: Code(s): E87.1 - Hypo-osmolality and hyponatremia Status: Acute Assessment and Plan: * Current Na 132 * seems to be stable (5) Tobacco dependence: Code(s): F17.200 - Nicotine dependence, unspecified, uncomplicated Status: Acute Assessment and Plan: * Encouraged smoking cessation. Will offer nicotine patch during his stay. Time Spent With Patient Time with patient: Greater than 35 minutes Subjective Date/time seen: 03/04/22 11:30 Interval history: 03/04/22 11:30 Patient seems to be doing well today. He was up playing on his phone. Patient does seem very depressed and withdrawn. He did state that he was still have an pain which he rates about an 8 today. He denies any chest pain, shortness of breath, nausea, vomiting, diarrhea, constipation, weakness or fatigue. He did state that he was eating. 03/03/22 0900 Patient stated that he is doing okay today. His big complaint is pain. He says his pain is up there about a 9/10 however he does state the pain medicine is effective in working. He denies any chest pain, shortness is breath, nausea, vomiting, diarrhea, constipation, weakness or fatigue. 03/02/22 08 patient seems to be doing okay today.? He does have a lot of pain however he denies any chest pain, shortness of breath, nausea, vomiting, diarrhea, constipation, weakness or fatigue.? He did say that the pain medicine is working .? I think most of his hypertension is from the pain. 03/01/22814 Patient was not all the way awake today. He stated that he is feeling ok and has no complaints. He was mostly concerned about getting a diet post procedure. He also denies any chest pain, shortness of breath, nausea, vomiting, diarrhea, constipation, weakn
[2022-03-04 11:44] LABS: Glucose Point of Care 137 mg/dl (65-105)
[2022-03-04 14:10] VITALS: BP 134/79; PULSE 88; RESP 18; TEMP 36.5; O2SAT 100
--- NOTE | 2022-03-04 15:42 | PCPTNOTE ---
Patient declined ambulation with therapy this date. Per RN, patient has been up and walking to/from the bathroom independently. Notified Physical Therapist as well.
[2022-03-04 16:30] LABS: Glucose Point of Care 245 mg/dl (65-105)
[2022-03-04] MEDS: INSULIN ASPART (*BKC) 100 UNITS/ML 8 UNITS SUB-Q (16:30)
[2022-03-04] MEDS: INSULIN ASPART (*BKC) 100 UNITS/ML SUB-Q (16:31)
[2022-03-04 18:45] LABS: Vancomycin Trough 15.6 ug/mL (10.0-20.0)
--- NOTE | 2022-03-04 19:50 | PM.PNGS ---
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 to look at incision again. Elevate RLE while in bed Home once surgically/medically stable and discharge therapy arrangements have been made. work with case management for short stay at rehab hospital versus outpatient rehab. (2) Osteomyelitis of foot, right, acute: Code(s): M86.171 - Other acute osteomyelitis, right ankle and foot Status: Acute Assessment and Plan: Now status post BKA amputation on the right. Doing well postop day 2 (3) Uncontrolled type II diabetes mellitus: Code(s): E11.65 - Type 2 diabetes mellitus with hyperglycemia Status: Acute Assessment and Plan: as per hospitalist. (4) Tobacco dependence: Code(s): F17.200 - Nicotine dependence, unspecified, uncomplicated Status: Acute Assessment and Plan: Will reinforce smoking cessation. Additional Plan If wound looks good tomorrow may be able to stop all antibiotics. Subjective Subjective Date/Time Seen: 03/04/22 19:50 Post Op day: 3 (Pain improving each day) Interval history: States he is doing OK mentally. Offered an anti-depressant, but he said he didn't want it. Review of Systems Review of Systems: All systems reviewed & are unremarkable except as noted in HPI and below Constitutional: Constitutional: Reports as per HPI, Denies chills, Denies fatigue, Denies fever(s) and Denies poor appetite Cardiovascular: Cardiovascular: Denies dyspnea Respiratory: Respiratory: Reports no additional respiratory complaints and Denies dyspnea Gastrointestinal: Gastrointestinal: Reports as per HPI Exam Const: General: cooperative, comfortable, alert and awake Orientation/consciousness: patient oriented x3 HENMT: Mouth: Yes moist mucous membranes Neck: Neck: no JVD Resp: Effort & Inspection: normal respiratory effort Neuro: General: patient oriented x3 Cranial nerves: Yes Equal, round and reactive pupils present Psych: Mental Status: mental status grossly normal Affect: normal affect Attitude: cooperative Insight: Good insight present (Psych) Judgement: Good judgement present (Psych) Objective Data Vital Signs Vital Signs: Vital Signs - 24 hr 03/03/22 20:31 03/03/22 22:00 03/04/22 06:00 Temperature 37.2 C 36.5 C Pulse Rate 81 64 Respiratory Rate 16 16 Blood Pressure 133/70 136/75 Pulse Oximetry 98 100 100 Oxygen Delivery Room Air 03/04/22 14:10 Temperature 36.5 C Pulse Rate 88 Respiratory Rate 18 Blood Pressure 134/79 Pulse Oximetry 100 Oxygen Delivery Intake/Output Intake/Output: Intake & Output 03/01/22 03/02/22 03/03/22 03/04/22 23:59 23:59 23:59 23:59 Intake Total 3740 3670 2820 2850 Output Total 2450 4200 3300 750 Balance 1290 530 -845 2100 Meds/Results Medications: Active Medications Generic Name Dose Route Start Last Admin Trade Name Freq PRN Reason Stop Dose Admin Acetaminophen 650 mg 02/27/22 16:56 Acetaminophen 325 Mg Tablet PO Q6H PRN Mild Pain (1-3) or Fever Amlodipine Besylate 5 mg 03/03/22 09:00 03/04/22 08:33 Amlodipine Besylate 5 Mg Tablet PO 5 mg QAM FELIPE Administration Dextrose 12.5 gm 02/27/22 02:48 Dextrose 50% 25 Gm/50 Ml Syringe IV PUSH PRN PRN Hypoglycemia Protocol Enoxaparin Sodium 40 mg 03/02/22 09:00 03/04/22 08:33 Enoxaparin 40 Mg/0.4 Ml Syringe SUB-Q 40 mg DAILY FELIPE Administration Glucagon 1 mg 02/27/22 02:48 Glucagon For Inj 1 Mg Vial IM PRN PRN Hypoglycemia Protocol Glucose 15 gm 02/27/22 02:48 Glucose Oral Gel 15 Gm Of Glucse In 37.5
[2022-03-04 20:02] VITALS: BP 149/81; PULSE 98; RESP 16; TEMP 36.1; O2SAT 98
[2022-03-04] MEDS: INSULIN GLARGINE (*BKC) 100 UNITS/ML 25 UNITS SUB-Q (20:22)
[2022-03-04 20:45] LABS: Glucose Point of Care 152 mg/dl (65-105)
[2022-03-05] MEDS: oxyCODONE/ACETAMINOPHEN (*CRX) 5-325 MG TABLET 2 TABLET PO ×3 (02:30→14:36)
[2022-03-05 05:21] VITALS: BP 132/76; PULSE 68; RESP 18; TEMP 36.4; O2SAT 100
[2022-03-05 05:46] LABS: Basophils Absolute Auto 0.1 K/mm3 (0.0-0.1); Basophils Percent Auto 0.7 % (0.2-1.2); Eosinophils Absolute Auto 0.1 K/mm3 (0-0.3); Eosinophils Percent Auto 0.6 % (0-4.4); Hematocrit 34.7 % (42.0-52.0); Hemoglobin 11.6 g/dL (14.0-18.0); Immature Granulocyte Absolute 0.26 K/mm3 (0.00-0.031); Immature Granulocyte Percent A 1.9 % (0-0.5); Lymphocytes Absolute Auto 1.98 K/mm3 (0.9-3.2); Lymphocytes Percent Auto 14.6 % (18.3-44.2); Mean Corpuscular HGB Conc 33.4 g/dl (32-36); Mean Corpuscular Hemoglobin 27.6 pg (26-34); Mean Corpuscular Volume 82.6 fl (80-100); Mean Platelet Volume 9.9 fl (7.4-10.4); Monocytes Absolute Auto 1.4 K/mm3 (0.1-0.6); Monocytes Percent Auto 10.4 % (2.6-8.5); Neutrophils Absolute Auto 9.7 K/mm3 (1.3-6.7); Neutrophils Percent Auto 71.8 % (45.5-73.1); Platelet Count Result 438 k/mm3 (150-375); Red Cell Distribution Width 13.2 % (11.5-14.5); White Blood Count 13.5 K/mm3 (4.5-10.0)
[2022-03-05 05:56] LABS: Alanine Aminotransferase 30 U/L (6-50); Albumin Level 3.1 g/dL (3.5-5.1); Alkaline Phosphatase 149 U/L (38-126); Anion Gap 3 mmol/L (8-16); Aspartate Amino Transferase 45 U/L (17-59); Bilirubin,Total 0.2 mg/dL (0.2-1.3); Blood Urea Nitrogen 8 mg/dL (9-20); Calcium 8.3 mg/dL (8.4-10.2); Carbon Dioxide 29 mmol/L (22-30); Chloride 101 mmol/L (98-107); Estimated CRCL calculation 133 ml/min; Estimated Glomerular Filt Rate > 60; Glucose 112 mg/dL (65-110); Magnesium 1.9 mg/dL (1.6-2.3); Potassium 3.6 mmol/L (3.4-5.0); Sodium 133 mmol/L (137-145)
[2022-03-05 07:49] LABS: Glucose Point of Care 78 mg/dl (65-105)
[2022-03-05] MEDS: amLODIPine BESYLATE 5 MG TABLET PO (09:14)
[2022-03-05] MEDS: ENOXAPARIN 40 MG/0.4 ML SYRINGE SUB-Q (09:14)
--- NOTE | 2022-03-05 11:00 | P.DS_ITS ---
DS: Admitting Diagnosis Discharge Date 03/05/22 1100 Admitting Diagnosis Osteomyelitis of the right foot DS: Discharge Diagnosis Discharge Diagnosis (1) Osteomyelitis of foot, right, acute: Code(s): M86.171 - Other acute osteomyelitis, right ankle and foot Status: Acute Assessment and Plan: * CT showing cellulitis of the right foot without osteomyelitis * surgery is on the case * wound Care will be consulted * wound cultures grew Prevotella species and Group B streptococcus * Diabetic control * Pain control, seems to be appropriate * MRI of foot showed osteomyelitis of the 5th metatarsal and 5th proximal phalanx * Diet advanced * BKA performed 03/01/22 * POD 4 * Dressing changes per general surgery * IV antibiotics continued Primaxin and vancomycin, can probably be stopped * Continue pain control * Seems pain is the problem at this time, adjust therapy as indicated (2) Uncontrolled type II diabetes mellitus: Code(s): E11.65 - Type 2 diabetes mellitus with hyperglycemia Status: Acute Assessment and Plan: * Current glucose 112 * A1c on admission is 9.5.? * Hold patient's home medications, likely these are in appropriate dosages as patient is not being actively managed. * Increase basal insulin 25 units and to BID * moderate dose sliding scale insulin, change to high dose sliding scale * Accu-Cheks, diabetic diet. * Increase 8 units with meals * community nutrition educator consulted (3) Hyponatremia: Code(s): E87.1 - Hypo-osmolality and hyponatremia Status: Acute Assessment and Plan: * Current Na 133 * seems to be stable (4) Tobacco dependence: Code(s): F17.200 - Nicotine dependence, unspecified, uncomplicated Status: Acute Assessment and Plan: * Encouraged smoking cessation. Will offer nicotine patch during his stay (5) Hypertension: Code(s): I10 - Essential (primary) hypertension Status: Acute Assessment and Plan: * BP is running a bit high 132/76 * Add amlodipine 5mg PO daily * Most likely related to pain * Pain medications on board * Continue to trend BP * Adjust therapy as indicated * Added hydralazine 10mg IV Q8 with parameters DS: Summary Hospital Course Hospital Course: Patient is a 46-year-old male with a past history diabetic neuropathy, osteomyelitis, diabetes who presented to the ED with right foot pain. Upon arrival patient was noted to have a WBC of 20.7, CRP of 8.9 and glucose of [address] of the foot showed no evidence of osteomyelitis however the MRI of the foot did show osteomyelitis. General surgery was consulted and the best option for this patient was a BKA which was performed on 03/01/2022. Wound cultures did grow provotella species and Group B streptococcus. patient was also started on Primaxin and vancomycin upon arrival for infection control. Glucose has came down with increase in insulin. Current glucose is in the 1 teens. Patient was placed in Lantus 25 units b.i.d., 8 units with meals and high sliding scale. Has also noted the patient's blood pressure is running pretty high probably related to pain. However patient was started on amlodipine 5 mg p.o. daily and blood pressure is more stable and currently 136/75 today. Patient was also noted to be hyponatremic upon arrival is which has corrected quite nicely at 132. Patient is cur
--- NOTE | 2022-03-05 11:00 | PM.DS ---
DS: Admitting Diagnosis Discharge Date 03/05/22 1100 Admitting Diagnosis Osteomyelitis of the right foot DS: Discharge Diagnosis Discharge Diagnosis (1) Osteomyelitis of foot, right, acute: Code(s): M86.171 - Other acute osteomyelitis, right ankle and foot Status: Acute Assessment and Plan: CT showing cellulitis of the right foot without osteomyelitis surgery is on the case wound Care will be consulted wound cultures grew Prevotella species and Group B streptococcus Diabetic control Pain control, seems to be appropriate MRI of foot showed osteomyelitis of the 5th metatarsal and 5th proximal phalanx Diet advanced BKA performed 03/01/22 POD 4 Dressing changes per general surgery IV antibiotics continued Primaxin and vancomycin, can probably be stopped Continue pain control Seems pain is the problem at this time, adjust therapy as indicated (2) Uncontrolled type II diabetes mellitus: Code(s): E11.65 - Type 2 diabetes mellitus with hyperglycemia Status: Acute Assessment and Plan: Current glucose 112 A1c on admission is 9.5.? Hold patient's home medications, likely these are in appropriate dosages as patient is not being actively managed. Increase basal insulin 25 units and to BID moderate dose sliding scale insulin, change to high dose sliding scale Accu-Cheks, diabetic diet. Increase 8 units with meals political research scientist consulted (3) Hyponatremia: Code(s): E87.1 - Hypo-osmolality and hyponatremia Status: Acute Assessment and Plan: Current Na 133 seems to be stable (4) Tobacco dependence: Code(s): F17.200 - Nicotine dependence, unspecified, uncomplicated Status: Acute Assessment and Plan: Encouraged smoking cessation. Will offer nicotine patch during his stay (5) Hypertension: Code(s): I10 - Essential (primary) hypertension Status: Acute Assessment and Plan: BP is running a bit high 132/76 Add amlodipine 5mg PO daily Most likely related to pain Pain medications on board Continue to trend BP Adjust therapy as indicated Added hydralazine 10mg IV Q8 with parameters DS: Summary Hospital Course Hospital Course: Patient is a 46-year-old male with a past history diabetic neuropathy, osteomyelitis, diabetes who presented to the ED with right foot pain. Upon arrival patient was noted to have a WBC of 20.7, CRP of 8.9 and glucose of [address] of the foot showed no evidence of osteomyelitis however the MRI of the foot did show osteomyelitis. General surgery was consulted and the best option for this patient was a BKA which was performed on 03/01/2022. Wound cultures did grow provotella species and Group B streptococcus. patient was also started on Primaxin and vancomycin upon arrival for infection control. Glucose has came down with increase in insulin. Current glucose is in the 1 teens. Patient was placed in Lantus 25 units b.i.d., 8 units with meals and high sliding scale. Has also noted the patient's blood pressure is running pretty high probably related to pain. However patient was started on amlodipine 5 mg p.o. daily and blood pressure is more stable and currently 136/75 today. Patient was also noted to be hyponatremic upon arrival is which has corrected quite nicely at 132. Patient is currently feeling okay sitting in chair working with PT and OT. Patient does exhibit a few signs and symptoms of depression. Patient is stable for discharge at this time including labs and vital signs. Patient feels okay and does still have pain however is stating pain medicine is controlling his pain at this time. He currently denies any chest pain, shortness of breath, nausea, vomiting, diarrhea, constipation, weakness and fatigue. Status at Discharge Functional status at discharge: uses cane/walker Overall status at disch
--- NOTE | 2022-03-05 11:01 | PCOTNOTE ---
Attempted to see patient this am, however patient reported, Oh I already did that, in regards to ADLs.
[2022-03-05 11:42] LABS: Glucose Point of Care 149 mg/dl (65-105)
[2022-03-05] MEDS: INSULIN ASPART (*BKC) 100 UNITS/ML 8 UNITS SUB-Q (12:38)
--- NOTE | 2022-03-05 15:23 | PM.PNGS ---
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 Continue with xeroform and gauze dressing changes, applied stump sock today for compression. Okay from our standpoint to discharge patient to [facility] and okay to stop antibiotics on discharge. Follow-up with Dr. Hanley in 2 weeks. (2) Osteomyelitis of foot, right, acute: Code(s): M86.171 - Other acute osteomyelitis, right ankle and foot Status: Acute Assessment and Plan: S/p BKA. Okay to stop antibiotics. (3) Uncontrolled type II diabetes mellitus: Code(s): E11.65 - Type 2 diabetes mellitus with hyperglycemia Status: Acute (4) Tobacco dependence: Code(s): F17.200 - Nicotine dependence, unspecified, uncomplicated Status: Acute Additional Plan I have discussed the patient's case and plan of care with Dr. Rojas. Subjective Subjective Date/Time Seen: 03/05/22 13:23 Post Op day: 4 (right BKA) Patient reports: tolerating a regular diet and afebrile Interval history: Patient seen and examined with Dr. Rojas. He reports feeling well today. He is using a walker to transfer in the room and doing well with this. His pain is controlled. No other complaints at this time. Review of Systems Review of Systems: All systems reviewed & are unremarkable except as noted in HPI and below Exam Const: General: comfortable and awake Nutritional Appearance: average body habitus Orientation/consciousness: patient oriented x3 Skin: Other: Right BKA stump dressing removed, mild swelling noted with small amount of serosanguineous drainage coming from the center of the incision, no erythema or signs of infection. Reapplied xeroform gauze covered with 4x4 gauze and placed the stump sock. Knee immobilizer reapplied. Neuro: General: moves all extremities and no focal motor deficits Extrem: General: no edema (no edema to LLE) Psych: Insight: Good insight present (Psych) Judgement: Good judgement present (Psych) Objective Data Vital Signs Vital Signs: Vital Signs - 24 hr 03/04/22 20:02 03/05/22 05:21 03/05/22 08:00 Temperature 97 F L 97.6 F Pulse Rate 98 68 Respiratory Rate 16 18 Blood Pressure 149/81 H 132/76 Pulse Oximetry 98 100 Oxygen Delivery Room Air Intake/Output Intake/Output: Intake & Output 03/02/22 03/03/22 03/04/22 03/05/22 23:59 23:59 23:59 23:59 Intake Total 3670 2820 3750 1810 Output Total 4200 3300 1050 1900 Balance -530 -480 2700 -90 Meds/Results Radiology Results: ITS Impressions Foot X-Ray 02/27/22 06:54 Impression: 1: No acute bone or joint abnormality. 2: Moderate soft tissue gas overlying the fourth and fifth metatarsals. If there is concern for underlying osteomyelitis, consider correlation with MRI. Foot CT 02/27/22 08:26 IMPRESSION: 1. Moderate soft tissue swelling with associated emphysema involving the anterior lateral foot, consistent with cellulitis. No evidence for osteomyelitis. Consider correlation with MRI with contrast. Foot MRI 02/27/22 14:13 IMPRESSION: 1. Osteomyelitis involving the fifth metatarsal and fifth proximal phalanx. 2. Soft tissue necrosis in the dorsal lateral forefoot measuring 5.6 x 1.1 x 8.3 cm. Labs Labs: Laboratory Results - last 24 hr 03/04/22 03/04/22 03/04/22 16:21 18:12 20:04 WBC RBC Hgb Hct MCV MCH MCHC RDW Plt Count MPV Immature Gran % (Auto) Neut % (Auto) Lymph % (Auto) [place] % (Auto) Eos % (Auto) Baso % (Auto) Lymph # (Auto) [place] # (Auto) Eos # (Auto) Baso # (Auto) Abs Immat Gran (auto) Absolute Neuts (auto) Absolute Nucl
== END 2022-03-05 15:00 | DRG 305 ==
LOC: ANHED 02-27 01:24 → ANH3MED 02-27 03:47
PROVIDERS: Student in an Organized Health Care Education/Training Program; Surgery; Admitting Provider Internal Medicine; Emergency Provider Nurse Practitioner Family; Visit Provider Nurse Practitioner
PROC: 0KBV0ZZ Excision of Right Foot Muscle, Open Approach (ICD-10-PCS; principal; 2022-02-27 15:00)
PROC: 0Y6H0Z3 Detachment at Right Lower Leg, Low, Open Approach (ICD-10-PCS; CPT 27882; principal; 2022-03-01 11:00)
DX: E11.69 Type 2 diabetes mellitus with other specified complication (principal); E11.628 Type 2 diabetes mellitus with other skin complications; E11.42 Type 2 diabetes mellitus with diabetic polyneuropathy; F17.210 Nicotine dependence, cigarettes, uncomplicated; E11.621 Type 2 diabetes mellitus with foot ulcer; L03.115 Cellulitis of right lower limb; Z56.0 Unemployment, unspecified; Z79.84 Long term (current) use of oral hypoglycemic drugs; L97.419 Non-pressure chronic ulcer of right heel and midfoot with unspecified severity; D72.829 Elevated white blood cell count, unspecified; E11.65 Type 2 diabetes mellitus with hyperglycemia; E87.1 Hypo-osmolality and hyponatremia; Z91.120 Patient's intentional underdosing of medication regimen due to financial hardship; M86.171 Other acute osteomyelitis, right ankle and foot; I10 Essential (primary) hypertension; B95.1 Streptococcus, group B, as the cause of diseases classified elsewhere
CPT/HCPCS: 36415; 73630; 73700; 73720; 80053; 80202; 81001; 82948; 83036; 83605; 83735; 85025; 85610; 85652; 85730; 86140; 87040; 87070; 87075; 87076; 87077; 87086; 87088; 87185; 87205; 88307; 88311; 96361; 96365; 96367; 96375; 97110; 97116; 97161; 97165; 97530; 99285; A9270; A9577; C9803; G0378; J0330; J0360; J0743; J1170; J1650; J1815; J2250; J2270; J2405; J2704; J3010; J3370; J7030; J7120; L1830; U0003; U0005